=== PATIENT | female | born 1965 | race African-American/Black ===

== ENCOUNTER 2020-03-28 00:33 | Day surgery (SDC) | payer BC, SELFPAY ==
[2020-03-25 14:37] VITALS: BMI 37.8
[2020-03-28 06:25] VITALS: BP 130/94; PULSE 79; RESP 14; TEMP 36.6; O2SAT 100
[2020-03-28 06:28] VITALS: BMI 40.6
--- NOTE | 2020-03-28 07:01 | WPDANESEPPF ---
Anes - Initial Pre Proc Eval Procedure: Operation Date: 03/28/20 07:30 Proposed Procedures p Screening Colonoscopy - Arie Castro MD Date/Time: 03/28/20 07:01 Surgeon: Arie Castro MD Pre Op Diagnosis: Neoplasm Screening Patient Data Age: 55 Gender: F Height: 5 ft 4 in Weight: 107.3 kg Last Vital Signs Temp 36.6 C 03/28/20 06:25 Pulse 79 03/28/20 06:25 Resp 14 03/28/20 06:25 BP 130/94 H 03/28/20 06:25 Pulse Ox 100 03/28/20 06:25 Allergies Allergy/AdvReac Type Severity Reaction Status Date / Time No Known Allergies Allergy Verified 03/28/20 06:18 Home Medications Medication Instructions Recorded Confirmed Type ergocalciferol (vitamin D2) 1,250 mcg PO WEEKLY 03/25/20 03/28/20 History [Vitamin D2] hydrochlorothiazide 12.5 mg PO QAM PRN 03/25/20 03/25/20 History metoprolol succinate 50 mg PO DAILY PRN 03/25/20 03/25/20 History sertraline 25 mg PO DAILY PRN 03/25/20 03/25/20 History sumatriptan succinate 50 mg PO ONCE PRN 03/25/20 03/25/20 History Patient hx anesthesia problems: none Family hx anesthesia problems: none [facility] Family History Family History Mother Hypertension Family history of elevated blood lipids Family history of diabetes mellitus in first degree relative Grandparent Cerebrovascular accident Social History Social History Smoking status: Never smoker Second hand tobacco smoke exposure: No Alcohol intake: current Drinks per week: 1 Substance use: never Substance use type: does not use Gender identity (if verbalized by the patient): Female Anes - Eval Final PreProcedure Day of Procedure 03/28/20 07:01 Patient weight: morbidly obese Heart: regular rate and rhythm Lungs: clear to auscultation Airway: Mallampati scale class II Neurological: alert and oriented Last oral intake: >/= 8 hours ASA classification: III Emergent: no Anesthesia type and monitoring: standard monitoring Informed Consent: The patient's anesthetic plan and its attendant risks and benefits were discussed with the patient/family/POA. Questions were solicited and answers provided to the satisfaction of the patient/family/POA.
--- NOTE | 2020-03-28 07:12 | P.HP_ITS ---
History of Present Illness History of Present Illness Consent: Risks, benefits, and alternatives have been discussed and questions answered. Patient agrees to proceed with procedure. Chief complaint: Neoplasm Screening Narrative: Maggie Belcher is a 55 year old femaleWith a history of polyps. [facility] Family History Family History Mother Hypertension Family history of elevated blood lipids Family history of diabetes mellitus in first degree relative Grandparent Cerebrovascular accident Social History Social History Smoking status: Never smoker Second hand tobacco smoke exposure: No Alcohol intake: current Drinks per week: 1 Substance use: never Substance use type: does not use Gender identity (if verbalized by the patient): Female Meds Home Medications and Allergies Home Medications Medication Instructions Recorded Confirmed Type ergocalciferol (vitamin D2) 1,250 mcg PO WEEKLY 03/25/20 03/28/20 History [Vitamin D2] hydrochlorothiazide 12.5 mg PO QAM PRN 03/25/20 03/25/20 History metoprolol succinate 50 mg PO DAILY PRN 03/25/20 03/25/20 History sertraline 25 mg PO DAILY PRN 03/25/20 03/25/20 History sumatriptan succinate 50 mg PO ONCE PRN 03/25/20 03/25/20 History Allergies Allergy/AdvReac Type Severity Reaction Status Date / Time No Known Allergies Allergy Verified 03/28/20 06:18 Vital Signs Vital Signs - 24 hr 03/28/20 06:25 Temperature 36.6 C Pulse Rate 79 Respiratory Rate 14 Blood Pressure 130/94 H Pulse Oximetry 100 Exam Resp: Auscultation: clear to auscultation bilaterally Cardio: Rate: regular rate Rhythm: regular rhythm GI: GI Palp: Yes Soft to palpation and No Tenderness to palpation present (GI) Assessment and Plan Assessment and plan (1) Family history of colonic polyps: Code(s): Z83.71 - Family history of colonic polyps Status: Acute Assessment and Plan: Colonoscopy with possible biopsy or polypectomy or cautery or injection of substances.
[2020-03-28] MEDS: LACTATED RINGERS 1,000 ML 150 ML IV CONT (07:17)
[2020-03-28 07:46] VITALS: BP 115/77; PULSE 77; RESP 27; O2SAT 100
[2020-03-28 07:56] VITALS: BP 122/85; PULSE 71; RESP 24; O2SAT 100
[2020-03-28 08:06] VITALS: BP 132/89; PULSE 63; RESP 18; O2SAT 100
[2020-03-28 08:16] VITALS: BP 130/89; PULSE 63; RESP 16; O2SAT 100
== END 2020-03-28 08:20 | disposition home or self-care (01) ==
PROVIDERS: PCP Family Medicine; Visit Provider Internal Medicine Gastroenterology
PROC: 0DJD8ZZ Inspection of Lower Intestinal Tract, Via Natural or Artificial Opening Endoscopic (ICD-10-PCS; CPT 45378; principal; 2020-03-28 07:30)
DX: Z12.11 Encounter for screening for malignant neoplasm of colon (principal); D12.3 Benign neoplasm of transverse colon; K63.5 Polyp of colon; K64.8 Other hemorrhoids; Z83.71 Family history of colonic polyps; E66.01 Morbid (severe) obesity due to excess calories; Z68.41 Body mass index [BMI] 40.0-44.9, adult
CPT/HCPCS: 45380; 88305; J2704; J7120

== ENCOUNTER → 2020-12-09 11:18 | Outpatient (CLI) | payer BC, SELFPAY ==
--- NOTE | ~2020-12-09 | MM_ITS ---
EXAMINATION: MM screening maged BI w tomasa HISTORY: Screening mammogram TECHNIQUE: Craniocaudal and mediolateral oblique 3-D tomosynthesis images were obtained and synthetic 2-D images were generated. CAD analysis was submitted and interpreted. COMPARISON: No prior mammogram is available for comparison at this institution. BREAST PARENCHYMAL COMPOSITION: There are scattered areas of fibroglandular density. FINDINGS: There are bilateral asymmetries involving the upper outer quadrants primarily. Bilateral diagnostic mammography is recommended, with ultrasound if required. IMPRESSION: 1. Bilateral mammographic asymmetries 2. Bilateral diagnostic mammography is recommended, with ultrasound if required BI-RADS Category 0: Incomplete: Needs additional imaging evaluation. Reviewed, dictated and finalized at location A. TION MIXER
== END ==
PROVIDERS: PCP Family Medicine; Visit Provider Physician Assistant
DX: Z12.31 Encounter for screening mammogram for malignant neoplasm of breast (principal); R92.8 Other abnormal and inconclusive findings on diagnostic imaging of breast
CPT/HCPCS: 77063; 77067

== ENCOUNTER 2021-01-26 08:09 | Outpatient (CLI) | payer BC, SELFPAY ==
--- NOTE | ~2021-01-26 | MMUS_ITS ---
EXAMINATION: MM diagnostic maged BI w tomasa, US breast BI limited HISTORY: Bilateral upper outer quadrant mammographic asymmetries reported on 12/09/2020 bilateral digi lawrence screening mammogram TECHNIQUE: Additional 3-D tomosynthesis images of both breasts were performed and synthetic 2-D image s were generated. CAD analysis was submitted and interpreted. High resolution bilateral upper outer q uadrant breast ultrasound was performed. COMPARISON: 12/09/2020 bilateral digital screening mammogram FINDINGS: MAMMOGRAPHIC FINDINGS: Bilateral upper outer quadrant mammographic asymmetry is again noted. An approximately 7 mm mass is present in the upper outer quadrant of the left breast. ULTRASOUND: Right breast: Approximately 3.5 mm sonolucency with through transmission posterior enhancement at 10: 00 4 cm from nipple, consistent with small cyst. No suspicious mass is detected in the right breast. Left breast: Approximately 6 x 7 mm sonolucency with through transmission and no internal vascularit y, consistent with simple cyst at 1:00 5 cm from nipple. No suspicious mass is detected in the left breast. IMPRESSION: 1. No mammographic evidence of malignancy 2. Routine annual mammographic screening is recommended. BI-RADS Category 2: Benign finding(s). Reviewed, dictated and finalized at location A. UNDERWRITER IMPRESSION: 1. No mammographic evidence of malignancy 2. Routine annual mammographic screening is recommended. BI-RADS Category 2: Benign finding(s).
== END 2021-01-26 08:10 ==
LOC: MICIMG 08:09
PROVIDERS: PCP Family Medicine; Visit Provider Physician Assistant
DX: R92.8 Other abnormal and inconclusive findings on diagnostic imaging of breast (principal)
CPT/HCPCS: 76642; 77062; 77066; G0279

== ENCOUNTER 2022-01-21 07:47 | Outpatient (CLI) | payer BC, SELFPAY ==
--- NOTE | ~2022-01-21 | US_ITS ---
EXAMINATION: US abdomen limited DATE: 01/21/2022 08:14 INDICATION: Abnormal liver function tests. Right upper quadrant abdominal pain. TECHNIQUE: Multiple grayscale and Doppler ultrasound images of the abdomen were obtained. COMPARISON: None FINDINGS: The visualized portions of the head, body, and tail of the pancreas are normal. There is a 1.6 cm hyperechoic mass in the liver. No liver surface nodularity. The gallbladder is normal in size. No gallstones or gallbladder wall thickening. There was no sonographic Delacruz sign. The common duct is normal and measures 3 mm. IMPRESSION: 1. 1.6 cm hyperechoic liver mass. In the absence of known malignancy or chronic liver disease, this f inding is likely a hemangioma. Reviewed, dictated and finalized at location A. OYEE PLACEMENT SPECIALIST IMPRESSION: 1. 1.6 cm hyperechoic liver mass. In the absence of known malignancy or chronic liver disease, this finding is likely a hemangioma.
== END 2022-01-21 07:48 | disposition home or self-care (01) ==
LOC: ANHIMG 07:51
PROVIDERS: PCP Family Medicine; Visit Provider Nurse Practitioner Gerontology
DX: R74.8 Abnormal levels of other serum enzymes (principal); R16.0 Hepatomegaly, not elsewhere classified
CPT/HCPCS: 76705

== ENCOUNTER 2022-04-06 08:15 | Outpatient (CLI) | payer BC, SELFPAY ==
--- NOTE | ~2022-04-06 | MR_ITS ---
EXAMINATION: MR abdomen wo/w con DATE: 04/06/2022 09:30 INDICATION: Hyperechoic liver mass. TECHNIQUE: Magnetic resonance imaging (MRI) of the abdomen was performed without and with 20 mL Multi natanael intravenous contrast. Sequences included coronal T2-weighted SS-FSE, coronal and axial FS 2D-F IESTA, axial STIR FSE, axial T2-weighted SS-FSE, axial T2-weighted FS SS-FSE, axial diffusion-weighte d SE, axial dual-echo T1-weighted FSPGR, and axial and coronal T1-weighted LAVA. Postcontrast axial T 1-weighted LAVA images were obtained in a time course. Postcontrast coronal T1-weighted LAVA images w ere obtained. COMPARISON: Ultrasound dated 01/21/2022 FINDINGS: There are couple T2 hyperintense hepatic hemangiomas demonstrating characteristic discontiguous perip heral puddling of contrast which fills in on delayed imaging. Hemangiomas measure 1.3 cm in segment 2 of the liver and 1.3 cm in the right hepatic lobe, the latter corresponding to the hyperechoic lesio n identified on prior ultrasound, the hyperechoic appearance again classic for hemangioma. The lesion in segment 2 of the liver is not visualized on the provided ultrasound images. Liver is otherwise un remarkable. Heart size is normal. No pericardial or pleural effusion. Gallbladder, spleen, pancreas, bilateral adrenal glands and kidneys are normal. Visualized portions of the bowels are unremarkable. No pathologically enlarged abdominal lymphadenopathy. Schmorl's node along the superior endplate of L 4. IMPRESSION: 1. A couple 1.3 cm hepatic hemangiomas. Reviewed, dictated and finalized at location A.
[2022-04-06 08:49] LABS: Estimated Glomerular Filt Rate > 60
== END 2022-04-06 08:16 | disposition home or self-care (01) ==
PROVIDERS: PCP Internal Medicine; Visit Provider Internal Medicine
DX: R16.0 Hepatomegaly, not elsewhere classified (principal)
CPT/HCPCS: 74183; A9577

== ENCOUNTER → 2022-04-09 15:46 | Outpatient (CLI) | payer BC, SELFPAY ==
--- NOTE | ~2022-04-09 | MM_ITS ---
EXAMINATION: MM screening maged BI w tomasa HISTORY: Screening mammogram TECHNIQUE: Craniocaudal and mediolateral oblique 3-D tomosynthesis images were obtained and synthetic 2-D images were generated. CAD analysis was submitted and interpreted. COMPARISON: 02/05/2021 bilateral diagnostic mammography and bilateral Limited breast ultrasound 12/09/2020, 12/06/2019, bilateral screening mammogram examinations BREAST PARENCHYMAL COMPOSITION: There are scattered areas of fibroglandular density. FINDINGS: Occasional bilateral low-density circumscribed opacities are noted. There is no evidence of suspicious mass, calcification, or architectural distortion to suggest malignancy in either breast. There has been no suspicious interval change. IMPRESSION: 1. No mammographic evidence of malignancy. 2. Recommend routine screening mammography in one year. BI-RADS Category 2: Benign finding(s). Reviewed, dictated and finalized at location A.
== END ==
PROVIDERS: PCP Internal Medicine; Visit Provider Internal Medicine
DX: Z12.31 Encounter for screening mammogram for malignant neoplasm of breast (principal)
CPT/HCPCS: 77063; 77067

== ENCOUNTER 2022-07-28 08:02 | Outpatient (CLI) | payer BC, SELFPAY ==
--- NOTE | 2022-07-28 | ECG_ITS ---
Measurements Intervals [place] Rate: 55 P: 41 MD: 147 QRS: 11 QRSD: 94 T: 31 QT: 407 QTc: 392 Interpretive Statements SINUS BRADYCARDIA BORDERLINE ST-T WAVE ABNORMALITY- INFERIOR LEADS BASELINE WANDER- II, III, AVR, AVL, AVF BORDERLINE ECG NO PREVIOUS ECG AVAILABLE FOR COMPARISON Electronically Signed On 07-28-2022 9:12:55 CDT by Lebron Salas D.O.
== END 2022-07-28 08:03 | disposition home or self-care (01) ==
PROVIDERS: PCP Internal Medicine; Visit Provider Orthopaedic Surgery
DX: Z01.818 Encounter for other preprocedural examination (principal); R94.31 Abnormal electrocardiogram [ECG] [EKG]
CPT/HCPCS: 93005

== ENCOUNTER 2022-11-03 18:10 | Outpatient (CLI) | payer BC, SELFPAY ==
--- NOTE | ~2022-11-03 | XR_ITS ---
EXAMINATION: XR chest 2V Exam Date/Time: 11/03/2022 18:20 CHEMICAL EQUIPMENT SALES ENGINEER HISTORY: COUGH Comparison: None available. RESULT: Lines, tubes, and devices: None. Lungs and pleura: Clear. Cardiomediastinal silhouette: Unremarkable. Other: No acute osseous or upper abdominal finding. IMPRESSION: No acute cardiopulmonary process. Reviewed, dictated and finalized at location K. ICAL EQUIPMENT SALES ENGINEER
== END 2022-11-03 18:11 | disposition home or self-care (01) ==
PROVIDERS: PCP Internal Medicine; Visit Provider Internal Medicine
DX: R05.9 Cough, unspecified (principal)
CPT/HCPCS: 71046

== ENCOUNTER → 2023-07-15 16:21 | Outpatient (CLI) | payer BC, SELFPAY ==
--- NOTE | ~2023-07-15 | MM_ITS ---
EXAMINATION: MM screening [facility] BI w tomasa HISTORY: Screening mammogram TECHNIQUE: Craniocaudal and mediolateral oblique 3-D tomosynthesis images were obtained and synthetic 2-D images were generated. CAD analysis was submitted and interpreted. COMPARISON: 04/09/2022, 01/26/2021, 12/09/2020 BREAST PARENCHYMAL COMPOSITION: There are scattered areas of fibroglandular density. FINDINGS: No suspicious mass, calcification, or architectural distortion are identified in either grace ast to suggest malignancy. There has been no suspicious interval change. IMPRESSION: 1. No mammographic evidence of malignancy. 2. Recommend routine screening mammography in one year. BI-RADS Category 1: Negative Reviewed, dictated and finalized at location A.
== END ==
PROVIDERS: PCP Internal Medicine; Visit Provider Internal Medicine
DX: Z12.31 Encounter for screening mammogram for malignant neoplasm of breast (principal)
CPT/HCPCS: 77063; 77067

== ENCOUNTER 2023-10-31 14:59 | Outpatient (CLI) | payer BC, SELFPAY ==
--- NOTE | ~2023-10-31 | XR_ITS ---
Lumbosacral Spine: AP and lateral views Clinical History: Pain Findings: The normal lordotic curve is maintained. The vertebral bodies and posterior elements are i ntact. The intervertebral disc spaces are preserved. There is moderate facet arthropathy throughout the lumbar spine. The sacroiliac joints are normally outlined. Impression: Moderate facet arthropathy throughout the lumbar spine. Reviewed, dictated and finalized at location . MONIA DISTILLER Impression: Moderate facet arthropathy throughout the lumbar spine.
== END 2023-10-31 15:00 ==
PROVIDERS: PCP Internal Medicine; Visit Provider Internal Medicine
DX: M54.50 Low back pain, unspecified (principal); M12.88 Other specific arthropathies, not elsewhere classified, other specified site
CPT/HCPCS: 72100

== ENCOUNTER 2024-09-25 14:55 | Outpatient (CLI) | payer BC, SELFPAY ==
[2024-09-25 15:35] LABS: Basophils Percent Auto 0.4 % (0.2-1.2); Eosinophils Percent Auto 0.2 % (0-4.4); Hematocrit 43.6 % (37.0-47.0); Hemoglobin 14.8 g/dL (12.0-15.0); Immature Granulocyte Absolute 0.02 K/mm3 (0.00-0.031); Immature Granulocyte Percent A 0.4 % (0-0.5); Lymphocytes Absolute Auto 1.07 K/mm3 (0.9-3.2); Mean Corpuscular HGB Conc 33.9 g/dl (32-36); Mean Corpuscular Hemoglobin 28.7 pg (26-34); Mean Corpuscular Volume 84.5 fl (80-100); Mean Platelet Volume 10.7 fl (7.4-10.4); Monocytes Absolute Auto 0.4 K/mm3 (0.1-0.6); Monocytes Percent Auto 7.9 % (2.6-8.5); Neutrophils Absolute Auto 3.8 K/mm3 (1.3-6.7); Neutrophils Percent Auto 71.1 % (45.5-73.1); Platelet Count Result 247 k/mm3 (150-375); Red Blood Count 5.16 M/mm3 (4.2-5.4); Red Cell Distribution Width 12.2 % (11.5-14.5); White Blood Count 5.4 K/mm3 (4.5-10.0)
== END 2024-09-25 14:56 | disposition home or self-care (01) ==
LOC: ANHLAB 14:58
PROVIDERS: PCP Internal Medicine; Visit Provider Internal Medicine
DX: R19.7 Diarrhea, unspecified (principal)
CPT/HCPCS: 36415; 85025

== ENCOUNTER 2024-10-03 14:34 | Outpatient (CLI) | payer BC, SELFPAY ==
[2024-10-03 15:03] LABS: Basophils Percent Auto 0.6 % (0.2-1.2); Eosinophils Percent Auto 0.8 % (0-4.4); Hematocrit 41.9 % (37.0-47.0); Hemoglobin 13.8 g/dL (12.0-15.0); Immature Granulocyte Absolute 0.05 K/mm3 (0.00-0.031); Lymphocytes Absolute Auto 1.95 K/mm3 (0.9-3.2); Lymphocytes Percent Auto 39.7 % (18.3-44.2); Mean Corpuscular HGB Conc 32.9 g/dl (32-36); Mean Corpuscular Hemoglobin 27.9 pg (26-34); Mean Corpuscular Volume 84.8 fl (80-100); Mean Platelet Volume 10.1 fl (7.4-10.4); Monocytes Absolute Auto 0.3 K/mm3 (0.1-0.6); Monocytes Percent Auto 6.5 % (2.6-8.5); Neutrophils Absolute Auto 2.5 K/mm3 (1.3-6.7); Neutrophils Percent Auto 51.4 % (45.5-73.1); Platelet Count Result 394 k/mm3 (150-375); Red Blood Count 4.94 M/mm3 (4.2-5.4); Red Cell Distribution Width 12.7 % (11.5-14.5); White Blood Count 4.9 K/mm3 (4.5-10.0)
[2024-10-03 15:18] LABS: Alanine Aminotransferase 16 U/L (6-35); Albumin Level 4.3 g/dL (3.5-5.1); Alkaline Phosphatase 101 U/L (38-126); Anion Gap 6 mmol/L (4-12); Aspartate Amino Transferase 33 U/L (14-36); Bilirubin,Total 0.6 mg/dL (0.2-1.3); Blood Urea Nitrogen 5 mg/dL (7-17); Calcium 10.1 mg/dL (8.4-10.2); Carbon Dioxide 33 mmol/L (22-30); Chloride 101 mmol/L (98-107); Estimated Glomerular Filt Rate > 60; Glucose 89 mg/dL (65-110); Potassium 3.2 mmol/L (3.4-5.0); Sodium 140 mmol/L (137-145)
== END 2024-10-03 14:35 | disposition home or self-care (01) ==
LOC: ANHLAB 14:38
PROVIDERS: PCP Internal Medicine; Visit Provider Internal Medicine
DX: R19.7 Diarrhea, unspecified (principal)
CPT/HCPCS: 36415; 80053; 85025

== ENCOUNTER 2024-10-29 14:13 | Outpatient (CLI) | payer BC, SELFPAY ==
[2024-10-29 15:13] LABS: Anion Gap 6 mmol/L (4-12); Blood Urea Nitrogen 10 mg/dL (7-17); Carbon Dioxide 29 mmol/L (22-30); Chloride 105 mmol/L (98-107); Estimated Glomerular Filt Rate > 60; Glucose 71 mg/dL (65-110); Potassium 3.8 mmol/L (3.4-5.0); Sodium 140 mmol/L (137-145)
== END 2024-10-29 14:14 | disposition home or self-care (01) ==
PROVIDERS: PCP Internal Medicine; Visit Provider Internal Medicine
DX: E87.6 Hypokalemia (principal)
CPT/HCPCS: 36415; 80048; 83735

== ENCOUNTER 2024-12-07 10:20 | Outpatient (CLI) | payer BC, SELFPAY ==
--- NOTE | ~2024-12-07 | MM_ITS ---
EXAMINATION: MM screening [facility] BI w tomasa HISTORY: Screening TECHNIQUE: Craniocaudal and mediolateral oblique 3-D tomosynthesis images were obtained and synthetic 2-D images were generated. CAD analysis was submitted and interpreted. COMPARISON: Comparison to multiple prior studies sequentially, with oldest reviewed study dated 03/20. BREAST PARENCHYMAL COMPOSITION: Not dense: There are scattered areas of fibroglandular density. FINDINGS: There is no evidence of suspicious mass, calcification, or architectural distortion to sugg est malignancy in either breast. There has been no suspicious interval change. IMPRESSION: 1. No mammographic evidence of malignancy. 2. Recommend routine screening mammography in one year. BI-RADS Category 1: Negative Reviewed, dictated and finalized at location A. GER FINE DINING
== END 2024-12-07 10:21 | disposition home or self-care (01) ==
PROVIDERS: PCP Internal Medicine; Visit Provider Internal Medicine
DX: Z12.31 Encounter for screening mammogram for malignant neoplasm of breast (principal)
CPT/HCPCS: 77063; 77067

== ENCOUNTER 2025-07-23 19:35 | Observation (INO) | payer BC, SELFPAY ==
[2025-07-23] VITALS (10 sets, daily range): BP systolic 107–126; BP diastolic 65–73; PULSE 55–64; RESP 15–19; TEMP 36.3; O2SAT 95–98
--- NOTE | ~2025-07-23 | MR_ITS ---
EXAMINATION: MR MRCP wo/w con/w 3D wo ind DATE: 07/27/2025 09:31 INDICATION: Choledocholithiasis TECHNIQUE: Magnetic resonance imaging (MRI) of the abdomen was performed without and with 16 mL Multihance intravenous contrast. Sequences included coronal T2- weighted SS-FSE, coronal T2-weighted FS SS-FSE, coronal T2-weighted FS FIESTA, axial T2-weighted FS FIESTA, axial T2-weighted FIESTA, sagittal T2-weighted SS- FSE, axial T1-weighted dual-echo FSPGR, axial T2-weighted SS-FSE, axial T1- weighted LAVA, axial T2-weighted STIR FSE. Thick-slab T2-weighted FRFSE-XL images were obtained for magnetic resonance cholangiopancreatography (MRCP). Rotating maximum intensity projection 3-D reconstructions of the volumetric data were created by the technologist. Postcontrast sequences included a time course of axial T1-weighted LAVA. COMPARISON: CT dated 07/23/2025 and MR dated 04/06/2022 FINDINGS: ABDOMEN MRI: Heart size is normal. No pericardial effusion. Very small bilateral pleural effusions. There are couple T2 hyperintense hepatic lesions measuring 1.8 cm in the left hepatic lobe and 1.5 cm in the right hepatic lobe which are not significantly changed since the prior MRI. Both lesions demonstrate peripheral discontiguous puddling of contrast which gradually fills in on the delayed imaging consistent with hemangiomas. Gallbladder is no longer visualized and there is mild stranding and small focus of low signal intensity gas at the gallbladder fossa consistent with interval cholecystectomy. Persistent mild intrahepatic ductal or ductal dilation in the left hepatic lobe. Spleen, pancreas, bilateral adrenal glands and kidneys are normal. Visualized portions of bowels are unremarkable with no obstruction. No pathologically enlarged abdominal or upper pelvic lymphadenopathy. Mild to moderate thoracic and mild lumbar spondylosis. Bone marrow signal is normal. ABDOMEN MRCP: There is persistent dilation of the common hepatic duct which measures up to 1.7 cm tapering to 1.2 cm the common bile duct with further tapering in the more distal common bile duct. There are 2 low signal intensity filling defects within the mid common bile duct which measure 4 mm and 3 mm consistent with persistent choledocholithiasis. IMPRESSION: 1. Changes consistent with recent interval cholecystectomy. 2. Persistent mild intrahepatic biliary ductal dilation the left hepatic lobe and dilation of the common hepatic duct measuring up to 1.7 cm and the common bile duct measuring up to 1.2 cm. Choledocholithiasis with a couple 3 mm and 4 mm stones in the dependent mid common bile duct which do not appear currently obstructing. 3. Stable appearance since MRI from 2021 and a couple hepatic hemangiomas which account for the low density lesions of concern on the recent prior CT. 4. Very small bilateral pleural effusions. Reviewed, dictated and finalized at location A. IMPRESSION: 1. Changes consistent with recent interval cholecystectomy. 2. Persistent mild intrahepatic biliary ductal dilation the left hepatic lobe a nd dilation of the common hepatic duct measuring up to 1.7 cm and the common bi le duct measuring up to 1.2 cm. Choledocholithiasis with a couple 3 mm and 4 mm stones in the dependent mid common bile duct which do not appear currently obs tructing. 3. Stable appearance since MRI from 2021 and a couple hepatic hemangiomas which account for the low density lesions of concern on the recent prior CT. 4. Very small bilateral pleural effusions.
--- NOTE | ~2025-07-23 | XR_ITS ---
EXAMINATION: 07/24/2025 13:58 DATE: 07/24/2025 14:17 CDT INDICATION: Cholecystectomy, intraoperative cholangiogram TECHNIQUE: Intraoperative cholangiogram with 2 contrast run(s) provided for review. FINDINGS: There is cannulation and contrast administration into the cystic duct remnant. There is a long cystic duct with a low insertion, a normal variant. The common duct and common hepatic ducts are dilated. There are filling defects distal common bile duct which may represent stones or gas. There is obstruction to flow of contrast into the duodenum. IMPRESSION: 1. Filling defects distal common duct, suspicious for stones versus gas. There is partial obstruction to flow of contrast into the duodenum. The bile ducts are dilated. Reviewed, dictated and finalized at location O. IMPRESSION: 1. Filling defects distal common duct, suspicious for stones versus gas. There is partial obstruction to flow of contrast into the duodenum. The bile ducts a re dilated.
--- NOTE | ~2025-07-23 | XR_ITS ---
EXAMINATION: XR chest 2V 07/23/2025 20:28 INDICATION: Back pain and shortness of breath PROCEDURE: 2 view chest COMPARISON: 11/03/2022 FINDINGS: The lungs are clear. The cardiomediastinal silhouette is within normal limits. There are no pleural effusions. There is no pneumothorax suspected. IMPRESSION: 1: NO ACUTE CARDIOPULMONARY DISEASE. Reviewed, dictated and finalized at location O.
--- NOTE | ~2025-07-23 | US_ITS ---
EXAMINATION: US right upper quadrant DATE: 07/24/2025 11:17 INDICATION: Acute cholecystitis TECHNIQUE: Multiple grayscale and Doppler ultrasound images of the abdomen were obtained. COMPARISON: Ultrasound dated 01/21/2022, CT dated 07/23/2025 and MRI dated 04/06/2022 FINDINGS: The pancreatic head and body are normal in appearance. The pancreatic tail is not visualized. The visualized proximal abdominal aorta and inferior vena cava are normal. Liver has normal echogenicity and contour, with a smooth surface. Again seen is a hyperechoic lesion in the right hepatic lobe currently measuring up to 1.7 cm in maximal diameter which corresponds to a hemangioma on the prior CT and MRI. A second hemangioma seen in the cephalad left hepatic lobe is not identified on the ultrasound images likely due to its position near the diaphragm. No intrahepatic biliary duct dilation suspected. Portal venous flow was seen in the hepatopetal, normal direction and has normal Doppler waveform. Echogenic and shadowing stones are seen in the region of the neck of the gallbladder. Gallbladder is nondilated but demonstrate prominent edematous wall thickening which could be seen with cholecystitis either acute or chronic, hepatitis or other liver disease, renal or heart failure or other cause of ge neralized edema. Sonographic Delacruz sign was reported as negative by the assistant hairstylist although sensitivity could be decreased as patient was reportedly on analgesics. IMPRESSION: 1. Cholelithiasis with prominent edematous wall thickening of the gallbladder which could be seen with acute cholecystitis. There is however no dilation of the gallbladder as typically seen with acute cholecystitis and the sonographic Delacruz sign was negative albeit with reduced sensitivity and differential would include chronic cholecystitis and hepatitis rather liver disease or heart, heart failure, renal failure or other generalized edema forming states. If clinically indicated could consider HIDA scan for further evaluation. Reviewed, dictated and finalized at location A. IMPRESSION: 1. Cholelithiasis with prominent edematous wall thickening of the gallbladder w hich could be seen with acute cholecystitis. There is however no dilation of th e gallbladder as typically seen with acute cholecystitis and the sonographic Mu rphy sign was negative albeit with reduced sensitivity and differential would i nclude chronic cholecystitis and hepatitis rather liver disease or heart, heart failure, renal failure or other generalized edema forming states. If clinicall y indicated could consider HIDA scan for further evaluation.
--- NOTE | ~2025-07-23 | CT_ITS ---
EXAM: CT abdomen pelvis w con - 07/23/2025 23:43 CDT History: 60 years old Female with RUQ abd pain, transaminitis TECHNIQUE: Multidetector CT of the abdomen and pelvis with intravenous contrast. Coronal and sagittal reformats were also provided for review. Automatic exposure control was used for this study. CONTRAST: 100 cc of Optiray 350 was used for this study. COMPARISON: None Available. FINDINGS: VISUALIZED CHEST: Visualized lungs are clear. ABDOMEN and PELVIS: LIVER: Multiple subcentimeter hypodensities are seen in the liver, too small to accurately characterize. GALLBLADDER: Diffuse wall thickening, mucosal hyperenhancement and pericholecystic fat stranding, highly concerning for acute cholecystitis, BILE DUCTS: No dilatation. SPLEEN: Within normal limits. PANCREAS: Within normal limits. ADRENAL GLANDS: Within normal limits. KIDNEYS and URETERS: No hydronephrosis or hydroureter. No nephroureterolithiasis. URINARY BLADDER: Within normal limits. STOMACH and BOWEL: No abnormal bowel wall thickening. No obstruction. REPRODUCTIVE ORGANS: Within normal limits. MESENTERY/PERITONEAL CAVITY: No free fluid or pneumoperitoneum. LYMPH NODES: No abdominal or pelvic lymphadenopathy. ABDOMINAL WALL: Within normal limits. VASCULATURE: Within normal limits. MUSCULOSKELETAL: Multilevel degenerative changes of the spine. IMPRESSION: 1. Findings concerning for acute cholecystitis. Ultrasound can be performed for further evaluation, as clinically indicated. 2. Multiple subcentimeter hypodensities are seen in the liver, incompletely evaluated on current examination. Nonemergent outpatient MRI is recommended for further evaluation, as clinically indicated. Reviewed, dictated and finalized at location N. IMPRESSION: 1. Findings concerning for acute cholecystitis. Ultrasound can be performed fo r further evaluation, as clinically indicated. 2. Multiple subcentimeter hypodensities are seen in the liver, incompletely ev aluated on current examination. Nonemergent outpatient MRI is recommended for f urther evaluation, as clinically indicated.
--- OUTSIDE RECORDS SUMMARY | 2025-07-23 19:37 | XMS_ITS | Clinical Summary ---
Author Organization [facility] [employer] Address [address] [place] [address] Care Team Providers Care Health Economist Name Role Phone Ayaka Abdul MD Primary Care Provider [phone] Source Comments [facility],non[facility] Affiliates and Associated Physician Practices is amultiple site organization consisting of ambulatory clinics and hospital sitesin [place], [place], [place] and [place]. This disclosure is being madepursuant to the Care Everywhere program and may not contain all information available regarding this patient. Last updated 18.[facility] [employer] Allergies No known active allergies Medications * Be aware that medications may not be up to date on this document. Alwaysverify current medications with the patient. sertraline (ZOLOFT) 100 MG tablet Take 1.5 (one and one-half) tablets by mouth once daily 2 Active ubrogepant (Ubrelvy) 50 MG tablet Take 1 (one) tablet by mouth daily as needed - may repeat one time for Migraine Maximum daily dose: 200mg/24 hours Active cycloSPORINE (Restasis) 0.05 % ophthalmic suspension Instill 1 (one) drop into both eyes 2 times daily Active triamcinolone acetonide (Kenalog) 0.1 % ointment Apply to affected area 2 times daily as needed 1 Active Linzess 145 MCG capsule TAKE 1 CAPSULE BY MOUTH DAILY 30 MINUTES BEFORE FIRST MEAL OF THE DAY ON AN EMPTY STOMACH 2 Active metoprolol tartrate IR (Lopressor) 25 MG tablet Take 1 (one) tablet by mouth once daily Active omeprazole (PriLOSEC) 20 MG capsule TAKE 1 CAPSULE BY MOUTH DAILY BEFORE BREAKFAST 30 capsule 5 4 Active Active Problems Problem Noted Date Diagnosed Date Morbid obesity 11/29/2022 Immunizations Immunization Administration Dates Next Due INFLUENZA VACCINE, QUADR. (F LUZONE; FLULAVAL; FLUARIX; AFLURIA QUADRIVALENT; 6MO+), 0.5 ML (IIV4) 10/08/2019 Family History Medical History Relation Name Comments Cancer - Colon Brother 1 Diabetes - Type 2 Brother 1 Hypertension Brother 2 Cancer - Colon Mother Hypertension Mother Relation Name Status Comments Brother 1 Brother 2 Father Mother Social History Tobacco Use Types Packs/Day Years Used Date Smoking Tobacco: Never Smokeless Tobacco: Never Tobacco Cessation:Counseling Given: Not Answered Alcohol Use Standard Drinks/Week Comments Yes 0 (1 standard drink = 0.6 oz pur e alcohol) occasionally AUDIT-C Answer Date Recorded Q1: How often do you have a drink containing alc ohol? Monthly or less 11/29/2022 Q2: How many drinks containi ng alcohol do you have on a typical day when you are drinking? 1 or 2 11/29/2022 Q3: How often do you have si x or more drinks on one occasion? Never 11/29/2022 Hunger Vital Sign Answer Date Recorded Within the past 12 months, y ou worried that your food would run out before you got the money to buy more. Never true 11/30/19 23 Within the past 12 months, t he food you bought just didn't last and you didn't have money to get more. Never true 11/30/2022 Comments No Sex and Gender Information Value Date Recorded Sex Assigned at Female 12/11/2021 11:01 AM CRANKSHAFT BALANCER Legal Sex Female 10:54 AM CRANKSHAFT BALANCER Gender Identity Female 12/11/2021 11:01 AM CRANKSHAFT BALANCER Sexual Orientation Not on file Last Filed Vital Signs Vital Sign Reading Time Taken Comments Blood Pressure 126/82 11/29/2023 12:22 PM CRANKSHAFT BALANCER Pulse 55 11/29/2023 12:22 PM CRANKSHAFT BALANCER Temperature 36.3 C (97.4 F) 11/29/2023 12:22 PM CRANKSHAFT BALANCER Respiratory Rate 18 05/30/2023 12:41 PM CDT Oxygen Saturation 97% 11/29/2023 12:22 PM CRANKSHAFT BALANCER Inhaled Oxygen Concentration - - Weight 101 kg (222 lb 9.6 oz) 11/29/2023 12:22 P M CRANKSHAFT BALANCER Height 165.1 cm (5' 5) 11/29/2023 12:22 PM CRANKSHAFT BALANCER Body Mass Index 37.04 11/29/2023 12:22 PM CRANKSHAFT BALANCER Plan of Treatment Health Maintenance Due Date Last Done Comments COLOGUARD (AGES 45-75) - COLON CA SCREENING 1967 COLON MONITORING 1967 COLONOSCOPY - COLON CA SCREENING 1967 CT COLONOGRAPHY - COLON CA SCREENING 1967 Colorectal Cancer Screening 1967 FIT - COLON CA SCREENING 1967 FLEX SIG - COLON CA SCREENING 1967 LIPID TESTING 1967 MAMMOGRAM 1967 HIV SCREENING 1982 HEPATITIS C SCREENING 02/19/1985 DTAP/TDAP/TD VACCINES (1 - Tdap) 1986 HEPATITIS B VACCINE (1 of 3 - 19+ 3-dose series) 1986 PAP SMEAR 02/25/1988 PNEUMOCOCCAL VACCINE 50+ (1 of 1 - PCV) 2017 ZOSTER VACCINE (1 of 2) 2017 COVID-19 VACCINE (1 - season) 2024 DEPRESSION SCREENING 11/21/2024 INFLUENZA VACCINE (#1) 2025 10/08/2019 SCREENING FOR DIABETES 07/15/2026 3, 02/28/2023, 11/30/2022, Additional history exists HIB VACCINE Aged Out No longer eligi ble based on patient's age to complete this topic HPV VACCINE Aged Out No longer eligi ble based on patient's age to complete this topic MENINGOCOCCAL (Group B) VACCINE SHARED DECISION-MAKING Aged Out No longer eligible based on patient's age to complete this topic MENINGOCOCCAL GROUPS A/C/Y/W VACCINE Aged Out No longer eligible based on patient's age to complete this topic Procedures Procedure Name Priority Date/Time Associated Diagnosis Comments COMPREHENSIVE METABOLIC PANEL Routine 07/15/2023 12:40 PM CDT Morbid obesity Bariatric surgery status Vitamin deficiency Vitamin D deficiency Postsurgical malabsorption from Last 3 Months or Most Recently Relevant to Health Maintenance Results * (ABNORMAL) COMPREHENSIVE METABOLIC PANEL (07/15/2023 12:40 PM CDT) Glucose 82 70 - 99 mg/dL [facility] ACCOUNT BILL BUN 5(L) 6 - 24 mg/dL [facility] ACCOUNT BILL Creatinine 0.68 0.57 - 1.00 mg/dL [facility] ACCOUNT BILL eGFR by CKD-EPI 102 >59 mL/min/1.7 3 [facility] ACCOUNT BILL BUN/Creatinine Ratio 7(L) 9 - 23 [facility] ACCOUNT BILL Sodium 144 134 - 144 mmol/L [facility] ACCOUNT BILL Potassium 3.6 3.5 - 5.2 mmol/L [facility] ACCOUNT BILL Chloride 105 96 - 106 mmol/L [facility] ACCOUNT BILL CO2 26 20 - 29 mmol/L [facility] ACCOUNT BILL Calcium 10.2 8.7 - 10.2 mg/dL [facility] ACCOUNT BILL Protein Total 7.4 6.0 - 8.5 g/dL [facility] ACCOUNT BILL Albumin 4.4 3.8 - 4.9 g/dL [facility] ACCOUNT BILL Globulin Total 3.0 1.5 - 4.5 g/dL [facility] ACCOUNT BILL Albumin/Globulin Ratio 1.5 1.2 - 2.2 [facility] ACCOUNT BILL Bilirubin Total 0.5 0.0 - 1.2 mg/dL [facility] ACCOUNT BILL Alkaline Phosphatase 160(H) 44 - 121 IU/L [facility] ACCOUNT BILL AST 20 0 - 40 IU/L [facility] ACCOUNT BILL ALT 15 0 - 32 IU/L [facility] ACCOUNT BILL Comment:FASTING Blood BLOOD SPECIMEN / Unknown 07/15/2023 12:40 PM CDT 07/15/2023 Narrative Resulting Agency Comment Lab Testing performed at: [facility] [place] [address] [id number] Balbina Ospina APRN-[facility] - CHEMISTRY NIDHI WREN Final Result [facility] ACCOUNT BILL [address] [place] [address] from Last 3 Months or Most Recently Relevant to Health Maintenance Insurance ANTHEM ANTHEM Advance Directives * Full Code (Latest Code Status on File) Date Activated Date Inactivated Comments 11/29/2022 12:52 PM 12/01/2022 7:23 AM Care Teams Health Economist Relationship Specialty Start Date End Date Ayaka Abdul MD [address] [place] [id number] PCP - General Internal Medicine 08/03/22
--- OUTSIDE RECORDS SUMMARY | 2025-07-23 19:37 | XMS_ITS | Clinical Summary ---
Author Organization [facility] Medical Office Building A Address [address] [place] [address] Care Team Providers Care Hat Maker Name Role Phone Destiney Greenfield MD Primary Care Provide r Allergies No known active allergies Medications magnesium oxide (MAG-OX) 250 mg (150.8 mg elemental) tabletIndicatio ns:hypomagnesem ia 1 tablet (250 mg total) daily Active metoprolol tartrate (LOPRESSOR) 25 mg immediate release tablet Take 1 tablet (25 mg total) by mouth daily as needed Active linaCLOtide (LINZESS) 145 mcg capsule Take 1 capsule (145 mcg total) by mouth daily 90 capsule 5 Active omeprazole (PriLOSEC) 20 mg capsule Take 1 capsule (20 mg total) by mouth daily 90 capsule 5 Active semaglutide (OZEMPIC) 1 mg/dose (4 mg/3 mL) pen injector injection Inject 1 mg under the skin every 7 days Active omeprazole (PriLOSEC) 20 mg capsule Take 1 capsule (20 mg total) by mouth daily 06/25/20 25 Discontinu ed(Reorder ) linaCLOtide (LINZESS) 145 mcg capsule 1 capsule (145 mcg total) daily 06/25/20 25 Discontinu ed(Reorder ) Active Problems Problem Noted Date Diagnosed Date Class 1 obesity due to exces s calories with serious comorbidity and body mass index (BMI) of 32.0 to 32.9 in adult 06/25/2025 Assessment & Plan (06/25/2025 10:54 AM CDT): She was counseled on the importance of maintaining a healthy weight and the risks of obesity. Weight loss recommended. Constipation 06/25/2025 Tinnitus of both ears 06/25/2025 Assessment & Plan (06/25/2025 10:53 AM CDT): Sickle cell trait 06/25/2025 Liver lesion 06/25/2025 Family history of colon cancer in mother 025 Family history of colon cancer 06/25/2025 History of colonic polyps 06/25/2025 Encounter for screening colonoscopy 06/25/2025 Palpitations 04/06/2014 Overview (02/23/2017): PALPITATIONS HTN (hypertension) 04/06/2014 Overview (2017): HYPERTENSION NOS Assessment & Plan (06/25/2025 10:53 AM CDT): Encounters Date Type Department Care Team Description 07/18/2025 10:48 AM CDT Anesthesia Event [address] [address] Alf Watts MD 07/18/2025 10:00 AM CDT - 07/18/2025 10:30 AM CDT Surgery [address] [address] Isaias Grey MD COLON REMOVAL SNARE 07/18/2025 8:52 AM CDT - 07/18/2025 12:27 PM CDT Hospital Encounter [address] [address]Isaias Higgins MD Family history of colon cancer in mother; Family history of colon cancer; History of colonic polyps; Encounter for screening colonoscopy Discharge Disposition: Discharge to home or self care 07/02/2025 Orders Only [facility] Primary Care at [address] [place] [phone] Destiney Perez MD Screening mammogram for breast cancer (Primary Dx) 07/01/2025 10:53 AM CDT - 07/01/2025 11:59 PM CDT Hospital Encounter [address] [address] Breast pain, left Discharge Disposition: Discharge to home or self care 07/01/2025 10:53 AM CDT - 07/01/2025 11:59 PM CDT Hospital Encounter [address] [address] Breast pain, left Discharge Disposition: Discharge to home or self care 07/01/2025 Results Follow-Up [facility] Primary Care at [address] [phone] Destiney Perez MD Diagnostic Mammogram Left W Kervin 06/26/2025 Results Follow-Up [facility] Primary Care at [address] [phone] Destiney Perez MD Hepatitis B surface antibody (immune status) Blood, Hepatitis B Surface Antigen Blood, Thyroid Function [place], Additional followed-up results: 8 06/26/2025 Telephone [facility] Primary Care at [address] [phone] Destiney Perez MD Prior Auth (Linzess) 06/25/2025 11:15 AM CDT Lab [address] Need for hepatitis B screening test; Encounter for wellness examination; Need for hepatitis C screening test 06/25/2025 10:00 AM CDT Office Visit [facility] Primary Care at [address] [phone] Destiney Perez MD Encounter for wellness examination (Primary Dx); Encounter to establish care; Primary hypertension; Need for hepatitis B screening test; Need for hepatitis C screening test; Encounter for screening for HIV; Class 1 obesity due to excess calories with serious comorbidity and body mass index (BMI) of 32.0 to 32.9 in adult; Tinnitus of both ears; Need for shingles vaccine; Breast tenderness in female; Encounter for completion of form with patient 06/25/2025 Telephone [facility] Gastroenterology at [address] [place] [address] Isaias Grey MD 06/25/2025 Orders Only [facility] Primary Care at [address] [place] [address] Destiney Perez MD Breast pain, left (Primary Dx); Colon cancer screening; Tinnitus of both ears; Sensation of fullness in ear, unspecified laterality from Last 3 Months Immunizations Immunization Administration Dates Next Due Influenza, Quadrivalent, Spl it, Preservative Free, Intramuscular 10/08/2019 ZOSTER Recombinant 06/25/2025 Surgical History Surgery Date Site/Laterality Comments BARIATRIC SURGERY 11/21/2018 - 11/20/2019 KELOID EXCISION 11/21/2004 - 11/20/2005 HYSTERECTOMY 11/21/2004 - 11/20/2005 UPPER GASTROINTESTINAL ENDOSCOPY 11/21/2021 - 11/20/2022 COLONOSCOPY 11/21/2021 - 11/20/2022 COLONOSCOPY 07/18/2025 Medical History Medical History Date Comments Colon polyp Hypertension Family History Medical History Relation Name Comments Colon cancer Brother Diabetes Brother Colon cancer Cousin Cancer Maternal Grandmother Diabetes Maternal Grandmother Breast cancer Maternal cousin Colon cancer Mother Diabetes Mother Prostate cancer Mother's Brother Lung cancer Mother's Sister Ovarian cancer Neg Hx Thyroid cancer Neg Hx Relation Name Status Comments Brother Cousin Maternal Grandmother Maternal cousin Mother Mother's Brother Mother's Sister Social History Tobacco Use Types Packs/Day Years Used Date Smoking Tobacco: Never Passive Smoke Exposure: Never Smokeless Tobacco: Never Tobacco Cessation:Counseling Given: Not Answered Alcohol Use Standard Drinks/Week Comments Yes 0 (1 standard drink = 0.6 oz pur e alcohol) PHQ-2 Answer Date Recorded PHQ-2 Total Score (If total score is 3 or more points, staff should administer the PHQ-9) 0 06/25/2025 AUDIT-C Answer Date Recorded Q1: How often do you have a drink containing alc ohol? Monthly or less 07/17/2025 Q2: How many drinks containi ng alcohol do you have on a typical day when you are drinking? 1 or 2 07/17/2025 Q3: How often do you have si x or more drinks on one occasion? Never 07/17/2025 Personal Safety Answer Date Recorded Have you ever been in or are you currently in a harmful physical or emotional relationship or is someone making you feel afraid or unsafe? Patient unable to answer 07/18/2025 Comments No Sex and Gender Information Value Date Recorded Sex Assigned at Not on file Legal Sex Female 1:03 AM DIRECTOR ON AIR Gender Identity Female 06/19/2025 8:22 AM CDT Sexual Orientation Straight 06/19/2025 8: 22 AM CDT Obstetrics History Para Term AB IAB SAB Ectopic Multiple Livin g Live Births 3 3 Date Outcome GA Total Labor Labor/2nd/3rd Weight Sex Type Anes PTL Guerline A1 A5 Name Clin Last Filed Vital Signs Vital Sign Reading Time Taken Comments Blood Pressure 119/81 07/18/2025 12:12 PM CDT Pulse 61 07/18/2025 12:12 PM CDT Temperature 36.2 C (97.2 F) 07/18/2025 12:12 PM CDT Respiratory Rate 16 07/18/2025 12:12 PM CDT Oxygen Saturation 99% 07/18/2025 12:12 PM CDT Inhaled Oxygen Concentration - - Weight 80.7 kg (178 lb) 07/18/2025 9:06 AM CDT Height 160 cm (5' 3) 07/18/2025 9:06 AM CDT Body Mass Index 31.53 07/18/2025 9:06 AM CDT Plan of Treatment Health Maintenance Due Date Last Done Comments DTaP/Tdap/Td Vaccine (1 - Tdap) 1978 Covid-19 Vaccine (3 - 2024-2 6 season) 2025 07/03/2021, 06/11/2021 Influenza Vaccine (#1) 2025 10/08/2019 Zoster Vaccine (2 of 2) 08/20/2025 06/25/2025 Breast Cancer Screening-Mammogram 12/07/2025 12/07/2024 Depression Screening 06/25/2026 06/25/2025 Regular Well Visit/Exam 18-64 06/25/2026 06/25/2025 Colon Cancer Screening-Colonoscopy 07/18/2035 07/18/2025, 03/28/2020 Hepatitis B Screening Completed 06/25/2025 Hepatitis C Screening Completed 06/25/2025 Pneumococcal vaccine <65 Aged Out No longer eligible based on patient's age to complete this topic Procedures Procedure Name Priority Date/Time Associated Diagnosis Comments SURGICAL PATHOLOGY STAT 07/18/2025 1: 38 PM CDT Family history of colon cancer in mother Family history of colon cancer History of colonic polyps Encounter for screening colonoscopy COLON REMOVAL SNARE 07/18/2025 1 0:37 AM CDT Family history of colon cancer in mother Family history of colon cancer History of colonic polyps Encounter for screening colonoscopy COLONOSCOPY 07/18/2025 9:39 AM CDT US BREAST LEFT LIMITED Schedule Routine, Read Routine (OP Routine) 07/01/2025 11:41 AM CDT Breast pain, left DIAGNOSTIC MAMMOGRAM LEFT W KERVIN Schedule Routine, Read Routine (OP Routine) 07/01/2025 11:11 AM CDT Breast pain, left EGFR Routine 06/25/2025 11:18 AM CDT Encounter for wellness examination DIFFERENTIAL AUTO Routine 06/25/2025 11: 18 AM CDT Encounter for wellness examination CBC WITH AUTO DIFFERENTIAL Routine 06/25/2025 11:18 AM CDT Encounter for wellness examination COMPREHENSIVE METABOLIC PANEL Routine 06/25/2025 11:18 AM CDT Encounter for wellness examination HEMOGLOBIN A1C Routine 06/25/2025 11:18 AM CDT Encounter for wellness examination LIPID PANEL Routine 06/25/2025 11:18 AM CDT Encounter for wellness examination THYROID FUNCTION CASCADE Routine 06/25/2025 11:18 AM CDT Encounter for wellness examination HEPATITIS B CORE ANTIBODY, TOTAL Routine 06/25/2025 11:18 AM CDT Need for hepatitis B screening test HEPATITIS C ANTIBODY Routine 06/25/2025 11:18 AM CDT Need for hepatitis C screening test HEPATITIS B SURFACE ANTIGEN Routine 06/25/2025 11:18 AM CDT Need for hepatitis B screening test HEPATITIS B SURFACE ANTIBODY (IMMUNE STATUS) Routine 06/25/2025 11:18 AM CDT Need for hepatitis B screening test SCREENING MAMMOGRAM BILATERAL W KERVIN Schedule Routine, Read Routine (OP Routine) 12/07/2024 from Last 3 Months or Most Recently Relevant to Health Maintenance Results * Surgical pathology (07/18/2025 1:38 PM CDT) Tissue (Polyp(s), colon/colorectal, esophageal, gastric) 07/18/2025 11:12 AM CDT Tissue specimen (specimen) (Polyp(s), colon/colorectal, esophageal, gastric) 07/18/2025 11:22 AM CDT Narrative PATHOLOGY [facility] - 07/23/2025 1:03 PM CDT EPIC results best viewed via link to PDF [facility] Department of Pathology [address] [place] [address] Note to Patients: This report may contain a detailed description of human tissue sent by a health care provider to the laboratory for pathologic evaluation. The content of this report is essential for diagnosis and may provide important critical findings. This information may be unfamiliar to patients to review without a medical professional present. It is advised that the patient review this report in the presence of a health care provider who can answer questions and explain the details. Final Report Patient Name: BROWN PENA Address: [address] [place] [address] Gender: F : 1965 (Age: 60) Service: Gastro Location: [facility] Hospital #: [id number] Patient Type: [facility] Taken: 07/18/2025 Received: 07/19/2025 Accessioned: 07/19/2025 Reported: 07/23/2025 Physician(s):Isaias Grey MD Diagnosis: Large intestine, transverse colon polyp, polypectomy -Tubular adenoma -No evidence of high-grade dysplasia or malignancy -See description Large intestine, descending colon polyp, polypectomy -Polypoid fragment of mucosa -No evidence of glandular dysplasia or malignancy -See description Edi Gastelum MD PhD Report Electronically Reviewed and Signed Out By Edi Gastelum MD PhD 07/23/2025 13:03:42 Specimen(s) Received: A: Transverse colon polyp x 1 B: Descending colon polyp x 1 Microscopic Description: Sections from the transverse colon polyp specimen show polypoid fragments with focal adenomatous changes consistent with a tubular adenoma. There is no evidence of high-grade dysplasia or malignancy. Sections from the descending colon polyp specimen show a polypoid fragment with no definitive adenomatous changes. This could represent a small hyperplastic polyp. There is no evidence of glandular dysplasia or malignancy. Clinical correlation and continued follow-up are recommended. Clinical History: Family history of colon cancer in mother. History of colonic polyps. Screening colonoscopy. Gross Description: The specimen is submitted in two formalin containers labeled SHEVELL YE. A. The first container is labeled transverse colon polyp. It is 3 nagel tissue fragments between 2 and 5 mm. All in A. B. The second container is labeled descending colon polyp. It is 1 nagel tissue fragment measuring 2 mm. All in B. T.A. Jaycee Cueva., P.A./Bebe Molina M.D. REPORT IMAGES AND SCANNED DOCUMENTS, IF INCLUDED, ONLY VIEWABLE IN PDF VERSION OF REPORT The performance characteristics of some immunohistochemical stains, fluorescence in-situ hybridization tests and immunophenotyping by flow cytometry cited in this report (if any) were determined by the Surgical Pathology Department at [facility] as part of an ongoing quality control lead program and in compliance with federally mandated regulations drawn from the Clinical Laboratory Improvement Act of 1988 (CLIA '88). Some of these tests rely on the use of analyte specific reagents and are subject to specific labeling requirements by the US Food and Drug Administration. Such diagnostic tests may only be performed in a facility that is certified by the Department of Health and Human Services as a high complexity laboratory under CLIA '88. The FDA has determined that such clearance or approval is not necessary. This test is used for clinical purposes. It should not be regarded as investigational or for research. Nevertheless, federal rules concerning the medical use of analyte specific reagents require that the following disclaimer be attached to the report: This test was developed and its performance characteristics determined by the Surgical Pathology Department [facility]. It has not been cleared or approved by the U. S. Food and Drug Administration. Note for decalcified specimens: This assay has not been validated on decalcified tissues. Results should be interpreted with caution given the possibility of false negativity on decalcified specimens us Isaias Grey MD LAB PATHOLOGY ORDERABLES Final R esult PATHOLOGY [facility] [address] [id number] * Colonoscopy (07/18/2025 9:39 AM CDT) Anatomical Region Laterality Modality Other Narrative Procedure Note Isaias Grey MD - 07/18/2025 9:39 AM CDT [facility] Patient Name: Georgiavell Ye Procedure Date: 07/18/2025 9:39 AM Date of : 1965 Admit Type: Outpatient Age: 60 Gender: Female Attending MD: Isaias Grey M.D., Room: [facility] ENDOSCOPY ROOM 2 Note Status: Finalized Patient Profile: This is a 60 year old female hx of HTN, obesityhere for adenoma surveillance. Last colonoscopy from 03/2020 showed 1 small tubular adenoma and 1 hyperplastic polyp. Multiple family membersincluding mother, sister (50s) and cousin (30s) all have orhad colon cancer. Procedure: Colonoscopy Indications: High risk colon cancer surveillance: Personalhistory of adenoma less than 10 mm in size, Lastcolonoscopy: 2021 Referring MD: Destiney Greenfield M.D. Providers: Isaias Grey M.D. Impression: - Perianal skin tags found on perianal exam. - Two 5 mm polyps in the descending colon and inthe transverse colon, removed with a cold snare.Resected and retrieved. - Diverticulosis in the sigmoid colon, in the descending colon and in the transverse colon. - Tortuous colon. - External and internal hemorrhoids. Recommendation: - Patient has a contact number available for emergencies. The signs and symptoms of potential delayed complications were discussed with thepatient. Return to normal activities tomorrow. Written discharge instructions were provided to thepatient. - Discharge patient to home (with escort). - High fiber diet. - Continue present medications. - Await pathology results. - Repeat colonoscopy in 3 years for surveillancebased on pathology results. - Return to referring provider as previouslyscheduled. Medicines: Monitored Anesthesia Care Complications: No immediate complications. Estimated Blood Loss: Estimated blood loss was minimal. Procedure: Pre-Anesthesia Assessment: - Prior to the procedure, a History and Physicalwas performed, and patient medications and allergieswere reviewed. The risks and benefits of the procedureand the sedation options and risks were discussed withthe patient. All questions were answered and informed consent was obtained. Patient identification and proposed procedure were verified by the physician,the trailer assembler and the air quality technician in the endoscopysuite. Mental Status Examination: normal. Prophylactic Antibiotics: The patient does not requireprophylactic antibiotics. Prior Anticoagulants: The patient has taken no anticoagulant or antiplatelet agents.After reviewing the risks and benefits, the patient was deemed in satisfactory condition to undergo the procedure. The anesthesia plan was to use monitored anesthesia care (MAC). Immediately prior to administration of medications, the patient was re-assessed for adequacy to receive sedatives. The heart rate, respiratory rate, oxygen saturations, blood pressure, adequacy of pulmonary ventilation,and response to care were monitored throughout the procedure. The physical status of the patient was re-assessed after the procedure. The benefits, risks and alternatives of theprocedure and sedation were discussed and informed consentwas obtained. All questions were answered. Please referto the signed informed consent document in the medical record. The bowel preparation used was Miralax and bisacodyl tablets via extended prep with split dose instruction. The scope was passed under directvision. The Pediatric Colonoscope [id number]-H190L [id number] was introduced through the anus and advanced to the the cecum, identified by appendiceal orifice andileocecal valve. The colonoscopy was somewhat difficult dueto a tortuous colon. Successful completion of theprocedure was aided by using manual pressure. The patient tolerated the procedure well. The quality of thebowel preparation was adequate. Bowel prep wasadministered using a split dose. Findings: Skin tags were found on perianal exam. Two flat and sessile polyps were found in the descending colon and transverse colon. The polyps were 5 mm in size. These polyps were removed with a cold snare. Resection and retrieval were complete. A few small-mouthed diverticula were found in the sigmoid colon, descending colon and transverse colon. The colon (entire examined portion) was tortuous. Advancing the scope required applying abdominal pressure. External and internal hemorrhoids were found during retroflexion. Isaias Grey M.D. 07/18/2025 11:35:06 AM Number of Addenda: 0 Note Initiated On: 07/18/2025 9:39 AM Procedure Code(s): --- Professional --- 63012, Colonoscopy, flexible; with removal of tumor(s), polyp(s), or other lesion(s) by snare technique --- Technical --- 22603, Colonoscopy, flexible; with removal of tumor(s), polyp(s), or other lesion(s) by snare technique Diagnosis Code(s): --- Professional --- Z86.0101, Personal history of adenomatous and serrated colon polyps D12.4, Benign neoplasm of descending colon D12.3, Benign neoplasm of transverse colon (hepatic flexure orsplenic flexure) K64.8, Other hemorrhoids K64.4, Residual hemorrhoidal skin tags K57.30, Diverticulosis of large intestine without perforation orabscess without bleeding Q43.8, Other specified congenital malformations of intestine --- Technical --- Z86.0101, Personal history of adenomatous and serrated colon polyps D12.4, Benign neoplasm of descending colon D12.3, Benign neoplasm of transverse colon (hepatic flexure orsplenic flexure) K64.8, Other hemorrhoids K64.4, Residual hemorrhoidal skin tags K57.30, Diverticulosis of large intestine without perforation orabscess without bleeding Q43.8, Other specified congenital malformations of intestine CPT copyright 2022 [employer]. All rights reserved. The codes documented in this report are preliminary and upon medical billing coder reviewmay be revised to meet current compliance requirements. Recognized by the [employer] for promoting quality in endoscopy Isaias Grey MD ENDOSCOPY PROCEDURES Final Resul t * US Breast Left Limited (07/01/2025 11:41 AM CDT) Anatomical Region Laterality Modality Breast Left Ultrasound 07/01/2025 11:4 9 AM CDT Impressions 07/01/2025 11:49 AM CDT No mammographic or sonographic evidence of malignancy. OVERALL FINAL ASSESSMENT: BI-RADS Category 1: Negative. RECOMMENDATION: Focal left breast pain should be managed clinically. Annual screening mammography recommended. Electronically signed by: Oralia Haro M.D. Narrative 07/01/2025 11:49 AM CDT EXAMINATION: LEFT UNILATERAL DIGITAL DIAGNOSTIC MAMMOGRAM AND DIGITAL BREAST TOMOSYNTHESIS; LEFT BREAST SONOGRAM HISTORY: Focal left breast pain COMPARISON: 12/07/2024, 07/15/2023 TECHNIQUE: Full field digital mammographic views of the LEFT breast were performed, including computer aided detection (CAD) and digital breast tomosynthesis (DBT). Directed ultrasound evaluation of the LEFT breast was performed. BREAST PARENCHYMAL COMPOSITION: There are scattered areas of fibroglandular density. MAMMOGRAM FINDINGS: A marker is placed at site of the focal left breast pain. No mammographic abnormalities appreciated associated with the marker. There are no dominant densities or suspicious microcalcifications in the left breast. SONOGRAM FINDINGS: Targeted left breast ultrasound was performed in the region of interest as indicated by the patient. This correlates as the 4 o'clock position 7 cm from the nipple. No sonographic abnormality is present. us Destiney Greenfield MD [facility] MAMMO PROCEDURES Final Result * Diagnostic Mammogram Left W Kervin (07/01/2025 11:11 AM CDT) Anatomical Region Laterality Modality Breast Left Mammography 07/01/2025 11:4 9 AM CDT Impressions 07/01/2025 11:49 AM CDT No mammographic or sonographic evidence of malignancy. OVERALL FINAL ASSESSMENT: BI-RADS Category 1: Negative. RECOMMENDATION: Focal left breast pain should be managed clinically. Annual screening mammography recommended. Electronically signed by: Oralia Haro M.D. Narrative 07/01/2025 11:49 AM CDT EXAMINATION: LEFT UNILATERAL DIGITAL DIAGNOSTIC MAMMOGRAM AND DIGITAL BREAST TOMOSYNTHESIS; LEFT BREAST SONOGRAM HISTORY: Focal left breast pain COMPARISON: 12/07/2024, 07/15/2023 TECHNIQUE: Full field digital mammographic views of the LEFT breast were performed, including computer aided detection (CAD) and digital breast tomosynthesis (DBT). Directed ultrasound evaluation of the LEFT breast was performed. BREAST PARENCHYMAL COMPOSITION: There are scattered areas of fibroglandular density. MAMMOGRAM FINDINGS: A marker is placed at site of the focal left breast pain. No mammographic abnormalities appreciated associated with the marker. There are no dominant densities or suspicious microcalcifications in the left breast. SONOGRAM FINDINGS: Targeted left breast ultrasound was performed in the region of interest as indicated by the patient. This correlates as the 4 o'clock position 7 cm from the nipple. No sonographic abnormality is present. us Destiney Greenfield MD [facility] MAMMO PROCEDURES Final Result * eGFR (06/25/2025 11:18 AM CDT) eGFR >90 >=60 mL/min/1. 73 m2 Comment: Interpretive Data Reference Interval Normal >/= 90 mL/min/1.73m2 Mildly decreased* 60 - 89 mL/min/1.73m2 Mildly to moderately decreased 45 - 59 mL/min/1.73m2 Moderately to severely decreased 30 - 44 mL/min/1.73m2 Severely decreased 15 - 29 mL/min/1.73m2 Kidney Failure < 15 mL/min/1.73m2 *Relative to young adult level Estimated glomerular filtration rate is determined by the 2020 CKD-EPI equation recommended by the National Kidney Foundation (A Unifying Approach to GFR Estimation: Recommendations of the NKF-ASK Task Force on Reassessing the Inclusion of Race in Diagnosing Kidney Disease, JASN 2020). The CKD-EPI equation should not be used for patients with unstable renal function and has not been validated in children and those over 70. Current interpretive data was last reviewed 2021. Blood 06/25/2025 11:1 8 AM CDT 06/25/2025 1:12 PM CDT us Destiney Greenfield MD LAB BLOOD ORDERABLES Final Result [facility] 1 [facility] [place] [address] * Differential, auto (06/25/2025 11:18 AM CDT) Neutrophil abs 2.19 1.50 - 6.50 K/cumm Imm gran abs 0.01 0.00 - 0.10 K/cumm [facility] ([place]) Lymphocyte abs 1.75 0.80 - 3.30 K/cumm [facility] ([place]) Monocyte abs 0.23 0.20 - 0.80 K/cumm [facility] ([place]) Eosinophil abs 0.08 0.00 - 0.50 K/cumm [facility] ([place]) Basophil abs 0.02 0.00 - 0.10 K/cumm [facility] ([place]) Neutrophil pct 51.1 % [facility] ([place] Comment: Interpretive Data Percent cell count reference ranges are not reported, since discordance with absolute values may lead to misinterpretation of CBC data. Current Interpretive Data was last revised on 2018. Imm gran pct 0.2 % [facility] ([place]) Comment: Interpretive Data Percent cell count reference ranges are not reported, since discordance with absolute values may lead to misinterpretation of CBC data. Current Interpretive Data was last revised on 2018. Lymphocyte pct 40.9 % [facility] ([place] Comment: Interpretive Data Percent cell count reference ranges are not reported, since discordance with absolute values may lead to misinterpretation of CBC data. Current Interpretive Data was last revised on 2018. Monocyte pct 5.4 % [facility] ([place] Comment: Interpretive Data Percent cell count reference ranges are not reported, since discordance with absolute values may lead to misinterpretation of CBC data. Current Interpretive Data was last revised on 2018. Eosinophil pct 1.9 % [facility] Comment: Interpretive Data Percent cell count reference ranges are not reported, since discordance with absolute values may lead to misinterpretation of CBC data. Current Interpretive Data was last revised on 2018. Basophil pct 0.5 % [facility] Comment: Interpretive Data Percent cell count reference ranges are not reported, since discordance with absolute values may lead to misinterpretation of CBC data. Current Interpretive Data was last revised on 2018. Blood 06/25/2025 11:1 8 AM CDT 06/25/2025 1:12 PM CDT Destiney Greenfield MD LAB BLOOD ORDERABLES Final Result [facility] ([place]) 1 [facility] Department of Laboratories [place], [place] [id number] * Thyroid Function [place] (06/25/2025 11:18 AM CDT) TSH 1.48 0.30 - 4.20 mcIUnit/mL [facility]) Blood 06/25/2025 11:1 8 AM CDT 06/25/2025 1:12 PM CDT Destiney Greenfield MD LAB BLOOD ORDERABLES Final Result [facility] ([place] 1 [facility] Department [place] [address] * CBC with auto differential (06/25/2025 11:18 AM CDT) WBC 4.28 3.80 - 9.90 K/cumm Hgb 14.6 11.9 - 15.5 g/dL [facility] Hct 44.5 35.6 - 45.5 % [facility] Plt 289 150 - 400 K/cumm [facility] MPV 11.5 9.1 - 12.3 fL [facility] RBC 5.16 3.90 - 5.20 M/cumm [facility] MCV 86.2 81.3 - 96.4 fL [facility] MCH 28.3 27.1 - 33.3 pg [facility] MCHC 32.8 32.3 - 35.7 g/dL [facility] RDW CV 12.1 11.1 - 14.9 % [facility] RDW SD 38.5 35.7 - 48.1 fL [facility] NRBC abs 0.00 0.00 - 0.01 K/cumm [facility] Blood 06/25/2025 11:1 8 AM CDT 06/25/2025 1:12 PM CDT us Destiney Greenfield MD LAB BLOOD ORDERABLES Final Result [facility] ([place] 1 [facility] [place] [address] * Hepatitis C antibody Blood (06/25/2025 11:18 AM CDT) Hep C Ab Nonreactive Nonreactive Comment: Interpretive Data Nonreactive: Antibodies to HCV not detected. Does NOT exclude the possibility of recent exposure to HCV. Equivocal: Equivocal for HCV antibodies. Supplemental molecular testing will be automatically performed to determine infection status in accordance with current CDC screening recommendations. Reactive: Positive for HCV antibodies. This may represent current or past HCV infection. Supplemental molecular testing will be automatically performed to determine current infection status in accordance with current CDC screening recommendations. Interpretive data was last revised on 2020. Testing performed by: [facility], [address] [place] [address]., [id number] Blood 06/25/2025 11:1 8 AM CDT 06/25/2025 3:37 PM CDT Destiney Greenfield MD LAB MICROBIOLOGY - [employer] NERAL ORDERABLES Final Result Performing Organization Address City/[facility]/ZIP Co de Phone Number [facility] ([place]) 1 [facility] [employer] [place] [address] * Hepatitis B core antibody, total Blood (06/25/2025 11:18 AM CDT) Hep B core IgG/IgM Nonreactive Nonreactive Comment:Testing performed by : [facility], [address] [place] [address], [id number] Blood 06/25/2025 11:1 8 AM CDT 06/25/2025 4:22 PM CDT Destiney Greenfield MD LAB MICROBIOLOGY - [employer] NERAL ORDERABLES Final Result [facility] ([place]) 1 [facility] [employer] [place] [address] * Hepatitis B surface antibody (immune status) Blood (06/25/2025 11:18 AM CDT) HBsAb (immune status) Nonreactive Comment: Interpretive Data Nonreactive: This result is consistent with a lack of immunity to Hepatitis B Virus when used in the setting of routine screening. Equivocal: The immune status of the individual should be further assessed, if appropriate, after consideration of clinical status, risk factors, and additional diagnostic information. Reactive: This result is consistent with immunity to Hepatitis B Virus when used in the setting of routine screening. Current interpretive data was last revised on 20. Testing performed by: [address], [address] Blood 06/25/2025 11:1 8 AM CDT 06/25/2025 3:37 PM CDT Destiney Greenfield MD LAB MICROBIOLOGY - GE NERAL ORDERABLES Final Result Performing Organization Address City/[facility]/ZIP Co de Phone Number [facility] ([place]) [address] [place] [phone] * Hepatitis B Surface Antigen Blood (06/25/2025 11:18 AM CDT) HepBsAg Nonreactive Nonreactive Comment:Testing performed by : [facility], [address] [place] [address], [id number] Blood 06/25/2025 11:1 8 AM CDT 06/25/2025 3:37 PM CDT Destiney Greenfield MD LAB MICROBIOLOGY - GE NERAL ORDERABLES Final Result Performing Organization Address City/[facility] Co de Phone Number [facility] [place] ([place]) [address] [place] [id number] * Hemoglobin A1c (06/25/2025 11:18 AM CDT) Hgb A1C 4.9 4.0 - 5.6 % [facility]) Estimated Average Glucose 94 mg/dL [facility] ([place]) Comment: The ADA recommends reporting an estimated Average Glucose (eAG) with all Hemoglobin A1c results using the equation derived from a study of 507 normal and diabetic adults. Minority populations were underrepresented and children were not included. (Diabetes Care 31:5496-0715, 2008). The eAG is not equivalent to a fasting glucose. Testing performed by: [facility], One [facility], [place], [address] Blood 06/25/2025 11:1 8 AM CDT 06/25/2025 1:12 PM CDT us Destiney Greenfield MD LAB BLOOD ORDERABLES Final Result [facility] ([place]) 1 [facility] Department [place] [address] * (ABNORMAL) Lipid panel (06/25/2025 11:18 AM CDT) Cholesterol 212(H) 30 - 199 mg/dL [facility] ([place]) Comment: Interpretive Data Ages < or = 19 years Acceptable: <170 mg/dL Borderline high: 170-199 mg/dL High: >or= 200 mg/dL Ages > or = 20 years Desirable: <200 mg/dL Borderline high: 200-239 mg/dL High: >or= 240 mg/dL Literature References: 1. Expert Panel on Integrated Guidelines for Cardiovascular Health and Risk Reduction in Children and Adolescents. Pediatrics 2011;128:S213 2. NCEP Expert Panel. Circulation 2004;110:227 Current Interpretive Data was last revised on 2018. Triglycerides 57 <=149 mg/dL [facility] ([place]) Comment: Interpretive Data Ages < or = 9 years Acceptable: <75 mg/dL Borderline high: 75-99 mg/dL High: >or= 100 mg/dL Ages 10 to 20 years Acceptable: <90 mg/dL Borderline high: 90-129 mg/dL High: >or= 130 mg/dL Ages > or = 20 years Desirable: <150 mg/dL Borderline high: 150-199 mg/dL High: 200-499 mg/dL Very high: >or= 499 mg/dL Literature References: 1. Expert Panel on Integrated Guidelines for Cardiovascular Health and Risk Reduction in Children and Adolescents. Pediatrics 2011;128:S213 2. NCEP Expert Panel. Circulation 2004;110:227 Current Interpretive Data was last revised on 2018. HDL 90 >=40 mg/dL [facility] ([place]) Comment: Interpretive Data Ages < or = 19 years Acceptable: >45 mg/dL Borderline low: 40-45 mg/dL Low: <40 mg/dL Ages > or = 20 years Desirable: >or= 60 mg/dL Low: <40 mg/dL Literature References: 1. Expert Panel on Integrated Guidelines for Cardiovascular Health and Risk Reduction in Children and Adolescents. Pediatrics 2011;128:S213 2. NCEP Expert Panel. Circulation 2004;110:227 Current Interpretive Data was last revised on 2018. LDL, calculated 112 <=129 mg/dL [facility] ([place]) Comment: Interpretive Data Ages < or = 19 years Acceptable: <110 mg/dL Borderline high: 110-129 mg/dL High: >or= 130 mg/dL Ages > or = 20 years Optimal: <100 mg/dL Near optimal: 100-129 mg/dL Borderline high: 130-159 mg/dL High: >160 mg/dL Calculated using the Lior LDL-C estimating equation. This equation was implemented on 2024. Prior to this date LDL-C was estimated using the Friedewald equation. Literature References: 1. Expert Panel on Integrated Guidelines for Cardiovascular Health and Risk Reduction in Children and Adolescents. Pediatrics 2011;128:S213 2. NCEP Expert Panel. Circulation 2004;110:227 3. Lior M et al. ERIKA Cardiol. 2020 March 21;5(5):540-548. doi: 10.1001/jamacardio.2020.0013 Current Interpretive Data was last revised on 2024. Testing performed by: [place], [address] Non-HDL Cholesterol 122 mg/dL [facility] ([place]) Comment: Interpretive Data Ages < or = 19 years Acceptable: <120 mg/dL Borderline high: 120-144 mg/dL High: >145 mg/dL Ages > or = 20 years When triglycerides are >200 mg/dL, Non-HDL cholesterol is a secondary target of therapy with treatment goals that are 30 mg/dL greater than the LDL cholesterol target. Literature References: 1. Expert Panel on Integrated Guidelines for Cardiovascular Health and Risk Reduction in Children and Adolescents. Pediatrics 2011;128:S213 2. NCEP Expert Panel. Circulation 2004;110:227 Current Interpretive Data was last revised on 2018. Testing performed by: [place], [address] Chol/HDL ratio 2 [facility] ([place]) Comment:Testing performed by : [facility], [facility], [place], [address] Blood 06/25/2025 11:1 8 AM CDT 06/25/2025 1:12 PM CDT us Destiney Greenfield MD LAB BLOOD ORDERABLES Final Result [facility] ([place]) 1 [facility] Department [place] [address] * (ABNORMAL) Comprehensive metabolic panel (06/25/2025 11:18 AM CDT) Sodium 142 135 - 145 mmol/L [facility] Potassium, pl 3.7 3.3 - 4.9 mmol/L [facility] Chloride 104 97 - 110 mmol/L [facility] CO2 25 22 - 32 mmol/L [facility]) Anion gap 13 2 - 15 mmol/L [facility] BUN 8 6 - 25 mg/dL [facility] Creatinine 0.72 0.60 - 1.10 mg/dL [facility] Glucose 79 70 - 199 mg/dL [facility] Comment: Interpretive Data Fasting glucose >/= 126 mg/dl is diagnostic for diabetes. Fasting is defined as no caloric intake for at least 8 hours. Fasting glucose between 100 mg/dl to 125 mg/dl is diagnostic of prediabetes. In a patient with classic symptoms of hyperglycemia or hyperglycemic crisis, a random glucose >/= 200 mg/dl is diagnostic for diabetes. In the absence of unequivocal hyperglycemia, results should be confirmed by repeat testing. The classification and Diagnosis of Diabetes Diabetes Care 202; 46: S19-S40. Current interpretive data was last revised 2022. Calcium 10.8(H) 8.5 - 10.3 mg/dL [facility] Bilirubin, total 0.6 0.1 - 1.2 mg/dL [facility] Protein, pl 7.9 6.5 - 8.5 g/dL [facility] Albumin 4.5 3.5 - 5.0 g/dL [facility] Alk phos 104 40 - 130 Units/L [facility] ALT 11 7 - 45 Units/L [facility] AST 27 10 - 45 Units/L [facility] Blood 06/25/2025 11:1 8 AM CDT 06/25/2025 1:12 PM CDT us Destiney Greenfield MD LAB BLOOD ORDERABLES Final Result [facility] ([place]) 1 [facility] [place] [address] * Screening Mammogram Bilateral W Kervin (12/07/2024) Anatomical Region Laterality Modality Breast Bilateral Mammography us Generic External Data Provider IMG MAMMO PROCEDU RES Final Result from Last 3 Months or Most Recently Relevant to Health Maintenance Insurance [facility] FEDERAL Advance Directives For more information, please contact: [phone] * Full Code (Latest Code Status on File) Date Activated Date Inactivated Comments 07/18/2025 8:59 AM 07/18/2025 4:27 PM * Full Code Date Activated Date Inactivated Comments 07/18/2025 8:59 AM 07/18/2025 8:59 AM Care Teams Hat Maker Relationship Specialty Start Date End Date Destiney Greenfield MD [address] [place] [address] DR KOVACS [address] [place] [id number] PCP - General Family Medicine 06/25/25
--- OUTSIDE RECORDS SUMMARY | 2025-07-23 19:38 | XMS_ITS | Encounter Summary ---
Author Organization [facility] Address [address] [place] [address] Care Team Providers Care Hospital Attendant Name Role Phone Destiney Greenfield MD Primary Care Provide r Reason for Visit * Reason Onset Date Comments Test Results 07/01/2025 Encounter Details Date Type Department Care Team (Late st Contact Info) Description 07/01/2025 Results Follow-Up [facility] Primary Care at [address] [place] [address] Destiney Greenfield MD [address] [place] [address] [address] [place] [address] Diagnostic Mammogram Left W Kervin Social History Tobacco Use Types Packs/Day Years Used Date Smoking Tobacco: Never Passive Smoke Exposure: Never Smokeless Tobacco: Never PHQ-2 Answer Date Recorded PHQ-2 Total Score (If total score is 3 or more points, staff should administer the PHQ-9) 0 06/25/2025 Comments No Sex and Gender Information Value Date Recorded Sex Assigned at Not on file Legal 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 Greenfield, please review message and advise. * Telephone Encounter - Destiney Greenfield MD - 07/02/2025 11:24 AM CDT You can take tylenol or ibuprofen as needed with food. I would recommend you follow up with your system engineer * Result Encounter Note - Alaina Charles - 07/02/2025 8:38 AM CDT Order placed. Centralized scheduling should contact pt to schedule. * Telephone Encounter - Lory Dailey MA - 07/02/2025 8:18 AM CDT Patient notified via my chart. documented in this encounter Plan of Treatment Not on file documented as of this encounter Visit Diagnoses Not on filedocumented in this encounter Care Teams Hospital Attendant Relationship Specialty Start Date End Date Destiney Greenfield MD [address] [place] [address] [place] [address] PCP - General Family Medicine 06/25/25 documented as of this encounter
--- NOTE | 2025-07-23 19:40 | ECG_ITS ---
Test Date: 2025-07-23 19:42:00 Measurements Intervals [place] Rate: 57 P: 55 ID: 130 QRS: 45 QRSD: 93 T: 56 QT: 410 QTc: 402 Interpretive Statements SINUS BRADYCARDIA WITH SHORT ID INTERVAL ABNORMAL ECG No previous ECG available for comparison Electronically Signed On 07-24-2025 11:08:45 CDT by Nikolas Beth M.D.
[2025-07-23 22:14] LABS: Hematocrit 42.9 % (37.0-47.0); Hemoglobin 14.2 g/dL (12.0-15.0); Immature Granulocyte Percent A 0.4 % (0-0.5); Lymphocytes Absolute Auto 0.77 K/mm3 (0.9-3.2); Mean Corpuscular HGB Conc 33.1 g/dl (32-36); Mean Corpuscular Hemoglobin 28.6 pg (26-34); Mean Corpuscular Volume 86.5 fl (80-100); Nucleated Red Blood Cells Absolute Auto 0.000 K/mm3 (0.0-0.012); Nucleated Red Blood Cells Perc 0.0 % (0.0-0.2); Platelet Count Result 246 k/mm3 (150-375); Red Blood Count 4.96 M/mm3 (4.2-5.4); White Blood Count 7.1 K/mm3 (4.5-10.0)
[2025-07-23 22:28] LABS: INR 1.0; Partial Thromboplastin Time 26.9 Seconds (22.3-36.8); Prothrombin Time 13.4 Seconds (11.1-14.7)
[2025-07-23 22:37] LABS: Alanine Aminotransferase 339 U/L (6-35); Albumin Level 4.4 g/dL (3.5-5.1); Alkaline Phosphatase 241 U/L (38-126); Anion Gap 9 mmol/L (4-12); Aspartate Amino Transferase 263 U/L (14-36); Bilirubin,Total 2.9 mg/dL (0.2-1.3); Blood Urea Nitrogen 7 mg/dL (7-17); Calcium 10.3 mg/dL (8.4-10.2); Carbon Dioxide 26 mmol/L (22-30); Chloride 103 mmol/L (98-107); Estimated CRCL calculation 83 ml/min; Estimated Glomerular Filt Rate > 60; Glucose 136 mg/dL (65-110); Lipase 51 U/L (23-300); Potassium 4.3 mmol/L (3.4-5.0); Sodium 138 mmol/L (137-145); Total Protein 8.2 g/dL (6.3-8.2)
[2025-07-23 22:55] LABS: Troponin I < 0.012 ng/mL (0.000-0.034)
--- NOTE | 2025-07-23 23:35 | ED.ABDPAIN ---
HPI - Abdominal Pain General Chief Complaint: Abdominal Pain <Cynthia Cade PA-C - Last Filed: 07/24/25 02:01> Stated Complaint: I can't breathe and my back is hurting <Cynthia Cade PA-C - Last Filed: 07/24/25 02:01> Time Seen by Provider: 07/23/25 23:04 <Cynthia Cade PA-C - Last Filed: 07/24/25 02:01> History of Present Illness HPI narrative: 60-year-old female with history of hypertension, MDD, RAMO presents to the ED with family at bedside for right-sided abdominal pain we radiates into her back intermittently for the past 4 days. Patient states last week she underwent to days of bowel prep for colonoscopy that was performed on 07/10/25 at [facility]. She states she had 2 polyps removed and is waiting on pathology but otherwise was told the colonoscopy was normal. She states the following day she developed right upper quadrant abdominal pain with associated nausea and vomiting after eating eggs. She states her symptoms resolved over the weekend and then resumed this morning when she woke up. She states she had barbecue for dinner last night and did not experience any pain. When she woke up her pain had returned. She states it is located in the right upper abdomen and radiates to the right back. She states her urine and stool has been ?neon orange?. She also reports diarrhea for the past 4 days. She cannot identify any aggravating or alleviating factors. She states she had corn flakes around 11:00 a.m. this morning and has not been able to tolerate p.o. since. She endorses a prior history of laparoscopic gastric banding. She denies dysuria, hematuria, history of kidney stones, melena or hematochezia. <FLAQUITO Silva Last Filed: 07/24/25 02:01> Related Data Allergies/Adverse Reactions: Allergies Allergy/AdvReac Type Severity Reaction Status Date / Time No Known Allergies Allergy Verified 12/09/21 15:57 <FLAQUITO Silva Last Filed: 07/24/25 02:01> Review of Systems Review of Systems: All systems reviewed & are unremarkable except as noted in HPI and below <Cynthia Cade PA-C - Last Filed: 07/24/25 02:01> PMFSH Past Medical History Medical History: Medical History Arthritis of both knees <Cynthia Cade PA-C - Last Filed: 07/24/25 02:01> Surgical History Surgical History: Surgical History Hx of laparoscopic gastric banding <Cynthia Cade PA-C - Last Filed: 07/24/25 02:01> Family History Family History: Family History Mother Hypertension Family history of elevated blood lipids Family history of diabetes mellitus in first degree relative Carcinoma of colon Grandparent Cerebrovascular accident Heart disease Cataracts, bilateral Father Heart disease Sibling Diabetes mellitus Hypertension <Cynthia Cade PA-C - Last Filed: 07/24/25 02:01> Social History Social History: Social History Social History: Smoking status: Never smoker Second hand tobacco smoke exposure: No Alcohol intake: current Alcohol use details: Ocassionally Substance use: never Substance use type: does not use Living arrangements: with family Occupation/Education: occupation Gender identity (if verbalized by the patient): Female Sexual Orientation (if Verbalized by the Patient): Straight or Heterosexual <Cynthia Cade PA-C - Last Filed: 07/24/25 02:01> Exam Narrative: GENERAL: Well-appearing, well-nourished, and in no acute distress. HEAD: Normocephalic, atraumatic. EYES: EOMI. ENT: Nares clear, no rhinorrhea or epistaxis. Mucous membranes moist. NECK: Supple. CHEST: Clear to auscultation. No respiratory distress. HEART: Regular rate and rhythm. No murmur heard. Normal peripheral pulses. ABDOMEN: Normoactive bowel sounds. Abdomen soft with tenderness in the right upper quadrant. No rebound or rigidity. No CVA tenderness EXTREMITIES: Normal range of motion. No edema. SKIN: Warm, dry, no rash. NEURO: No focal deficits. Alert and oriented x3 <Cynthia Cade PA-C - Last Filed: 07/24/25 02:01> Course FINANCIAL AID ADVISOR/PA Physician Supervision This visit was performed by both a physician and an APC. I performed all aspects of the MDM as documented. <Vance Harrington MD - Last Filed: 07/24/25 02:29> Vital Signs Vital signs: Vital Signs Temperature 97.3 F L 07/23/25 19:55 Pulse Rate 58 L 07/23/25 19:55 Respiratory Rate 18 07/23/25 19:55 Blood Pressure 107/69 07/23/25 19:55 Pulse Oximetry 97 07/23/25 19:55 Oxygen Delivery Room Air 07/23/25 19:55 Temperature 97.3 F L 07/23/25 19:55 Pulse Rate 60 07/24/25 01:01 Respiratory Rate 14 07/24/25 01:01 Blood Pressure 110/73 07/24/25 01:00 Pulse Oximetry 96 07/24/25 01:00 Oxygen Delivery Room Air 07/23/25 19:55 <Cynthia Cade PA-C - Last Filed: 07/24/25 02:01> Vital Signs Temperature 97.3 F L 07/23/25 19:55 Pulse Rate 58 L 07/23/25 19:55 Respiratory Rate 18 07/23/25 19:55 Blood Pressure 107/69 07/23/25 19:55 Pulse Oximetry 97 07/23/25 19:55 Oxygen Delivery Room Air 07/23/25 19:55 Temperature 97.3 F L 07/23/25 19:55 Pulse Rate 60 07/24/25 01:01 Respiratory Rate 14 07/24/25 01:01 Blood Pressure 110/73 07/24/25 01:00 Pulse Oximetry 96 07/24/25 01:00 Oxygen Delivery Room Air 07/23/25 19:55 <Vance Harrington MD - Last Filed: 07/24/25 02:29> MDM - Abdominal Pain MDM Narrative Medical decision making narrative: 60-year-old female presents emergency department for intermittent right-sided abdominal pain, nausea, vomiting and diarrhea for the past 4 days. See HPI for further history. Vitals are stable. Patient is afebrile and nontoxic appearing. Exam is significant for the above. EKG shows sinus bradycardia with a rate of 57 ppm, normal AK interval, normal QRS duration, normal QTC, no ischemic changes. Troponin is undetectable. Chest x-ray shows no acute cardiopulmonary findings. CBC shows no leukocytosis or anemia. Chemistries remarkable for acute transaminitis with an AST of 263, ALT of 339, alk-phos of 241 and bilirubin of 2.9. Lipase is within normal limits. Hepatitis a, B and C are negative. CT abdomen pelvis shows probable acute cholecystitis with recommendations for scintigraphy if ambiguous. Recommendations for MRI of the liver for indeterminate hypodensities. Patient updated on results. She was given IV fluids, Zofran and morphine with improvement but is still having persistent pain. Will provide Dilaudid. Presentation consistent with cholecystitis. Patient started on Zosyn and made NPO. Discussed with general surgeon, Dr. Gillis, who agrees to consult on admission. Discussed case with hospitalist FINANCIAL AID ADVISOR, Aida, who agrees to admission. <Cynthia Cade PA-C - Last Filed: 07/24/25 02:01> Lab Data Result diagrams: 07/23/25 22:05 07/23/25 22:05 <Cynthia Cade PA-C - Last Filed: 07/24/25 02:01> Labs: Lab Results 07/23/25 Range/Units 22:05 WBC 7.1 (4.5-10.0) K/mm3 RBC 4.96 (4.2-5.4) M/mm3 Hgb 14.2 (12.0-15.0) g/dL Hct 42.9 (37.0-47.0) % MCV 86.5 (80-100) fl MCH 28.6 (26-34) pg MCHC 33.1 (32-36) g/dl RDW 12.4 (11.5-14.5) % Plt Count 246 (150-375) k/mm3 MPV 10.8 H (7.4-10.4) fl Immature Gran % (Auto) 0.4 (0-0.5) % Neut % (Auto) 86.0 H (45.5-73.1) % Lymph % (Auto) 10.8 L (18.3-44.2) % Stokes % (Auto) 2.7 (2.6-8.5) % Eos % (Auto) 0.0 (0-4.4) % Baso % (Auto) 0.1 L (0.2-1.2) % Lymph # (Auto) 0.77 L (0.9-3.2) K/mm3 Stokes # (Auto) 0.2 (0.1-0.6) K/mm3 Eos # (Auto) 0.0 (0-0.3) K/mm3 Baso # (Auto) 0.0 (0.0-0.1) K/mm3 Abs Immat Gran (auto) 0.03 (0.00-0.031) K/mm3 Absolute Neuts (auto) 6.1 (1.3-6.7) K/mm3 Absolute Nucleated RBC 0.000 (0.0-0.012) K/mm3 Nucleated RBC % 0.0 (0.0-0.2) % PT 13.4 (11.1-14.7) Seconds INR 1.0 APTT 26.9 (22.3-36.8) Seconds Sodium 138 (137-145) mmol/L Potassium 4.3 (3.4-5.0) mmol/L Chloride 103 (98-107) mmol/L Carbon Dioxide 26 (22-30) mmol/L Anion Gap 9 (4-12) mmol/L BUN 7 (7-17) mg/dL Creatinine 0.65 L (0.7-1.0) mg/dL Estim Creat Clear Calc 83 ml/min Estimated GFR > 60 (59 - ) Glucose 136 H (65-110) mg/dL Calcium 10.3 H (8.4-10.2) mg/dL Total Bilirubin 2.9 H (0.2-1.3) mg/dL AST 263 H (14-36) U/L ALT 339 H (6-35) U/L Alkaline Phosphatase 241 H (38-126) U/L Troponin I < 0.012 (0.000-0.034) ng/mL Total Protein 8.2 (6.3-8.2) g/dL Albumin 4.4 (3.5-5.1) g/dL Lipase 51 (23-300) U/L Hepatitis A IgM Ab Negative (Negative) Hep Bs Antigen Negative (Negative) Hep B Core IgM Ab Negative (Negative) Hepatitis C Ab Screen Negative (Negative) <Cynthia Cade PA-C - Last Filed: 07/24/25 02:01> Lab Results 07/23/25 Range/Units 22:05 WBC 7.1 (4.5-10.0) K/mm3 RBC 4.96 (4.2-5.4) M/mm3 Hgb 14.2 (12.0-15.0) g/dL Hct 42.9 (37.0-47.0) % MCV 86.5 (80-100) fl MCH 28.6 (26-34) pg MCHC 33.1 (32-36) g/dl RDW 12.4 (11.5-14.5) % Plt Count 246 (150-375) k/mm3 MPV 10.8 H (7.4-10.4) fl Immature Gran % (Auto) 0.4 (0-0.5) % Neut % (Auto) 86.0 H (45.5-73.1) % Lymph % (Auto) 10.8 L (18.3-44.2) % Stokes % (Auto) 2.7 (2.6-8.5) % Eos % (Auto) 0.0 (0-4.4) % Baso % (Auto) 0.1 L (0.2-1.2) % Lymph # (Auto) 0.77 L (0.9-3.2) K/mm3 Stokes # (Auto) 0.2 (0.1-0.6) K/mm3 Eos # (Auto) 0.0 (0-0.3) K/mm3 Baso # (Auto) 0.0 (0.0-0.1) K/mm3 Abs Immat Gran (auto) 0.03 (0.00-0.031) K/mm3 Absolute Neuts (auto) 6.1 (1.3-6.7) K/mm3 Absolute Nucleated RBC 0.000 (0.0-0.012) K/mm3 Nucleated RBC % 0.0 (0.0-0.2) % PT 13.4 (11.1-14.7) Seconds INR 1.0 APTT 26.9 (22.3-36.8) Seconds Sodium 138 (137-145) mmol/L Potassium 4.3 (3.4-5.0) mmol/L Chloride 103 (98-107) mmol/L Carbon Dioxide 26 (22-30) mmol/L Anion Gap 9 (4-12) mmol/L BUN 7 (7-17) mg/dL Creatinine 0.65 L (0.7-1.0) mg/dL Estim Creat Clear Calc 83 ml/min Estimated GFR > 60 (59 - ) Glucose 136 H (65-110) mg/dL Calcium 10.3 H (8.4-10.2) mg/dL Total Bilirubin 2.9 H (0.2-1.3) mg/dL AST 263 H (14-36) U/L ALT 339 H (6-35) U/L Alkaline Phosphatase 241 H (38-126) U/L Troponin I < 0.012 (0.000-0.034) ng/mL Total Protein 8.2 (6.3-8.2) g/dL Albumin 4.4 (3.5-5.1) g/dL Lipase 51 (23-300) U/L Hepatitis A IgM Ab Negative (Negative) Hep Bs Antigen Negative (Negative) Hep B Core IgM Ab Negative (Negative) Hepatitis C Ab Screen Negative (Negative) <Vance Harrington MD - Last Filed: 07/24/25 02:29> Imaging Data Radiologist's impression: ITS Impressions Chest X-Ray 07/23/25 20:37 IMPRESSION: 1: NO ACUTE CARDIOPULMONARY DISEASE. <Cynthia Cade PA-C - Last Filed: 07/24/25 02:01> ITS Impressions Chest X-Ray 07/23/25 20:37 IMPRESSION: 1: NO ACUTE CARDIOPULMONARY DISEASE. <Vance Harrington MD - Last Filed: 07/24/25 02:29> Discharge Plan Discharge Clinical Impression: Acute cholecystitis <Cynthia Cade PA-C - Last Filed: 07/24/25 02:01> Patient Disposition: Still a Patient <Cynthia Cade PA-C - Last Filed: 07/24/25 02:01> Condition: Stable <FLAQUITO Silva Last Filed: 07/24/25 02:01> Instructions: Antibiotic Form <Cynthia Cade PA-C - Last Filed: 07/24/25 02:01> Patient Language: Ukrainian <Cynthia Cade PA-C - Last Filed: 07/24/25 02:01> Prescriptions: No Action sumatriptan succinate 50 mg tablet 50 mg PO ONCE PRN (Reason: Migraine Headache) Qty: 12 5RF hydroxyzine HCl 25 mg tablet 25 mg PO TID PRN (Reason: anxiety) Qty: 30 1RF phentermine 37.5 mg capsule 37.5 mg PO DAILY Qty: 30 2RF Rx Instructions: must administer 30 minutes before or 1-2 hours after breakfast hydrochlorothiazide 25 mg tablet 25 mg PO DAILY Qty: 90 1RF sertraline 50 mg tablet 50 mg PO DAILY Qty: 30 1RF Linzess 72 mcg capsule 72 mcg PO DAILY Qty: 30 3RF Ubrelvy 50 mg tablet 50 mg PO ONCE Qty: 14 0RF Rx Instructions: as a single dose; may repeat once in >=2 hours after first dose if needed metoprolol succinate 50 mg tablet extended release 24 hr See Rx Instructions .ROUTE .COMPLEX Qty: 90 0RF Dose Instruction: TAKE 1 TABLET BY MOUTH DAILY. INCREASE BLOOD PRESSURE Rx Instructions: TAKE 1 TABLET BY MOUTH DAILY. INCREASE BLOOD PRESSURE <Cynthia Cade PA-C - Last Filed: 07/24/25 02:01> Follow-up/Referrals: PHYSICIAN NOT ON STAFF,NONSTAFF [Primary Care Provider] <Cynthia Cade PA-C - Last Filed: 07/24/25 02:01>
[2025-07-23] MEDS: ONDANSETRON INJ 4 MG/2 ML VIAL IV PUSH (23:41)
[2025-07-23] MEDS: MORPHINE SULFATE (*CRX) 4 MG/ML INJ IV PUSH (23:41)
[2025-07-23] MEDS: SODIUM CHLORIDE 0.9% IV 1,000 ML 999 ML IV CONT (23:41)
--- OUTSIDE RECORDS SUMMARY | 2025-07-23 23:57 | XMS_ITS | Clinical Summary ---
Author Organization [facility] Building A Address [address] [place] [address] Care Team Providers Care Roller Machine Operator Name Role Phone Destiney Greenfield MD Primary [...] Description 07/18/2025 10:48 AM CDT Anesthesia Event [address] [address] Alf Watts MD 07/18/2025 10:00 AM CDT - 07/18/2025 10:30 AM CDT Surgery [address] [address] Isaias Grey MD COLON REMOVAL SNARE 07/18/2025 8:52 AM CDT - 07/18/2025 12:27 PM CDT Hospital Encounter [address] [address]Isaias Higgins MD Family history of colon cancer in mother; Family history of colon cancer; History of colonic polyps; Encounter for screening colonoscopy Discharge Disposition: Discharge to home or self care 07/02/2025 Orders Only [facility] Primary Care at [address] [place] [phone] Destiney Perez MD Screening mammogram for breast cancer (Primary Dx) 07/01/2025 10:53 AM CDT - 07/01/2025 11:59 PM CDT Hospital Encounter [address] [address] Breast pain, left Discharge Disposition: Discharge to home or self care 07/01/2025 10:53 AM CDT - 07/01/2025 11:59 PM CDT Hospital Encounter [address] [address] Breast pain, left Discharge Disposition: Discharge to home or self care 07/01/2025 Results Follow-Up [facility] Primary Care at [address] [phone] Destiney Perez MD Diagnostic Mammogram Left W Kervin 06/26/2025 Results Follow-Up [facility] Primary Care at [address] [phone] Destiney Perez MD Hepatitis B surface antibody (immune status) Blood, Hepatitis B Surface Antigen Blood, Thyroid Function [place], Additional followed-up results: 8 06/26/2025 Telephone [facility] Primary Care at [address] [phone] Destiney Perez MD Prior Auth (Linzess) 06/25/2025 11:15 AM CDT Lab [address] Need for hepatitis B screening test; Encounter for wellness examination; Need for hepatitis C screening test 06/25/2025 10:00 AM CDT Office Visit [facility] Primary Care at [address] [phone] Destiney Perez MD Encounter for wellness examination [...] completion of form with patient 06/25/2025 Telephone [facility] Gastroenterology at [address] [place] [address] Isaias Grey MD 06/25/2025 Orders Only [facility] Primary Care at [address] [place] [address] Destiney Perez MD Breast pain, [...] on file 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 Gender Identity Female 06/19/2025 8:22 AM CDT [...] gastric) 07/18/2025 11:22 AM CDT Narrative PATHOLOGY [facility] - 07/23/2025 1:03 PM CDT EPIC results best viewed via link to PDF [facility] Department of Pathology [address] [place] [address] Note to Patients: This report may contain [...] Final Report Patient Name: BROWN PENA Address: [address] [place] [address] Gender: F : 1965 (Age: 60) Service: Gastro Location: [facility] Hospital #: [id number] Patient Type: [facility] Taken: 07/18/2025 Received: 07/19/2025 Accessioned: 07/19/2025 [...] determined by the Surgical Pathology Department at [facility] as part of an ongoing clinical quality rn program and in compliance with federally mandated [...] characteristics determined by the Surgical Pathology Department [facility]. It has not been cleared or approved by the U. S. Food and Drug Administration. Note for decalcified specimens: This assay has not been validated on decalcified tissues. Results should be interpreted with caution given the possibility of false negativity on decalcified specimens us Isaias Grey MD LAB PATHOLOGY ORDERABLES Final R esult PATHOLOGY [facility] [address] [id number] * Colonoscopy (07/18/2025 9:39 AM CDT) Anatomical Region Laterality Modality Other Narrative Procedure Note Isaias Grey MD - 07/18/2025 9:39 AM CDT [facility] Patient Name: Georgiavell Ye Procedure Date: 07/18/2025 9:39 AM Date of : 1965 Admit Type: Outpatient Age: 60 Gender: Female Attending MD: Isaias Grey M.D., Room: [facility] ENDOSCOPY ROOM 2 Note Status: Finalized Patient [...] proposed procedure were verified by the physician,the land acquisition specialist and the lead maintenance technician in the endoscopysuite. Mental Status Examination: [...] passed under directvision. The Pediatric Colonoscope PCF-H190L [id number] was introduced through the anus and advanced [...] 9:39 AM Procedure Code(s): --- Professional --- 21285, Colonoscopy, flexible; with removal of tumor(s), polyp(s), or other lesion(s) by snare technique --- Technical --- 70167, Colonoscopy, flexible; with removal of tumor(s), polyp(s), [...] congenital malformations of intestine CPT copyright 2022 [employer]. All rights reserved. The codes documented in this report are preliminary and upon accounts payable representative reviewmay be revised to meet current compliance requirements. Recognized by the [employer] [place] for promoting quality [...] abnormality is present. us Destiney Greenfield MD [facility] MAMMO PROCEDURES Final Result * Diagnostic Mammogram [...] abnormality is present. us Destiney Greenfield MD [facility] MAMMO PROCEDURES Final Result * eGFR (06/25/2025 [...] Greenfield MD LAB BLOOD ORDERABLES Final Result [facility] ([place] [address] [facility] [place] [address] * Differential, auto (06/25/2025 11:18 AM CDT) Neutrophil abs 2.19 1.50 - 6.50 K/cumm Imm gran abs 0.01 0.00 - 0.10 K/cumm [facility] ([place]) Lymphocyte abs 1.75 0.80 - 3.30 K/cumm [facility] Monocyte abs 0.23 0.20 - 0.80 K/cumm [facility] ([place]) Eosinophil abs 0.08 0.00 - 0.50 K/cumm [facility] ([place]) Basophil abs 0.02 0.00 - 0.10 K/cumm [facility] ([place]) Neutrophil pct 51.1 % [facility] ([place] Comment: Interpretive Data Percent cell count reference [...] ORDERABLES Final Result [facility] ([place]) [address] [facility] Department of Laboratories [place], [place] [id number] * Thyroid Function [place] (06/25/2025 11:18 AM CDT) TSH 1.48 0.30 - 4.20 mcIUnit/mL [facility] ([place]) Blood 06/25/2025 11:1 8 AM CDT 06/25/2025 1:12 PM CDT Destiney Greenfield MD LAB BLOOD ORDERABLES Final Result [facility] ([place] [place] [address] * CBC with auto differential (06/25/2025 11:18 [...] NRBC abs 0.00 0.00 - 0.01 K/cumm [facility] Blood 06/25/2025 11:1 8 AM CDT 06/25/2025 1:12 PM CDT us Destiney Greenfield MD LAB BLOOD ORDERABLES Final Result [facility] ([place]) [facility] [place] [address] * Hepatitis C antibody Blood (06/25/2025 11:18 [...] last revised on 2020. Testing performed by: [facility], [address] [place] [address]., [address] Blood 06/25/2025 11:1 8 AM CDT 06/25/2025 3:37 PM CDT Destiney Greefnield MD LAB MICROBIOLOGY - [facility] NERAL ORDERABLES Final Result Performing Organization Address City/[facility]/ZIP Co de Phone Number [facility] ([place]) [address] [facility] [place] [address] * Hepatitis B core antibody, total Blood (06/25/2025 11:18 AM CDT) Hep B core IgG/IgM Nonreactive Nonreactive Comment:Testing performed by : [facility], [address] [place] [address], [address] Blood 06/25/2025 11:1 8 AM CDT 06/25/2025 4:22 PM CDT Destiney Greenfield MD LAB MICROBIOLOGY - [facility] NERAL ORDERABLES Final Result [facility] ([place]) [address] [facility] [email or web address] [address] * Hepatitis B surface antibody (immune status) [...] last revised on 20. Testing performed by: [address], [address] Blood 06/25/2025 11:1 8 AM CDT 06/25/2025 3:37 PM CDT Destiney Greenfield MD LAB MICROBIOLOGY - GE NERAL ORDERABLES Final Result Performing Organization Address City/[facility]/ZIP Co de Phone Number [facility] ([place]) [address] [place] [address] * Hepatitis B Surface Antigen Blood (06/25/2025 11:18 AM CDT) HepBsAg Nonreactive Nonreactive Comment:Testing performed by : [facility], [address] [place] [address], [address] Blood 06/25/2025 11:1 8 AM CDT 06/25/2025 3:37 PM CDT Destiney Greenfield MD LAB MICROBIOLOGY - GE NERAL ORDERABLES Final Result Performing Organization Address City/[facility] Co de Phone Number [facility] [address] [place] [address] * Hemoglobin A1c (06/25/2025 11:18 AM CDT) [...] and children were not included. (Diabetes Care 31:[id number], 2008). The eAG is not equivalent to a fasting glucose. Testing performed by: [facility], [facility], [place], [address] Blood 06/25/2025 11:1 8 AM CDT 06/25/2025 1:12 PM CDT us Destiney Greenfield MD LAB BLOOD ORDERABLES Final Result [facility] ([place]) [address] [facility] [place] [address] * (ABNORMAL) Lipid panel (06/25/2025 11:18 AM [...] last revised on 2024. Testing performed by: [place], [address] Non-HDL Cholesterol 122 mg/dL [facility] ([place]) [...] last revised on 2018. Testing performed by: [place], [address] Chol/HDL ratio 2 [facility]) Comment:Testing performed by : [facility], [facility], [place], [address] Blood 06/25/2025 11:1 8 AM CDT 06/25/2025 1:12 PM CDT us Destiney Greenfield MD LAB BLOOD ORDERABLES Final Result [facility] ([place]) [address] [facility] [place] [address] * (ABNORMAL) Comprehensive metabolic panel (06/25/2025 11:18 AM CDT) Sodium 142 135 - 145 mmol/L [facility] ([place]) Potassium, pl 3.7 3.3 - 4.9 mmol/L [facility]) Chloride 104 97 - 110 mmol/L [facility]) CO2 25 22 - 32 mmol/L [facility]) Anion gap 13 2 - 15 mmol/L [facility]) BUN 8 6 - 25 mg/dL [facility] Creatinine 0.72 0.60 - [...] LAB BLOOD ORDERABLES Final Result [facility] ([place]) [address] [facility] [place] [address] * Screening Mammogram Bilateral W Kervin (12/07/2024) Anatomical Region Laterality Modality Breast Bilateral Mammography us Generic External Data Provider IMG MAMMO PROCEDU RES Final Result from Last 3 Months or Most Recently Relevant to Health Maintenance Insurance [facility] FEDERAL Advance Directives For more information, please contact: [phone] * Full Code (Latest Code Status on File) Date Activated Date Inactivated Comments 07/18/2025 8:59 AM 07/18/2025 4:27 PM * Full Code Date Activated Date Inactivated Comments 07/18/2025 8:59 AM 07/18/2025 8:59 AM Care Teams Roller Machine Operator Relationship Specialty Start Date End Date Destiney Greenfield MD [address] [place] [address] DR KOVACS [address] [place] [id number] PCP - General Family Medicine 06/25/25
--- OUTSIDE RECORDS SUMMARY | 2025-07-23 23:57 | XMS_ITS | Encounter Summary ---
Author Organization [facility] Address [address] [place] [address] Care Team Providers Care Inspector [employer] Name Role Phone Destiney Greenfield MD Primary Care Provide r Reason for Visit * Reason Onset Date Comments Test Results 07/01/2025 Encounter Details Date Type Department Care Team (Late st Contact Info) Description 07/01/2025 Results Follow-Up [facility] Primary Care at [address] [place] [address] Destiney Greenfield MD [address] [place] [address] [address] [place] [address] Diagnostic Mammogram Left W Kervin [...] on file 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 Centralized scheduling should contact pt to schedule. * Telephone Encounter - Lory Dailey MA - 07/02/2025 8:18 AM CDT Patient notified via my chart. documented in this encounter Plan of Treatment Not on file documented as of this encounter Visit Diagnoses Not on filedocumented in this encounter Care Teams Inspector Canvas Products Relationship Specialty Start Date End Date Destiney Greenfield MD [address] [place] [address] [place] [address] PCP - General Family Medicine 06/25/25 documented as of this encounter
[2025-07-24] VITALS (18 sets, daily range): BP systolic 104–141; BP diastolic 61–89; PULSE 54–71; RESP 12–18; TEMP 35.8–36.4; O2SAT 96–100; BMI 30.6
[2025-07-24 00:47] LABS: Hepatitis B Surface Antigen Negative (Negative)
[2025-07-24 00:53] LABS: HAV RESULT Negative (Negative); Hepatitis B Core IgM Result Negative (Negative)
[2025-07-24] MEDS: HYDROmorphone HCL INJ (*CRX) 1 MG/ML SYR 0.5 MG IV PUSH ×3 (02:07→08:45)
[2025-07-24] MEDS: PIPERACILLIN/TAZOBACTAM SOD 3.375 GM in SODIUM CHLORIDE 0.9% IV 50 ML 100 ML IVPB ×4 (02:48→21:16)
[2025-07-24] MEDS: SODIUM CHLORIDE 0.9% IV 1,000 ML 125 ML IV CONT ×2 (03:08→17:40)
--- NOTE | 2025-07-24 04:05 | ADMGEN ---
This patient, Maggie Belcher, was admitted to 3 [facility] Surg Room 319-01. Patient/family oriented to hospital policies and general routines including ID bracelet, bed and alarms, visiting hours, pain management, procedures, bathroom and other care routines, personal items, smoking policy, room service/diet, and visiting hours. Information on how to activate the Rapid Response Team has been discussed. Patient/Family are encouraged to report perceived risks to care and to ask questions if they do not understand what they are told or what they should do.
[2025-07-24 08:08] LABS: Hematocrit 36.8 % (37.0-47.0); Hemoglobin 12.2 g/dL (12.0-15.0); Mean Corpuscular HGB Conc 33.2 g/dl (32-36); Mean Corpuscular Hemoglobin 28.8 pg (26-34); Mean Corpuscular Volume 87.0 fl (80-100); Platelet Count Result 236 k/mm3 (150-375); Red Blood Count 4.23 M/mm3 (4.2-5.4); White Blood Count 4.7 K/mm3 (4.5-10.0)
[2025-07-24 08:32] LABS: Alanine Aminotransferase 454 U/L (6-35); Albumin Level 3.5 g/dL (3.5-5.1); Alkaline Phosphatase 256 U/L (38-126); Anion Gap 5 mmol/L (4-12); Aspartate Amino Transferase 616 U/L (14-36); Bilirubin,Total 2.9 mg/dL (0.2-1.3); Blood Urea Nitrogen 5 mg/dL (7-17); Calcium 9.7 mg/dL (8.4-10.2); Carbon Dioxide 30 mmol/L (22-30); Chloride 105 mmol/L (98-107); Estimated CRCL calculation 78 ml/min; Estimated Glomerular Filt Rate > 60; Glucose 100 mg/dL (65-110); Potassium 3.5 mmol/L (3.4-5.0); Sodium 140 mmol/L (137-145); Total Protein 6.4 g/dL (6.3-8.2)
--- NOTE | 2025-07-24 10:14 | PM.CNGS ---
Assessment and Plan Assessment and plan (1) Acute cholecystitis: Code(s): K81.0 - Acute cholecystitis Status: Acute Assessment and Plan: Patient is a 60-year-old female with history of hypertension who presented to the ED last night with complaints of abdominal pain radiating to her back. She notes associated nausea and vomiting. Symptoms 1st started roughly 6 days ago when patient had a colonoscopy in [address] [facility] afterwards. Pain subsided over the weekend, but returned yesterday after eating a bowl of cereal. She also endorses diarrhea. CT scan in the ED demonstrated findings concerning for acute cholecystitis. An ultrasound was also performed and demonstrated cholelithiasis with prominent edematous wall thickening of the gallbladder. No dilation of the gallbladder. Negative Delacruz sign. Lab significant for total bilirubin of 2.9. LFTs moderately elevated. Normal WBC count. On physical exam, patient is diffusely tender across lower abdomen. No right upper quadrant pain. She does endorse pain to her back. Laparoscopic cholecystectomy planned for this afternoon. The surgery was discussed with the patient in detail as well as risks, benefits, alternatives. All questions were answered. Patient agreeable to surgery. Keep patient NPO until this time. Continue IV Zosyn. Plan Discussed patient's case and plan of care with Dr. Gillis. History of Present Illness Consult details Consult date: 07/24/25 Reason for consult: other (Acute cholecystitis) Requesting physician: Cynthia Cade PA-C Narrative: Patient is a 60-year-old female with history of hypertension who we have been asked to see in surgical consultation for acute cholecystitis. Patient presented to the ED late last night with complaints of abdominal pain radiating to her back. Patient states that she 1st noted the pain 6 days ago. She had a colonoscopy done and then ate [employer] afterwards. The abdominal pain started shortly after. She also had an episode of emesis. The follow ing morning she developed diarrhea and notes neon orange urine. She did state that she was given Azo for her colonoscopy. Throughout the weekend she felt better and did not experience any pain, but symptoms returned yesterday. She had eaten a bowl of cereal, which she states usually sits well in her stomach. She notes the pain to be diffusely across her lower abdomen and radiate to her back in between her shoulder blades. She had nausea and vomiting throughout the night. She also endorsed diarrhea. Previous abdominal surgery includes laparoscopic gastric banding. Patient states that she has had abdominal pain similar to this in the past, but none severe enough to prompt her to present to the hospital. Upon admission to the ED, WBC normal. Elevated LFTs. Bilirubin elevated at 1.3. Lipase normal. Ct was obtained and demonstrated findings concerning for acute cholecystitis. Multiple subcentimeter hypodensities seen in the liver, incompletely evaluated on current exam. RUQ ultrasound demonstrated cholelithiasis with prominent edematous wall thickening of the gallbladder which could be seen with acute cholecystitis. However, no dilation of the gallbladder and no sonographic Delacruz sign. Patient rates abdominal pain at a 5 after administration of Dilaudid. [facility] Past Medical History Medical History Arthritis of both knees Surgical History Surgical History Hx of laparoscopic gastric banding Family History Family History Mother Hypertension Family history of elevated blood lipids Family history of diabetes mellitus in first degree relative Carcinoma of colon Grandparent Cerebrovascular accident Heart disease Cataracts, bilateral Father Heart disease Sibling Diabetes mellitus Hypertension Social History Social History Social History: Smoking status: Never smoker Second hand tobacco smoke exposure: No Alcohol intake: current Alcohol use details: Ocassionally Substance use: never Substance use type: does not use Lack of Transportation: No Lack of Food: Never True Current Housing: I Have Housing Concerned About Future Housing: No Difficulty Paying Gas/Electric Bills: No Difficulty Paying for Meds: No Currently Unemployed: No Education: Decline to Answer Difficulty w/ Childcare or Family Care: No Living arrangements: with family Occupation/Education: occupation Gender identity (if verbalized by the patient): Female Sexual Orientation (if Verbalized by the Patient): Straight or Heterosexual Spiritual care concerns: No Meds Home Medications and Allergies Home Medications ?Medication ?Instructions ?Recorded ?Confirmed ?Type sumatriptan succinate 50 mg tablet 50 mg PO ONCE PRN Migraine 12/08/20 07/24/25 Rx Headache #12 tabs linaclotide 72 mcg capsule 72 mcg PO DAILY #30 caps 01/13/22 07/24/25 Rx (Linzess) omeprazole 20 mg capsule,delayed 20 mg PO DAILY 07/24/25 07/24/25 History release Allergies Allergy/AdvReac Type Severity Reaction Status Date / Time No Known Allergies Allergy Verified 07/24/25 12:22 Vital Signs Vital Signs - 24 hr 07/23/25 19:55 07/23/25 22:06 07/23/25 22:25 Temperature 97.3 F L Pulse Rate 58 L 57 L 55 L Respiratory Rate 18 16 16 Blood Pressure 107/69 126/72 Pulse Oximetry 97 Oxygen Delivery Room Air 07/23/25 22:58 07/23/25 23:00 07/23/25 23:01 Temperature Pulse Rate 58 L 57 L 57 L Respiratory Rate 19 17 18 Blood Pressure 116/73 Pulse Oximetry Oxygen Delivery 07/23/25 23:15 07/23/25 23:16 07/23/25 23:17 Temperature Pulse Rate 62 62 62 Respiratory Rate 18 15 15 Blood Pressure 111/65 Pulse Oximetry 98 Oxygen Delivery 07/23/25 23:31 07/24/25 00:03 07/24/25 00:21 Temperature Pulse Rate 64 63 60 Respiratory Rate 17 16 15 Blood Pressure 112/73 Pulse Oximetry 95 Oxygen Delivery 07/24/25 01:00 07/24/25 01:01 07/24/25 03:52 Temperature Pulse Rate 62 60 Respiratory Rate 18 14 Blood Pressure 110/73 Pulse Oximetry 96 Oxygen Delivery Room Air 07/24/25 04:03 07/24/25 06:00 Temperature 97.4 F L 97.3 F L Pulse Rate 60 60 Respiratory Rate 18 18 Blood Pressure 105/70 104/63 Pulse Oximetry 98 98 Oxygen Delivery Exam Const: General: comfortable and no acute distress Eyes: General: appearance normal, both eyes and all related structures Neck: Neck: supple Resp: Effort & Inspection: normal respiratory effort Cardio: Rate: regular rate GI: Inspection: non-distended GI Palp: Yes Soft to palpation, Yes Tenderness to palpation present (GI) (Diffusely across lower abdomen.) and No Guarding due to palpation present (GI) Skin: General skin exam: normal color and no rashes or lesions noted Neuro: Speech: normal speech Sensory Exam: normal sensation Extrem: General: normal to inspection Psych: Mental Status: mental status grossly normal Results Labs 07/24/25 07:58 07/24/25 07:58 Labs: Abnormal lab results 07/23/25 07/24/25 Range/Units 22:05 07:58 Hct 36.8 L (37.0-47.0) % MPV 10.8 H 10.6 H (7.4-10.4) fl Neut % (Auto) 86.0 H (45.5-73.1) % Lymph % (Auto) 10.8 L (18.3-44.2) % Baso % (Auto) 0.1 L (0.2-1.2) % Lymph # (Auto) 0.77 L (0.9-3.2) K/mm3 BUN 5 L (7-17) mg/dL Creatinine 0.65 L (0.7-1.0) mg/dL Glucose 136 H (65-110) mg/dL Calcium 10.3 H (8.4-10.2) mg/dL Total Bilirubin 2.9 H 2.9 H (0.2-1.3) mg/dL Direct Bilirubin 1.3 H (0-0.3) mg/dL AST 263 H 616 H (14-36) U/L ALT 339 H 454 H (6-35) U/L Alkaline Phosphatase 241 H 256 H (38-126) U/L Diabetes panel 07/23/25 07/24/25 Range/Units 22:05 07:58 Sodium 138 140 (137-145) mmol/L Potassium 4.3 3.5 (3.4-5.0) mmol/L Chloride 103 105 (98-107) mmol/L Carbon Dioxide 26 30 (22-30) mmol/L BUN 7 5 L (7-17) mg/dL Creatinine 0.65 L 0.70 (0.7-1.0) mg/dL Glucose 136 H 100 (65-110) mg/dL Calcium 10.3 H 9.7 (8.4-10.2) mg/dL AST 263 H 616 H (14-36) U/L ALT 339 H 454 H (6-35) U/L Alkaline Phosphatase 241 H 256 H (38-126) U/L Total Protein 8.2 6.4 (6.3-8.2) g/dL Albumin 4.4 3.5 (3.5-5.1) g/dL Calcium panel 07/23/25 07/24/25 Range/Units 22:05 07:58 Calcium 10.3 H 9.7 (8.4-10.2) mg/dL Albumin 4.4 3.5 (3.5-5.1) g/dL Pituitary panel 07/23/25 07/24/25 Range/Units 22:05 07:58 Sodium 138 140 (137-145) mmol/L Potassium 4.3 3.5 (3.4-5.0) mmol/L Chloride 103 105 (98-107) mmol/L Carbon Dioxide 26 30 (22-30) mmol/L BUN 7 5 L (7-17) mg/dL Creatinine 0.65 L 0.70 (0.7-1.0) mg/dL Glucose 136 H 100 (65-110) mg/dL Calcium 10.3 H 9.7 (8.4-10.2) mg/dL Adrenal panel 07/23/25 07/24/25 Range/Units 22:05 07:58 Sodium 138 140 (137-145) mmol/L Potassium 4.3 3.5 (3.4-5.0) mmol/L Chloride 103 105 (98-107) mmol/L Carbon Dioxide 26 30 (22-30) mmol/L BUN 7 5 L (7-17) mg/dL Creatinine 0.65 L 0.70 (0.7-1.0) mg/dL Glucose 136 H 100 (65-110) mg/dL Calcium 10.3 H 9.7 (8.4-10.2) mg/dL Total Bilirubin 2.9 H 2.9 H (0.2-1.3) mg/dL AST 263 H 616 H (14-36) U/L ALT 339 H 454 H (6-35) U/L Alkaline Phosphatase 241 H 256 H (38-126) U/L Total Protein 8.2 6.4 (6.3-8.2) g/dL Albumin 4.4 3.5 (3.5-5.1) g/dL All other labs normal.
--- NOTE | 2025-07-24 12:42 | WPDANESEPPF ---
Anes - Initial Pre Proc Eval Procedure: Operation Date: 07/24/25 14:00 Proposed Procedures p Laparoscopic Cholecystectomy with Intra Operative Cholangiogram - Kwasi Gillis DO Date/Time: 07/24/25 12:42 Surgeon: Linda Cotto MD Pre Op Diagnosis: Acute cholecystitis Patient Data Age: 60 Gender: F Height: 1.63 m Weight: 81 kg Last Vital Signs Temp 36.3 C L 07/24/25 06:00 Pulse 60 07/24/25 06:00 Resp 18 07/24/25 06:00 BP 104/63 07/24/25 06:00 Pulse Ox 98 07/24/25 06:00 O2 Del Method Room Air 07/24/25 03:52 Allergies Allergy/AdvReac Type Severity Reaction Status Date / Time No Known Allergies Allergy Verified 07/24/25 12:22 Home Medications ?Medication ?Instructions ?Recorded ?Confirmed ?Type sumatriptan succinate 50 mg tablet 50 mg PO ONCE PRN Migraine 12/08/20 07/24/25 Rx Headache #12 tabs linaclotide 72 mcg capsule 72 mcg PO DAILY #30 caps 01/13/22 07/24/25 Rx (Linzess) omeprazole 20 mg capsule,delayed 20 mg PO DAILY 07/24/25 07/24/25 History release Laboratory Tests 07/23/25 07/24/25 22:05 07:58 WBC 7.1 K/mm3 4.7 K/mm3 (4.5-10.0) (4.5-10.0) RBC 4.96 M/mm3 4.23 M/mm3 (4.2-5.4) (4.2-5.4) Hgb 14.2 g/dL 12.2 g/dL (12.0-15.0) (12.0-15.0) Hct 42.9 % 36.8 L % (37.0-47.0) (37.0-47.0) MCV 86.5 fl 87.0 fl (80-100) (80-100) MCH 28.6 pg 28.8 pg (26-34) (26-34) MCHC 33.1 g/dl 33.2 g/dl (32-36) (32-36) RDW 12.4 % 12.3 % (11.5-14.5) (11.5-14.5) Plt Count 246 k/mm3 236 k/mm3 (150-375) (150-375) MPV 10.8 H fl 10.6 H fl (7.4-10.4) (7.4-10.4) Immature Gran % (Auto) 0.4 % (0-0.5) Neut % (Auto) 86.0 H % (45.5-73.1) Lymph % (Auto) 10.8 L % (18.3-44.2) [place] % (Auto) 2.7 % (2.6-8.5) Eos % (Auto) 0.0 % (0-4.4) Baso % (Auto) 0.1 L % (0.2-1.2) Lymph # (Auto) 0.77 L K/mm3 (0.9-3.2) [place] # (Auto) 0.2 K/mm3 (0.1-0.6) Eos # (Auto) 0.0 K/mm3 (0-0.3) Baso # (Auto) 0.0 K/mm3 (0.0-0.1) Abs Immat Gran (auto) 0.03 K/mm3 (0.00-0.031) Absolute Neuts (auto) 6.1 K/mm3 (1.3-6.7) Absolute Nucleated RBC 0.000 K/mm3 (0.0-0.012) Nucleated RBC % 0.0 % (0.0-0.2) PT 13.4 Seconds (11.1-14.7) INR 1.0 APTT 26.9 Seconds (22.3-36.8) Sodium 138 mmol/L 140 mmol/L (137-145) (137-145) Potassium 4.3 mmol/L 3.5 mmol/L (3.4-5.0) (3.4-5.0) Chloride 103 mmol/L 105 mmol/L (98-107) (98-107) Carbon Dioxide 26 mmol/L 30 mmol/L (22-30) (22-30) Anion Gap 9 mmol/L 5 mmol/L (4-12) (4-12) BUN 7 mg/dL 5 L mg/dL (7-17) (7-17) Creatinine 0.65 L mg/dL 0.70 mg/dL (0.7-1.0) (0.7-1.0) Estim Creat Clear Calc 83 ml/min 78 ml/min Estimated GFR > 60 > 60 (59 - ) (59 - ) Glucose 136 H mg/dL 100 mg/dL (65-110) (65-110) Calcium 10.3 H mg/dL 9.7 mg/dL (8.4-10.2) (8.4-10.2) Total Bilirubin 2.9 H mg/dL 2.9 H mg/dL (0.2-1.3) (0.2-1.3) Direct Bilirubin 1.3 H mg/dL (0-0.3) AST 263 H U/L 616 H U/L (14-36) (14-36) ALT 339 H U/L 454 H U/L (6-35) (6-35) Alkaline Phosphatase 241 H U/L 256 H U/L (38-126) (38-126) Troponin I < 0.012 ng/mL (0.000-0.034) Total Protein 8.2 g/dL 6.4 g/dL (6.3-8.2) (6.3-8.2) Albumin 4.4 g/dL 3.5 g/dL (3.5-5.1) (3.5-5.1) Lipase 51 U/L (23-300) Hepatitis A IgM Ab Negative (Negative) Hep Bs Antigen Negative (Negative) Hep B Core IgM Ab Negative (Negative) Hepatitis C Ab Screen Negative (Negative) Patient hx anesthesia problems: none Family hx anesthesia problems: none Results Review: All pre-operative results and documents have been reviewed as part of the pre-operative evaluation. [facility] Past Medical History Medical History (Updated 07/24/25 @ 12:50 by Adair Delarosa DO) GERD (gastroesophageal reflux disease) RAMO (generalized anxiety disorder) Essential (primary) hypertension Arthritis of both knees Surgical History Surgical History (Updated 07/24/25 @ 12:50 by Adair Delarosa DO) History of sleeve gastrectomy Hx of laparoscopic gastric banding Family History Family History Mother Hypertension Family history of elevated blood lipids Family history of diabetes mellitus in first degree relative Carcinoma of colon Grandparent Cerebrovascular accident Heart disease Cataracts, bilateral Father Heart disease Sibling Diabetes mellitus Hypertension Social History Social History Social History: Smoking status: Never smoker Second hand tobacco smoke exposure: No Alcohol intake: current Alcohol use details: Ocassionally Substance use: never Substance use type: does not use Lack of Transportation: No Lack of Food: Never True Current Housing: I Have Housing Concerned About Future Housing: No Difficulty Paying Gas/Electric Bills: No Difficulty Paying for Meds: No Currently Unemployed: No Education: Decline to Answer Difficulty w/ Childcare or Family Care: No Living arrangements: with family Occupation/Education: occupation Gender identity (if verbalized by the patient): Female Sexual Orientation (if Verbalized by the Patient): Straight or Heterosexual Spiritual care concerns: No Anes - Eval Final PreProcedure Day of Procedure 07/24/25 12:42 Patient weight: obese Heart: regular rate and rhythm Lungs: clear to auscultation Airway: Mallampati scale class II Neurological: alert and oriented Last oral intake: >/= 8 hours ASA classification: III Emergent: no Anesthetic plan: proceed Anesthesia type and monitoring: general ETT and standard monitoring Results Review: All pre-operative results and documents have been reviewed as part of the pre-operative evaluation. Informed Consent: The patient's anesthetic plan and its attendant risks and benefits were discussed with the patient/family/POA. Questions were solicited and answers provided to the satisfaction of the patient/family/POA.
[2025-07-24] MEDS: LACTATED RINGERS 1,000 ML 30 ML IV CONT ×2 (12:45→14:19)
--- NOTE | 2025-07-24 12:48 | WPDHPUPDATE1 ---
History and Physical Update Update Date/Time: 07/24/25 12:48 History and Physical has been reviewed, including an updated exam of the patient. There are NO changes in the patient's condition. Risks, benefits, and alternatives have been discussed and questions answered. Patient agrees to proceed with procedure.
--- NOTE | 2025-07-24 12:48 | P.PNGS_ITS ---
Progress Note: A&P Assessment and Plan (1) Acute cholecystitis: Code(s): K81.0 - Acute cholecystitis Status: Acute Assessment and Plan: I reviewed the CT and discussed the findings with the patient. U/s has been performed but has not been read by radiologist yet. The images demonstrate cholecystitis and cholelithiasis. CBD appears slightly dilated. I have recommended laparoscopic cholecystectomy with intraoperative cholangiogram, possible open. I discussed the procedure, risks, benefits, and alternatives. Questions answered. (2) Elevated liver enzymes: Code(s): R74.8 - Abnormal levels of other serum enzymes Status: Acute Subjective Subjective Date/Time Seen: 07/24/25 12:48 Interval history: I provided a substantive portion of the care of this patient. I personally performed the history and exam and have discussed the plan with Suzanne Gonsalves PA-C. Patient seen and examined independently. I agree with consultation note by Suzanne Gonsalves PA-C. This is a 60 yo woman who presented to the ED with upper abdominal pain. She had symptoms initally start 5 days ago, but then symptoms improved. She then had recurrent constant and worsening pain y esterday. Imaging showed evidence of acute cholecystitis. Exam GI: Inspection: non-distended GI Palp: Yes Tenderness to palpation present (GI) (epigastric) Auscultation: normal bowel sounds Objective Data Vital Signs Vital Signs: Vital Signs - 24 hr 07/23/25 19:55 07/23/25 22:06 07/23/25 22:25 Temperature 97.3 F L Pulse Rate 58 L 57 L 55 L Respiratory Rate 18 16 16 Blood Pressure 107/69 126/72 Pulse Oximetry 97 Oxygen Delivery Room Air 07/23/25 22:58 07/23/25 23:00 07/23/25 23:01 Temperature Pulse Rate 58 L 57 L 57 L Respiratory Rate 19 17 18 Blood Pressure 116/73 Pulse Oximetry Oxygen Delivery 07/23/25 23:15 07/23/25 23:16 07/23/25 23:17 Temperature Pulse Rate 62 62 62 Respiratory Rate 18 15 15 Blood Pressure 111/65 Pulse Oximetry 98 Oxygen Delivery 07/23/25 23:31 07/24/25 00:03 07/24/25 00:21 Temperature Pulse Rate 64 63 60 Respiratory Rate 17 16 15 Blood Pressure 112/73 Pulse Oximetry 95 Oxygen Delivery 07/24/25 01:00 07/24/25 01:01 07/24/25 03:52 Temperature Pulse Rate 62 60 Respiratory Rate 18 14 Blood Pressure 110/73 Pulse Oximetry 96 Oxygen Delivery Room Air 07/24/25 04:03 07/24/25 06:00 Temperature 97.4 F L 97.3 F L Pulse Rate 60 60 Respiratory Rate 18 18 Blood Pressure 105/70 104/63 Pulse Oximetry 98 98 Oxygen Delivery Intake/Output Intake/Output: Intake & Output 07/21/25 07/22/25 07/23/25 07/24/25 23:59 23:59 23:59 23:59 Intake Total 1050 Balance 1050 Meds/Results Medications: Active Medications Generic Name Dose Route Start Last Admin Trade Name Freq PRN Reason Stop Dose Admin Hydromorphone HCl 0.5 mg 07/24/25 02:00 07/24/25 08:45 Hydromorphone Hcl Inj (*Crx) 1 Mg/Ml Syr IV PUSH 0.5 mg Q4H PRN Administration Pain Rated 7-10 Sodium Chloride 1,000 mls @ 125 mls/hr 07/24/25 02:00 07/24/25 03:08 Normal Saline Iv IV CONT 125 mls/hr .Q8H LUAN Administration Piperacillin Sod/Tazobactam 50 mls @ 100 mls/hr 07/24/25 09:00 07/24/25 08:45 Sod 3.375 gm/ Sodium Chloride IVPB 100 mls/hr Q6H LUAN Administration Ondansetron HCl 4 mg 07/24/25 02:00 Ondansetron Inj 4 Mg/2 Ml Vial IV PUSH Q4H PRN Nausea Radiology Results: ITS Impressions Chest X-Ray 07/23/25 20:37 IMPRESSION: 1: NO ACUTE CARDIOPULMONARY DISEASE. Abdomen/Pelvis CT 07/24/25 08:37 IMPRESSION: 1. Findings concerning for acute cholecystitis. Ultrasound can be performed for further evaluation, as clinically indicated. 2. Multiple subcentimeter hypodensities are seen in the liver, incompletely evaluated on current examination. Nonemergent outpatient MRI is recommended for further evaluation, as clinically indicated. Labs Labs: Laboratory Results - last 24 hr 07/23/25 07/24/25 22:05 07:58 WBC 7.1 4.7 RBC 4.96 4.23 Hgb 14.2 12.2 Hct 42.9 36.8 L MCV 86.5 87.0 MCH 28.6 28.8 MCHC 33.1 33.2 RDW 12.4 12.3 Plt Count 246 236 MPV 10.8 H 10.6 H Immature Gran % (Auto) 0.4 Neut % (Auto) 86.0 H Lymph % (Auto) 10.8 L [place] % (Auto) 2.7 Eos % (Auto) 0.0 Baso % (Auto) 0.1 L Lymph # (Auto) 0.77 L [place] # (Auto) 0.2 Eos # (Auto) 0.0 Baso # (Auto) 0.0 Abs Immat Gran (auto) 0.03 Absolute Neuts (auto) 6.1 Absolute Nucleated RBC 0.000 Nucleated RBC % 0.0 PT 13.4 INR 1.0 APTT 26.9 Sodium 138 140 Potassium 4.3 3.5 Chloride 103 105 Carbon Dioxide 26 30 Anion Gap 9 5 BUN 7 5 L Creatinine 0.65 L 0.70 Estim Creat Clear Calc 83 78 Estimated GFR > 60 > 60 Glucose 136 H 100 Calcium 10.3 H 9.7 Total Bilirubin 2.9 H 2.9 H Direct Bilirubin 1.3 H AST 263 H 616 H ALT 339 H 454 H Alkaline Phosphatase 241 H 256 H Troponin I < 0.012 Total Protein 8.2 6.4 Albumin 4.4 3.5 Lipase 51 Hepatitis A IgM Ab Negative Hep Bs Antigen Negative Hep B Core IgM Ab Negative Hepatitis C Ab Screen Negative
[2025-07-24] MEDS: BUPIVACAINE/EPINEPHRINE 0.5% 50 ML VIAL 30 ML INFILTRATE (13:28)
--- NOTE | 2025-07-24 13:38 | PM.IMHP ---
H&P: HPI History of Present Illness Date/Time: 07/24/25 13:38 Chief Complaint: abdominal pain Narrative: 60-year-old female with history of hypertension, MDD, RAMO presents to the ED with right-sided abdominal pain which radiates into her back intermittently for the past 4 days. Patient states last week she underwent to days of bowel prep for colonoscopy that was performed on 07/10/25 at [facility]. She states she had 2 polyps removed and is waiting on pathology but otherwise was told the colonoscopy was normal. She states the following day she developed right upper quadrant abdominal pain with associated nausea and vomiting after eating eggs. She states her symptoms resolved over the weekend and then resumed this morning when she woke up. She states she had barbecue for dinner last night and did not experience any pain. When she woke up her pain had returned. She states it is located in the right upper abdomen and radiates to the right back. Review of Systems Review of Systems: All systems reviewed & are unremarkable except as noted in HPI and below PMFSH Past Medical History Medical History GERD (gastroesophageal reflux disease) RAMO (generalized anxiety disorder) Essential (primary) hypertension Arthritis of both knees Surgical History Surgical History (Updated 07/24/25 @ 12:50 by Adair Delarosa DO) History of sleeve gastrectomy Hx of laparoscopic gastric banding Family History Family History Mother Hypertension Family history of elevated blood lipids Family history of diabetes mellitus in first degree relative Carcinoma of colon Grandparent Cerebrovascular accident Heart disease Cataracts, bilateral Father Heart disease Sibling Diabetes mellitus Hypertension Social History Social History Social History: Smoking status: Never smoker Second hand tobacco smoke exposure: No Alcohol intake: current Alcohol use details: Ocassionally Substance use: never Substance use type: does not use Lack of Transportation: No Lack of Food: Never True Current Housing: I Have Housing Concerned About Future Housing: No Difficulty Paying Gas/Electric Bills: No Difficulty Paying for Meds: No Currently Unemployed: No Education: Decline to Answer Difficulty w/ Childcare or Family Care: No Living arrangements: with family Occupation/Education: occupation Gender identity (if verbalized by the patient): Female Sexual Orientation (if Verbalized by the Patient): Straight or Heterosexual Spiritual care concerns: No Meds Home Medications and Allergies Home Medications ?Medication ?Instructions ?Recorded ?Confirmed ?Type sumatriptan succinate 50 mg tablet 50 mg PO ONCE PRN Migraine 12/08/20 07/24/25 Rx Headache #12 tabs linaclotide 72 mcg capsule 72 mcg PO DAILY #30 caps 01/13/22 07/24/25 Rx (Linzess) omeprazole 20 mg capsule,delayed 20 mg PO DAILY 07/24/25 07/24/25 History release Allergies Allergy/AdvReac Type Severity Reaction Status Date / Time No Known Allergies Allergy Verified 07/24/25 12:22 Vital Signs Vital Signs - 24 hr 07/23/25 19:55 07/23/25 22:06 07/23/25 22:25 Temperature 97.3 F L Pulse Rate 58 L 57 L 55 L Respiratory Rate 18 16 16 Blood Pressure 107/69 126/72 Pulse Oximetry 97 Oxygen Delivery Room Air 07/23/25 22:58 07/23/25 23:00 07/23/25 23:01 Temperature Pulse Rate 58 L 57 L 57 L Respiratory Rate 19 17 18 Blood Pressure 116/73 Pulse Oximetry Oxygen Delivery 07/23/25 23:15 07/23/25 23:16 07/23/25 23:17 Temperature Pulse Rate 62 62 62 Respiratory Rate 18 15 15 Blood Pressure 111/65 Pulse Oximetry 98 Oxygen Delivery 07/23/25 23:31 07/24/25 00:03 07/24/25 00:21 Temperature Pulse Rate 64 63 60 Respiratory Rate 17 16 15 Blood Pressure 112/73 Pulse Oximetry 95 Oxygen Delivery 07/24/25 01:00 07/24/25 01:01 07/24/25 03:52 Temperature Pulse Rate 62 60 Respiratory Rate 18 14 Blood Pressure 110/73 Pulse Oximetry 96 Oxygen Delivery Room Air 07/24/25 04:03 07/24/25 06:00 07/24/25 08:00 Temperature 97.4 F L 97.3 F L Pulse Rate 60 60 Respiratory Rate 18 18 Blood Pressure 105/70 104/63 Pulse Oximetry 98 98 Oxygen Delivery Room Air 07/24/25 13:03 Temperature 97.6 F Pulse Rate 55 L Respiratory Rate 16 Blood Pressure 115/82 Pulse Oximetry 100 Oxygen Delivery Room Air Exam Narrative: GENERAL: Well-appearing, well-nourished, and in no acute distress. HEAD: Normocephalic, atraumatic. EYES: EOMI. ENT: Nares clear, no rhinorrhea or epistaxis. Mucous membranes moist. NECK: Supple. CHEST: Clear to auscultation. No respiratory distress. HEART: Regular rate and rhythm. No murmur heard. Normal peripheral pulses. ABDOMEN: Normoactive bowel sounds. Abdomen soft with tenderness in the right upper quadrant. No rebound or rigidity. No CVA tenderness EXTREMITIES: Normal range of motion. No edema. SKIN: Warm, dry, no rash. NEURO: No focal deficits. Alert and oriented x3 H&P: Results Labs Labs: Short CBC 07/23/25 07/24/25 Range/Units 22:05 07:58 WBC 7.1 4.7 (4.5-10.0) K/mm3 Hgb 14.2 12.2 (12.0-15.0) g/dL Hct 42.9 36.8 L (37.0-47.0) % Plt Count 246 236 (150-375) k/mm3 BMP 07/23/25 07/24/25 22:05 07:58 Sodium 138 140 Potassium 4.3 3.5 Chloride 103 105 Carbon Dioxide 26 30 BUN 7 5 L Creatinine 0.65 L 0.70 Glucose 136 H 100 Calcium 10.3 H 9.7 Cardiac Enzymes 07/23/25 Range/Units 22:05 Troponin I < 0.012 (0.000-0.034) ng/mL Liver Function 07/23/25 07/24/25 Range/Units 22:05 07:58 Total Bilirubin 2.9 H 2.9 H (0.2-1.3) mg/dL Direct Bilirubin 1.3 H (0-0.3) mg/dL AST 263 H 616 H (14-36) U/L ALT 339 H 454 H (6-35) U/L Alkaline Phosphatase 241 H 256 H (38-126) U/L Albumin 4.4 3.5 (3.5-5.1) g/dL Assessment and Plan Assessment and plan (1) Essential (primary) hypertension: Code(s): I10 - Essential (primary) hypertension Status: Acute (2) Acute cholecystitis: Code(s): K81.0 - Acute cholecystitis Status: Acute Plan 60-year-old female with history of hypertension, MDD, RAMO presents to the ED with family at bedside for right-sided abdominal pain. Abdominal CT showed findings concerning for acute cholecystitis. 1. Acute cholecystitis: Admit to General Medicine NPO IV fluids Pain control Obtain blood culture Will start on Zosyn Surgery has been consulted 2. Hold all home medications due to NPO status 3. DVT prophylaxis: SCDs 4. Code status: Full 5. Disposition: Admit to General Medicine Quality VTE Prophylaxis VTE prophylaxis: mechanical ordered Hospitalist [facility] Advance Care Plan I have confirmed that the patient's Advanced Care Plan is present, code status is documented, or surrogate decision maker is listed in patient medical record.: Yes Medication Reconciliation I have utilized all available resources to obtain, update and review the patients current medications (includes all prescriptions, OTC, herbals, cannabis, and nutritional supplements).: Yes
--- NOTE | 2025-07-24 14:00 | S_PTH ---
PATIENT: Maggie Belcher LOC: [id number] U#:[id number] AGE/SX: 60/F ROOM: 319 RE07/24/[address]: Linda Cotto MD : [id number] BED: 01 DIS: 07/28/2025 SPEC #: [id number] RECD: 07/25/25 09:02 STATUS: MOY DYER #: [id number] MALIHA: 07/24/25 14:[address]: Kwasi Gillis DEPT: [facility] Surgical RECD BY: Rina Aguilar ENTERED: 07/25/25 09:02 SP TYPE: Surgical OTHR DR: Linda Cotto MD PHYSICIAN NOT ON STAFF Daniel Woods MD Tissues: A - Gallbladder Procedures: Hematoxylin and Eosin Stain Gross and Microscopic Level 3
--- NOTE | 2025-07-24 14:21 | P.OP_ITS ---
Procedure Note - Detailed Date of Procedure 07/24/25 Pre-op Diagnosis Acute cholecystitis, elevated liver enzymes Post-op Diagnosis Other (Choledocholithiasis with acute cholecystitis) Procedure Performed Laparoscopic cholecystectomy with intraoperative cholangiogram Surgeon Kwasi Gillis DO Anesthesia General and Local (0.5% bupivacaine) Indications This is a 60-year-old woman who presented to the emergency department upper abdominal pain that started yesterday. She had also had symptoms about 5 days ago that had resolved until yesterday. She was now having constant abdominal pain. Her white blood count was normal but liver enzymes were significantly elevated. CT showed evidence of acute cholecystitis. She was admitted for further treatment. Discussions were made with the patient about treatment options and decision was made to proceed with laparoscopic cholecystectomy with intraoperative cholangiogram. Findings Laparoscopic cholecystectomy with cholangiogram was performed. The patient had a few adhesions near her liver and falciform ligament from her prior lap band and gastric sleeve procedures. The right upper quadrant appeared free of adhesions. The gallbladder appeared dilated and elongated and very edematous. The cystic duct appeared slightly dilated as well. Intraoperative cholangiogram was obtained using Omnipaque contrast and fluoroscopy. The images were sent to Radiology for interpretation. I was unable to identify contrast making it to the duodenum and the common duct appeared dilated suspicious for a common bile duct obstruction. There were several small stones within the gallbladder. The gallbladder was removed and sent to the lab for pathology. Description of Procedure Procedure as well as risks, benefits, and alternatives were discussed with patient. Written consent was obtained and placed in chart prior to procedure. The patient was brought back to surgical suite. Patient was placed in supine position on operating table. Time-out was done to confirm patient and procedure. Patient was then intubated by the anesthesia department. Abdomen was prepped and draped in sterile fashion using chlorhexidine prep. 0.5% bupivacaine with epinephrine was infiltrated at each site of incision. A 5 millimeter incision was made near the umbilicus, and a 5 millimeter Optiview trocar was advanced through the abdominal layers under direct visualization. Once inside the abdominal cavity, carbon dioxide was insufflated to create a pneumoperitoneum. The camera was inserted and the abdomen was inspected. No immediate abnormalities were identified. The patient was placed in reverse Trendelenburg position and rotated slightly to the left. An 11 millimeter incision was made in the subxiphoid region, and an 11 millimeter trocar was inserted under direct visualization. Two 5 millimeter incisions were made in the right upper quadrant, and two 5 millimeter trocars were inserted under direct visualization. The gallbladder was identified and grasped at the fundus and retracted superiorly. It was then grasped at the infundibulum retracted laterally. Careful dissection around the neck of the gallbladder was performed using blunt dissection with a [place] grasper and hook electrocautery. The cystic duct was identified, and a window was created behind it. The cystic artery was also identified and a window was created behind it. The critical view of safety was identified, visualizing the cystic duct running directly into the neck of the gallbladder, and the cystic artery running directly into the wall of the gallbladder. A 5 millimeter clip tool maintenance technician was then used to place 2 clips proximally and 1 clip distally on the cystic artery. It was then transected using endoscopic scissors. The Pena clamp was placed across the neck of the gallbladder and the Pena cholangiocatheter was advanced into the distal neck of the gallbladder. The catheter flushed with saline with ease. The patient was flattened out in bed and fluoroscopy was used to obtain an intraoperative cholangiogram using Omnipaque contrast. The images were sent to the radiologist for interpretation. The catheter was then removed and the patient was placed back in reverse Trendelenburg position. A 5 mm Endoclip tool maintenance technician was used to place 2 clips proximally 1 clip distally on the cystic duct. It was then transected using endoscopic scissors. Once safely away from the jhonatan hepatitis, the gallbladder was dissected free from the liver bed using hook electrocautery. Hemostasis was achieved along the way. The gallbladder was removed completely and then removed through the subxiphoid port. The liver bed was then inspected. Hemostasis appeared adequate, and our clips appeared secure. The area was gently irrigated with sterile saline. No other abno rmalities were seen. The patient was flattened out in bed, and 1 final inspection was made around the abdominal cavity. The subxiphoid port was removed, and a Marcelo Valerio cone was used to approximate the fascia with an 0-Vicryl simple interrupted suture. The remaining ports were then removed under direct visualization, the camera was removed, and the pneumoperitoneum was released. The skin of the incisions was approximated using 4-0 Monocryl subcuticular sutures. Exofin glue was applied on top. The patient was then awakened from anesthesia, extubated, and transferred to recovery. Estimated Blood Loss 10 Pathology Yes (Gallbladder) Complications No immediate complications Condition Stable Disposition Floor [facility] Billing Surgery - Charge Forward: Surgery Billing
[2025-07-24] MEDS: HYDROcodone/acetaminophen (*CRX) 7.5-325 MG TABLET 1 TAB PO ×2 (17:40→21:16)
[2025-07-24] MEDS: MORPHINE SULFATE (*CRX) 4 MG/ML INJ IV PUSH (21:24)
[2025-07-25 01:31] VITALS: BP 112/72; PULSE 60; RESP 18; TEMP 36.3; O2SAT 100
[2025-07-25] MEDS: MORPHINE SULFATE (*CRX) 4 MG/ML INJ IV PUSH ×3 (01:55→22:52)
[2025-07-25] MEDS: SODIUM CHLORIDE 0.9% IV 1,000 ML 125 ML IV CONT ×3 (01:58→22:49)
[2025-07-25] MEDS: PIPERACILLIN/TAZOBACTAM SOD 3.375 GM in SODIUM CHLORIDE 0.9% IV 50 ML 100 ML IVPB ×4 (02:01→21:28)
[2025-07-25 05:31] VITALS: BP 120/76; PULSE 60; RESP 18; TEMP 36.4; O2SAT 98
[2025-07-25 05:59] LABS: Hematocrit 34.1 % (37.0-47.0); Hemoglobin 11.1 g/dL (12.0-15.0); Mean Corpuscular HGB Conc 32.6 g/dl (32-36); Mean Corpuscular Hemoglobin 28.7 pg (26-34); Mean Corpuscular Volume 88.1 fl (80-100); Platelet Count Result 192 k/mm3 (150-375); Red Blood Count 3.87 M/mm3 (4.2-5.4); White Blood Count 4.5 K/mm3 (4.5-10.0)
[2025-07-25 06:21] LABS: Alanine Aminotransferase 600 U/L (6-35); Albumin Level 3.2 g/dL (3.5-5.1); Alkaline Phosphatase 263 U/L (38-126); Anion Gap 4 mmol/L (4-12); Aspartate Amino Transferase 611 U/L (14-36); Bilirubin,Total 1.5 mg/dL (0.2-1.3); Blood Urea Nitrogen 4 mg/dL (7-17); Calcium 9.8 mg/dL (8.4-10.2); Carbon Dioxide 26 mmol/L (22-30); Chloride 107 mmol/L (98-107); Estimated CRCL calculation 75 ml/min; Estimated Glomerular Filt Rate > 60; Glucose 99 mg/dL (65-110); Potassium 3.4 mmol/L (3.4-5.0); Sodium 137 mmol/L (137-145); Total Protein 5.8 g/dL (6.3-8.2)
--- NOTE | 2025-07-25 09:52 | P.PNGS_ITS ---
Progress Note: A&P Assessment and Plan (1) Acute cholecystitis: Code(s): K81.0 - Acute cholecystitis Status: Acute Assessment and Plan: * POD 1 s/p laparoscopic cholecystectomy with IOC. Patient tolerated the pr ocedure well. Complains of some incisional pain. Cholangiogram demonstrated filling defects in the distal common duct, suspicious for stones versus gas. There is a partial obstruction to flow of contrast into the duodenum. The bile ducts are dilated. * Bilirubin 1.5. LFTs still elevated. Normal WBC. * GI has been consulted. We will await their recommendations. Patient will likely need ERCP. (2) Elevated liver enzymes: Code(s): R74.8 - Abnormal levels of other serum enzymes Status: Acute Plan Discussed patient's case and plan of care with Dr. Gillis. Subjective Subjective Date/Time Seen: 07/25/25 09:52 Post Op day: 1 (Laparoscopic cholecystectomy with intraoperative cholangiogram) Patient reports: no new complaints, feels better, pain is less, no flatus and no bowel movement Interval history: Patient is doing well today. Pain is tolerable with IV morphine. Notes some incisional pain. Exam Const: General: comfortable and no acute distress Resp: Effort & Inspection: normal respiratory effort Cardio: Rate: regular rate GI: Inspection: non-distended GI Palp: Yes Soft to palpation and Yes Tenderness to palpation present (GI) (diffuse abdominal pain surrounding incisions) : General: Yes bladder normal to palpation Psych: Mental Status: mental status grossly normal Objective Data Vital Signs Vital Signs: Vital Signs - 24 hr 07/24/25 13:03 07/24/25 14:19 07/24/25 14:35 Temperature 97.6 F 97.6 F Pulse Rate 55 L 71 55 L Respiratory Rate 16 16 12 Blood Pressure 115/82 141/84 H 140/80 Pulse Oximetry 100 100 100 Oxygen Delivery Room Air Simple Face Mask Simple Face Mask Oxygen Flow Rate 8 8 07/24/25 14:42 07/24/25 14:50 07/24/25 15:05 Temperature Pulse Rate 60 54 L Respiratory Rate 16 12 Blood Pressure 136/80 140/79 Pulse Oximetry 100 97 Oxygen Delivery Room Air Room Air Room Air Oxygen Flow Rate 07/24/25 15:20 07/24/25 15:40 07/24/25 15:46 Temperature 96.5 F L Pulse Rate 55 L 57 L 60 Respiratory Rate 12 14 18 Blood Pressure 127/76 136/89 125/71 Pulse Oximetry 97 98 100 Oxygen Delivery Room Air Room Air Oxygen Flow Rate 07/24/25 16:01 07/24/25 16:31 07/24/25 17:31 Temperature 96.5 F L 96.5 F L Pulse Rate 64 65 66 Respiratory Rate 18 18 18 Blood Pressure 117/83 110/75 104/61 Pulse Oximetry 100 100 100 Oxygen Delivery Oxygen Flow Rate 07/24/25 21:31 07/25/25 01:31 07/25/25 05:31 Temperature 97.0 F L 97.4 F L 97.6 F Pulse Rate 61 60 60 Respiratory Rate 18 18 18 Blood Pressure 125/83 112/72 120/76 Pulse Oximetry 99 100 98 Oxygen Delivery Oxygen Flow Rate Intake/Output Intake/Output: Intake & Output 07/22/25 07/23/25 07/24/25 07/25/25 23:59 23:59 23:59 23:59 Intake Total 2740 1000 Balance 2740 1000 Meds/Results Medications: Active Medications Generic Name Dose Route Start Last Admin Trade Name Freq PRN Reason Stop Dose Admin Hydrocodone Bitart/Acetaminophen 1 tab 07/24/25 15:46 Hydrocodone/Acetaminophen (*Crx) 5-325 Mg Tablet PO Q4H PRN Pain Rated 4-6 Hydrocodone Bitart/Acetaminophen 1 tab 07/24/25 15:46 07/24/25 21:16 Hydrocodone/Acetaminophen (*Crx) 7.5-325 Mg Tablet PO 1 tab Q4H PRN Administration Pain Rated 7-10 Sodium Chloride 1,000 mls @ 125 mls/hr 07/24/25 02:00 07/25/25 01:58 Normal Saline Iv IV CONT 125 mls/hr .Q8H LUAN Administration Piperacillin Sod/Tazobactam 50 mls @ 100 mls/hr 07/24/25 09:00 07/25/25 02:01 Sod 3.375 gm/ Sodium Chloride IVPB 100 mls/hr Q6H LUAN Administration Morphine Sulfate 2 mg 07/24/25 15:46 Morphine Sulfate (*Crx) 2 Mg/Ml Inj IV PUSH Q2H PRN Breakthrough Pain Rated 4-6 or NPO Morphine Sulfate 4 mg 07/24/25 15:46 07/25/25 01:55 Morphine Sulfate (*Crx) 4 Mg/Ml Inj IV PUSH 4 mg Q2H PRN Administration Breakthrough Pain Rated 7-10 or NPO Naloxone HCl 0.1 mg 07/24/25 15:46 Naloxone Hcl 0.4 Mg/Ml Vial IV PUSH Q2M PRN Opiate Reversal Ondansetron HCl 4 mg 07/24/25 02:00 Ondansetron Inj 4 Mg/2 Ml Vial IV PUSH Q4H PRN Nausea Radiology Results: ITS Impressions Chest X-Ray 07/23/25 20:37 IMPRESSION: 1: NO ACUTE CARDIOPULMONARY DISEASE. Abdomen/Pelvis CT 07/24/25 08:37 IMPRESSION: 1. Findings concerning for acute cholecystitis. Ultrasound can be performed for further evaluation, as clinically indicated. 2. Multiple subcentimeter hypodensities are seen in the liver, incompletely evaluated on current examination. Nonemergent outpatient MRI is recommended for further evaluation, as clinically indicated. Upper Quadrant Ultrasound 07/24/25 12:37 IMPRESSION: 1. Cholelithiasis with prominent edematous wall thickening of the gallbladder which could be seen with acute cholecystitis. There is however no dilation of the gallbladder as typically seen with acute cholecystitis and the sonographic Delacruz sign was negative albeit with reduced sensitivity and differential would include chronic cholecystitis and hepatitis rather liver disease or heart, heart failure, renal failure or other generalized edema forming states. If clinically indicated could consider HIDA scan for further evaluation. Cholangiogram,Operative 07/24/25 14:17 IMPRESSION: 1. Filling defects distal common duct, suspicious for stones versus gas. There is partial obstruction to flow of contrast into the duodenum. The bile ducts are dilated. Labs Labs: Laboratory Results - last 24 hr 07/25/25 05:32 WBC 4.5 RBC 3.87 L Hgb 11.1 L Hct 34.1 L MCV 88.1 MCH 28.7 MCHC 32.6 RDW 12.5 Plt Count 192 MPV 10.9 H Sodium 137 Potassium 3.4 Chloride 107 Carbon Dioxide 26 Anion Gap 4 BUN 4 L Creatinine 0.73 Estim Creat Clear Calc 75 Estimated GFR > 60 Glucose 99 Calcium 9.8 Total Bilirubin 1.5 H AST 611 H ALT 600 H Alkaline Phosphatase 263 H Total Protein 5.8 L Albumin 3.2 L
--- NOTE | 2025-07-25 10:43 | P.PNIM_ITS ---
Progress Note: A&P Assessment and Plan (1) Essential (primary) hypertension: Code(s): I10 - Essential (primary) hypertension Status: Acute (2) Acute cholecystitis: Code(s): K81.0 - Acute cholecystitis Status: Acute Plan 1. Acute cholecystitis: Admit to General Medicine NPO IV fluids Pain control f/u blood culture IV Zosyn s/p lap cholecystectomy with IOC on 07/24/25 Cholangiogram demonstrated filling defects in the distal common duct, suspicious for stones versus gas. There is a partial obstruction to flow of contrast into the duodenum. The bile ducts are dilated. GI consulted plan for ERCP today or tomorrow 2. Elevated LFTs -GI consulted -plan for ERCP today or tomorrow -CMP in am 2. Hold all home medications due to NPO status 3. DVT prophylaxis: SCDs 4. Code status: Full 5. Disposition: Admit to General Medicine Subjective Date/time seen: 07/25/25 10:43 Interval history: 60-year-old female with history of hypertension, MDD, RAMO presents to the ED with right-sided abdominal pain which radiates into her back intermittently for the past 4 days. Patient was admitted for acute cholecystitis. Patient seen and examined today for a follow up visit. Patient seen lying in bed, in no acute distress. Patient reports her post operative pain is controlled with current pain regimen. Patient was taken to the operating room by general surgery and is status post laparoscopic cholecystectomy with intraoperative cholangiogram on 07/24/2025. Cholangiogram demonstrated filling defects in the distal common duct and partial obstruction of flow of contrast into the duodenum. The bile ducts are dilated. GI was was consulted and patient will need to have an ERCP. Patient's LFT's are elevated. Plan for ERCP today or tomorrow per GI. Review of Systems Review of Systems: All systems reviewed & are unremarkable except as noted in HPI and below Exam 2 Narrative: General: well appearing, appears stated age. HEENT: normocephalic, . Mucous membranes moist. EOMI Respiratory: clear to ascultation bilaterally. No rales/rhonic/wheezes. Cardiovascular: Regular rate and rhythm, normal S1-S2 upon ascultation. No murmurs, rubs, or clicks. Abdomen: Soft, round, no pulsatile masses, nondistended and nontender. Bowel sounds present to all four quadrants. Extremities: No cyanosis, clubbing, or edema present. Neuro: Alert and orientated x 4. Cranial nerves 2-12 intact without focal deficit. Skin: Warm, dry, and intact, without rash, erythema, or lesion.? Psych: pleasant, cooperative, normal speech, normal affect Objective Data Vital Signs Vital Signs: Vital Signs - 24 hr 07/24/25 13:03 07/24/25 14:19 07/24/25 14:35 Temperature 97.6 F 97.6 F Pulse Rate 55 L 71 55 L Respiratory Rate 16 16 12 Blood Pressure 115/82 141/84 H 140/80 Pulse Oximetry 100 100 100 Oxygen Delivery Room Air Simple Face Mask Simple Face Mask Oxygen Flow Rate 8 8 07/24/25 14:42 07/24/25 14:50 07/24/25 15:05 Temperature Pulse Rate 60 54 L Respiratory Rate 16 12 Blood Pressure 136/80 140/79 Pulse Oximetry 100 97 Oxygen Delivery Room Air Room Air Room Air Oxygen Flow Rate 07/24/25 15:20 07/24/25 15:40 07/24/25 15:46 Temperature 96.5 F L Pulse Rate 55 L 57 L 60 Respiratory Rate 12 14 18 Blood Pressure 127/76 136/89 125/71 Pulse Oximetry 97 98 100 Oxygen Delivery Room Air Room Air Oxygen Flow Rate 07/24/25 16:01 07/24/25 16:31 07/24/25 17:31 Temperature 96.5 F L 96.5 F L Pulse Rate 64 65 66 Respiratory Rate 18 18 18 Blood Pressure 117/83 110/75 104/61 Pulse Oximetry 100 100 100 Oxygen Delivery Oxygen Flow Rate 07/24/25 21:31 07/25/25 01:31 07/25/25 05:31 Temperature 97.0 F L 97.4 F L 97.6 F Pulse Rate 61 60 60 Respiratory Rate 18 18 18 Blood Pressure 125/83 112/72 120/76 Pulse Oximetry 99 100 98 Oxygen Delivery Oxygen Flow Rate Intake/Output Intake/Output: Intake & Output 07/22/25 07/23/25 07/24/25 07/25/25 23:59 23:59 23:59 23:59 Intake Total 2739 2049 Balance 2739 2049 Meds/Results Medications: Active Medications Generic Name Dose Route Start Last Admin Trade Name Freq PRN Reason Stop Dose Admin Hydrocodone Bitart/Acetaminophen 1 tab 07/24/25 15:46 Hydrocodone/Acetaminophen (*Crx) 5-325 Mg Tablet PO Q4H PRN Pain Rated 4-6 Hydrocodone Bitart/Acetaminophen 1 tab 07/24/25 15:46 07/24/25 21:16 Hydrocodone/Acetaminophen (*Crx) 7.5-325 Mg Tablet PO 1 tab Q4H PRN Administration Pain Rated 7-10 Sodium Chloride 1,000 mls @ 125 mls/hr 07/24/25 02:00 07/25/25 10:27 Normal Saline Iv IV CONT 125 mls/hr .Q8H LUAN Administration Piperacillin Sod/Tazobactam 50 mls @ 100 mls/hr 07/24/25 09:00 07/25/25 10:15 Sod 3.375 gm/ Sodium Chloride IVPB 100 mls/hr Q6H LUAN Administration Morphine Sulfate 2 mg 07/24/25 15:46 Morphine Sulfate (*Crx) 2 Mg/Ml Inj IV PUSH Q2H PRN Breakthrough Pain Rated 4-6 or NPO Morphine Sulfate 4 mg 07/24/25 15:46 07/25/25 10:27 Morphine Sulfate (*Crx) 4 Mg/Ml Inj IV PUSH 4 mg Q2H PRN Administration Breakthrough Pain Rated 7-10 or NPO Naloxone HCl 0.1 mg 07/24/25 15:46 Naloxone Hcl 0.4 Mg/Ml Vial IV PUSH Q2M PRN Opiate Reversal Ondansetron HCl 4 mg 07/24/25 02:00 Ondansetron Inj 4 Mg/2 Ml Vial IV PUSH Q4H PRN Nausea Radiology Results: ITS Impressions Chest X-Ray 07/23/25 20:37 IMPRESSION: 1: NO ACUTE CARDIOPULMONARY DISEASE. Abdomen/Pelvis CT 07/24/25 08:37 IMPRESSION: 1. Findings concerning for acute cholecystitis. Ultrasound can be performed for further evaluation, as clinically indicated. 2. Multiple subcentimeter hypodensities are seen in the liver, incompletely evaluated on current examination. Nonemergent outpatient MRI is recommended for further evaluation, as clinically indicated. Upper Quadrant Ultrasound 07/24/25 12:37 IMPRESSION: 1. Cholelithiasis with prominent edematous wall thickening of the gallbladder which could be seen with acute cholecystitis. There is however no dilation of the gallbladder as typically seen with acute cholecystitis and the sonographic Delacruz sign was negative albeit with reduced sensitivity and differential would include chronic cholecystitis and hepatitis rather liver disease or heart, heart failure, renal failure or other generalized edema forming states. If clinically indicated could consider HIDA scan for further evaluation. Cholangiogram,Operative 07/24/25 14:17 IMPRESSION: 1. Filling defects distal common duct, suspicious for stones versus gas. There is partial obstruction to flow of contrast into the duodenum. The bile ducts are dilated. Labs Labs: Laboratory Results - last 24 hr 07/25/25 05:32 WBC 4.5 RBC 3.87 L Hgb 11.1 L Hct 34.1 L MCV 88.1 MCH 28.7 MCHC 32.6 RDW 12.5 Plt Count 192 MPV 10.9 H Sodium 137 Potassium 3.4 Chloride 107 Carbon Dioxide 26 Anion Gap 4 BUN 4 L Creatinine 0.73 Estim Creat Clear Calc 75 Estimated GFR > 60 Glucose 99 Calcium 9.8 Total Bilirubin 1.5 H AST 611 H ALT 600 H Alkaline Phosphatase 263 H Total Protein 5.8 L Albumin 3.2 L Quality VTE Prophylaxis VTE prophylaxis: mechanical ordered
[2025-07-25 13:31] VITALS: BP 134/80; PULSE 63; RESP 18; TEMP 35.9; O2SAT 100
--- NOTE | 2025-07-25 14:45 | WPDANESPN ---
Anes - Prog Note Post-Op Date/Time: 07/25/25 14:45 Cardiovascular status: normal Respiratory status: normal Airway patency: baseline Mental status: baseline Vital Signs: Last Vital Signs Temp 36.4 C 07/25/25 05:31 Pulse 60 07/25/25 05:31 Resp 18 07/25/25 05:31 BP 120/76 07/25/25 05:31 Pulse Ox 98 07/25/25 05:31 O2 Del Method Room Air 07/24/25 15:40 O2 Flow Rate 8 07/24/25 14:35 Pain Score (VAS): 4 I/O: Intake & Output 07/24/25 07/25/25 07/25/25 23:59 07:59 15:59 Intake Total 340 1050 1050 Balance 340 1050 1050 Laboratory Tests 07/25/25 05:32 07/25/25 05:32 07/25/25 05:32 WBC 4.5 RBC 3.87 L Hgb 11.1 L Hct 34.1 L MCV 88.1 MCH 28.7 MCHC 32.6 RDW 12.5 Plt Count 192 MPV 10.9 H Sodium 137 Potassium 3.4 Chloride 107 Carbon Dioxide 26 Anion Gap 4 BUN 4 L Creatinine 0.73 Estim Creat Clear Calc 75 Estimated GFR > 60 Glucose 99 Calcium 9.8 Total Bilirubin 1.5 H AST 611 H ALT 600 H Alkaline Phosphatase 263 H Total Protein 5.8 L Albumin 3.2 L Patient Feedback: Patient satisfied with anesthetic care.
--- NOTE | 2025-07-25 16:09 | WPDGICN ---
Assessment and Plan Assessment and plan (1) Choledocholithiasis: Code(s): K80.50 - Calculus of bile duct without cholangitis or cholecystitis without obstruction Status: Acute Assessment and Plan: ERCP tomorrow, I talked to patient in detail including but not limited of risk of pancreatitis (2) Elevated liver enzymes: Code(s): R74.8 - Abnormal levels of other serum enzymes Status: Acute Assessment and Plan: continue to trend (3) Acute cholecystitis: Code(s): K81.0 - Acute cholecystitis Status: Acute Assessment and Plan: s/p surgery pain has improved (4) Abdominal pain: Code(s): R10.9 - Unspecified abdominal pain Status: Acute (5) Gastric banding status: Code(s): Z98.84 - Bariatric surgery status Status: Acute Assessment and Plan: this can make ercp more challenging GI Consult Note Consult date/time: 07/25/25 16:09 Reason for consult: abnormal IOC HPI: Maggie Belcher is a 60 year old female h/o gastric sleeve admitted with severe abdominal pain and elevated liver enzymes, work up showed acute cholecystitis, taken for lap deacon- IOC showed possible filling defect in bile duct. Original pain from admission has improved, today is different pain which is less and probably due to recent surgery, overall better. Bili down to 1.5 from 2.9. Denies history of pancreatitis, no recent scopes, alcohol only socially. Review of Systems Constitutional: Constitutional: Denies difficulty sleeping Eyes: Eyes: Denies blurry vision ENT: Reports Normal hearing present, Denies headache(s) and Denies neck pain Cardiovascular: Cardiovascular: Denies chest pain and Denies dyspnea Respiratory: Respiratory: Denies dyspnea Gastrointestinal: Gastrointestinal: Reports no additional gastrointestinal complaints Genitourinary: Genitourinary: Denies dysuria Musculoskeletal: Musculoskeletal: Denies neck pain Integumentary/Breasts: Skin/Breast: Denies dry skin Neurologic: Reports Normal hearing present, Denies headache(s) and Denies weakness Psychiatric: Psychiatric: Denies anxiety PMFSH Past Medical History Medical History (Updated 07/25/25 @ 16:12 by Daniel Woods MD) Abdominal pain Choledocholithiasis GERD (gastroesophageal reflux disease) RAMO (generalized anxiety disorder) Essential (primary) hypertension Arthritis of both knees Surgical History Surgical History (Updated 07/24/25 @ 12:50 by Adair Delarosa DO) History of sleeve gastrectomy Hx of laparoscopic gastric banding Family History Family History Mother Hypertension Family history of elevated blood lipids Family history of diabetes mellitus in first degree relative Carcinoma of colon Grandparent Cerebrovascular accident Heart disease Cataracts, bilateral Father Heart disease Sibling Diabetes mellitus Hypertension Social History Social History Social History: Smoking status: Never smoker Second hand tobacco smoke exposure: No Alcohol intake: current Alcohol use details: Ocassionally Substance use: never Substance use type: does not use Lack of Transportation: No Lack of Food: Never True Current Housing: I Have Housing Concerned About Future Housing: No Difficulty Paying Gas/Electric Bills: No Difficulty Paying for Meds: No Currently Unemployed: No Education: Decline to Answer Difficulty w/ Childcare or Family Care: No Living arrangements: with family Occupation/Education: occupation Gender identity (if verbalized by the patient): Female Sexual Orientation (if Verbalized by the Patient): Straight or Heterosexual Spiritual care concerns: No Meds Home Medications and Allergies Home Medications ?Medication ?Instructions ?Recorded ?Confirmed ?Type sumatriptan succinate 50 mg tablet 50 mg PO ONCE PRN Migraine 12/08/20 07/24/25 Rx Headache #12 tabs linaclotide 72 mcg capsule 72 mcg PO DAILY #30 caps 01/13/22 07/24/25 Rx (Linzess) omeprazole 20 mg capsule,delayed 20 mg PO DAILY 07/24/25 07/24/25 History release Allergies Allergy/AdvReac Type Severity Reaction Status Date / Time No Known Allergies Allergy Verified 07/24/25 12:22 Vital Signs Vital Signs - 24 hr 07/24/25 16:31 07/24/25 17:31 07/24/25 21:31 Temperature 96.5 F L 96.5 F L 97.0 F L Pulse Rate 65 66 61 Respiratory Rate 18 18 18 Blood Pressure 110/75 104/61 125/83 Pulse Oximetry 100 100 99 Oxygen Delivery 07/25/25 01:31 07/25/25 05:31 07/25/25 08:00 Temperature 97.4 F L 97.6 F Pulse Rate 60 60 Respiratory Rate 18 18 Blood Pressure 112/72 120/76 Pulse Oximetry 100 98 Oxygen Delivery Room Air 07/25/25 13:31 Temperature 96.6 F L Pulse Rate 63 Respiratory Rate 18 Blood Pressure 134/80 Pulse Oximetry 100 Oxygen Delivery Exam Narrative: GENERAL: Well-appearing, well-nourished, and in no acute distress. HEAD: Normocephalic, atraumatic. EYES: EOMI. ENT: Nares clear, no rhinorrhea or epistaxis. Mucous membranes moist. NECK: Supple. CHEST: Clear to auscultation. No respiratory distress. HEART: Regular rate and rhythm. No murmur heard. Normal peripheral pulses. ABDOMEN: Normoactive bowel sounds. Abdomen soft with tenderness in the right upper quadrant, recent surgery. No rebound or rigidity. No CVA tenderness EXTREMITIES: Normal range of motion. No edema. SKIN: Warm, dry, no rash. NEURO: No focal deficits. Alert and oriented x3 Results Labs 07/25/25 05:32 07/25/25 05:32 Labs: Short CBC 07/25/25 Range/Units 05:32 WBC 4.5 (4.5-10.0) K/mm3 Hgb 11.1 L (12.0-15.0) g/dL Hct 34.1 L (37.0-47.0) % Plt Count 192 (150-375) k/mm3 [facility] 07/25/25 05:32 Sodium 137 Potassium 3.4 Chloride 107 Carbon Dioxide 26 BUN 4 L Creatinine 0.73 Glucose 99 Calcium 9.8 Liver Function 07/25/25 Range/Units 05:32 Total Bilirubin 1.5 H (0.2-1.3) mg/dL AST 611 H (14-36) U/L ALT 600 H (6-35) U/L Alkaline Phosphatase 263 H (38-126) U/L Albumin 3.2 L (3.5-5.1) g/dL
[2025-07-25] MEDS: MORPHINE SULFATE (*CRX) 2 MG/ML INJ IV PUSH (16:49)
[2025-07-25] MEDS: PHENYLEPH/SHARK OIL/MO/PETROL CREAM 26 GM 1 APPLIC RECTAL (17:59)
[2025-07-25] MEDS: HYDROcodone/acetaminophen (*CRX) 7.5-325 MG TABLET 1 TAB PO (21:28)
[2025-07-25 21:47] VITALS: BP 129/82; PULSE 76; RESP 20; TEMP 36.9; O2SAT 100
[2025-07-26] VITALS (14 sets, daily range): BP systolic 112–155; BP diastolic 73–89; PULSE 50–69; RESP 16–20; TEMP 36–37.1; O2SAT 97–100
[2025-07-26] MEDS: PIPERACILLIN/TAZOBACTAM SOD 3.375 GM in SODIUM CHLORIDE 0.9% IV 50 ML 100 ML IVPB ×3 (03:10→20:18)
[2025-07-26] MEDS: MORPHINE SULFATE (*CRX) 4 MG/ML INJ IV PUSH ×2 (03:12→20:26)
[2025-07-26 06:42] LABS: Hematocrit 36.0 % (37.0-47.0); Hemoglobin 11.7 g/dL (12.0-15.0); Immature Granulocyte Percent A 0.5 % (0-0.5); Lymphocytes Absolute Auto 1.94 K/mm3 (0.9-3.2); Mean Corpuscular HGB Conc 32.5 g/dl (32-36); Mean Corpuscular Hemoglobin 28.7 pg (26-34); Mean Corpuscular Volume 88.5 fl (80-100); Nucleated Red Blood Cells Absolute Auto 0.000 K/mm3 (0.0-0.012); Nucleated Red Blood Cells Perc 0.0 % (0.0-0.2); Platelet Count Result 193 k/mm3 (150-375); Red Blood Count 4.07 M/mm3 (4.2-5.4); White Blood Count 4.2 K/mm3 (4.5-10.0)
[2025-07-26 07:07] LABS: Alanine Aminotransferase 496 U/L (6-35); Albumin Level 3.5 g/dL (3.5-5.1); Alkaline Phosphatase 288 U/L (38-126); Anion Gap 5 mmol/L (4-12); Aspartate Amino Transferase 280 U/L (14-36); Bilirubin,Total 1.0 mg/dL (0.2-1.3); Blood Urea Nitrogen 3 mg/dL (7-17); Calcium 9.7 mg/dL (8.4-10.2); Carbon Dioxide 29 mmol/L (22-30); Chloride 108 mmol/L (98-107); Estimated CRCL calculation 71 ml/min; Estimated Glomerular Filt Rate > 60; Glucose 79 mg/dL (65-110); Potassium 3.0 mmol/L (3.4-5.0); Sodium 142 mmol/L (137-145); Total Protein 6.3 g/dL (6.3-8.2)
--- NOTE | 2025-07-26 07:48 | P.PNIM_ITS ---
Progress Note: A&P Assessment and Plan (1) Acute cholecystitis: Code(s): K81.0 - Acute cholecystitis Status: Acute Assessment and Plan: * Cholangiogram demonstrated filling defects in the distal common duct, gerhard picious for stones versus gas. There is a partial obstruction to flow of contrast into the duodenum. The bile ducts are dilated. * s/p lap cholecystectomy with IOC on 07/24/25 * IV fluids, Pain control,IV Zosyn * f/u blood culture * GI consulted * plan for ERCP today at 12:15 (2) Elevated liver enzymes: Code(s): R74.8 - Abnormal levels of other serum enzymes Status: Acute Assessment and Plan: * See above * GI consulted * plan for ERCP today * Monitor daily labs (3) Essential (primary) hypertension: Code(s): I10 - Essential (primary) hypertension Status: Acute Assessment and Plan: * Patient's blood pressure was reviewed on 07/26 * Blood pressure remains well controlled Plan Hold all home medications due to NPO status DVT prophylaxis: SCDs Code status: Full Disposition: Admit to General Medicine Subjective Date/time seen: 07/26/25 07:48 Interval history: 60-year-old female with history of hypertension, MDD, RAMO presents to the ED with right-sided abdominal pain which radiates into her back intermittently for the past 4 days. Patient was admitted for acute cholecystitis. 07/26/2025 Patient sitting comfortably in bed at time of exam. Plan for ERCP today @ 12:15, patient is anxious but in good spirits. Still has some RUQ discomfort at this time but states it is manageable. No other acute overnight events. Will reevaluate pending ERCP results with GI. Review of Systems Review of Systems: All systems reviewed & are unremarkable except as noted in HPI and below Exam Narrative: General: well appearing, appears stated age. HEENT: normocephalic, . Mucous membranes moist. EOMI Respiratory: clear to ascultation bilaterally. No rales/rhonic/wheezes. Cardiovascular: Regular rate and rhythm, normal S1-S2 upon ascultation. No m urmurs, rubs, or clicks. Abdomen: Soft, round, no pulsatile masses, nondistended and nontender. Bowel sounds present to all four quadrants. Extremities: No cyanosis, clubbing, or edema present. Neuro: Alert and orientated x 4. Cranial nerves 2-12 intact without focal deficit. Skin: Warm, dry, and intact, without rash, erythema, or lesion.? Psych: pleasant, cooperative, normal speech, normal affect Objective Data Vital Signs Vital Signs: Vital Signs - 24 hr 07/25/25 08:00 07/25/25 13:31 07/25/25 20:00 Temperature 96.6 F L Pulse Rate 63 Respiratory Rate 18 Blood Pressure 134/80 Pulse Oximetry 100 Oxygen Delivery Room Air Room Air 07/25/25 21:47 07/26/25 06:35 Temperature 98.5 F 98.7 F Pulse Rate 76 55 L Respiratory Rate 20 20 Blood Pressure 129/82 130/84 Pulse Oximetry 100 97 Oxygen Delivery Intake/Output Intake/Output: Intake & Output 07/23/25 07/24/25 07/25/25 07/26/25 23:59 23:59 23:59 23:59 Intake Total 2740 3200 0 Balance 2740 3200 0 Meds/Results Medications: Active Medications Generic Name Dose Route Start Last Admin Trade Name Freq PRN Reason Stop Dose Admin Hydrocodone Bitart/Acetaminophen 1 tab 07/24/25 15:46 Hydrocodone/Acetaminophen (*Crx) 5-325 Mg Tablet PO Q4H PRN Pain Rated 4-6 Hydrocodone Bitart/Acetaminophen 1 tab 07/24/25 15:46 07/25/25 21:28 Hydrocodone/Acetaminophen (*Crx) 7.5-325 Mg Tablet PO 1 tab Q4H PRN Administration Pain Rated 7-10 Sodium Chloride 1,000 mls @ 125 mls/hr 07/24/25 02:00 07/25/25 22:49 Normal Saline Iv IV CONT 125 mls/hr .Q8H LUAN Administration Piperacillin Sod/Tazobactam 50 mls @ 100 mls/hr 07/24/25 09:00 07/26/25 03:10 Sod 3.375 gm/ Sodium Chloride IVPB 100 mls/hr Q6H LUAN Administration Morphine Sulfate 2 mg 07/24/25 15:46 07/25/25 16:49 Morphine Sulfate (*Crx) 2 Mg/Ml Inj IV PUSH 2 mg Q2H PRN Administration Breakthrough Pain Rated 4-6 or NPO Morphine Sulfate 4 mg 07/24/25 15:46 07/26/25 03:12 Morphine Sulfate (*Crx) 4 Mg/Ml Inj IV PUSH 4 mg Q2H PRN Administration Breakthrough Pain Rated 7-10 or NPO Naloxone HCl 0.1 mg 07/24/25 15:46 Naloxone Hcl 0.4 Mg/Ml Vial IV PUSH Q2M PRN Opiate Reversal Ondansetron HCl 4 mg 07/24/25 02:00 Ondansetron Inj 4 Mg/2 Ml Vial IV PUSH Q4H PRN Nausea Phenyleph/Shark Oil/Min Oil/Petrol 1 applic 07/25/25 16:00 07/25/25 17:59 Phenyleph/Shark Oil/Mo/Petrol Cream 26 Gm RECTAL 1 applic DAILY LUAN Administration Radiology Results: ITS Impressions Chest X-Ray 07/23/25 20:37 IMPRESSION: 1: NO ACUTE CARDIOPULMONARY DISEASE. Abdomen/Pelvis CT 07/24/25 08:37 IMPRESSION: 1. Findings concerning for acute cholecystitis. Ultrasound can be performed for further evaluation, as clinically indicated. 2. Multiple subcentimeter hypodensities are seen in the liver, incompletely evaluated on current examination. Nonemergent outpatient MRI is recommended for further evaluation, as clinically indicated. Upper Quadrant Ultrasound 07/24/25 12:37 IMPRESSION: 1. Cholelithiasis with prominent edematous wall thickening of the gallbladder which could be seen with acute cholecystitis. There is however no dilation of the gallbladder as typically seen with acute cholecystitis and the sonographic Delacruz sign was negative albeit with reduced sensitivity and differential would include chronic cholecystitis and hepatitis rather liver disease or heart, heart failure, renal failure or other generalized edema forming states. If clinically indicated could consider HIDA scan for further evaluation. Cholangiogram,Operative 07/24/25 14:17 IMPRESSION: 1. Filling defects distal common duct, suspicious for stones versus gas. There is partial obstruction to flow of contrast into the duodenum. The bile ducts are dilated. Labs Labs: Laboratory Results - last 24 hr 07/26/25 05:52 WBC 4.2 L RBC 4.07 L Hgb 11.7 L Hct 36.0 L MCV 88.5 MCH 28.7 MCHC 32.5 RDW 12.6 Plt Count 193 MPV 10.9 H Immature Gran % (Auto) 0.5 Neut % (Auto) 45.0 L Lymph % (Auto) 46.0 H [place] % (Auto) 6.4 Eos % (Auto) 1.4 Baso % (Auto) 0.7 Lymph # (Auto) 1.94 [place] # (Auto) 0.3 Eos # (Auto) 0.1 Baso # (Auto) 0.0 Abs Immat Gran (auto) 0.02 Absolute Neuts (auto) 1.9 Absolute Nucleated RBC 0.000 Nucleated RBC % 0.0 Sodium 142 Potassium 3.0 L Chloride 108 H Carbon Dioxide 29 Anion Gap 5 BUN 3 L Creatinine 0.77 Estim Creat Clear Calc 71 Estimated GFR > 60 Glucose 79 Calcium 9.7 Total Bilirubin 1.0 AST 280 H ALT 496 H Alkaline Phosphatase 288 H Total Protein 6.3 Albumin 3.5 Quality VTE Prophylaxis VTE prophylaxis: mechanical ordered
[2025-07-26] MEDS: SODIUM CHLORIDE 0.9% IV 1,000 ML 125 ML IV CONT ×2 (08:00→20:18)
[2025-07-26] MEDS: MORPHINE SULFATE (*CRX) 2 MG/ML INJ IV PUSH (08:04)
[2025-07-26] MEDS: PHENYLEPH/SHARK OIL/MO/PETROL CREAM 26 GM 1 APPLIC RECTAL (10:08)
[2025-07-26] MEDS: LACTATED RINGERS 1,000 ML 150 ML IV CONT (10:34)
--- NOTE | 2025-07-26 10:35 | WPDANESEPPF ---
Anes - Initial Pre Proc Eval Procedure: Operation Date: 07/26/25 12:15 Proposed Procedures p Endoscopic Retro Cholangiopancreatogram - Daniel Woods MD Date/Time: 07/26/25 10:35 Surgeon: Linda Cotto MD Pre Op Diagnosis: Acute cholecystitis Patient Data Age: 60 Gender: F Height: 1.63 m Weight: 81 kg Last Vital Signs Temp 36.0 C L 07/26/25 10:32 Pulse 53 L 07/26/25 10:32 Resp 18 07/26/25 10:32 BP 122/74 07/26/25 10:32 Pulse Ox 100 07/26/25 10:32 O2 Del Method Room Air 07/26/25 10:32 O2 Flow Rate 8 07/24/25 14:35 Allergies Allergy/AdvReac Type Severity Reaction Status Date / Time No Known Allergies Allergy Verified 07/26/25 10:26 Home Medications ?Medication ?Instructions ?Recorded ?Confirmed ?Type sumatriptan succinate 50 mg tablet 50 mg PO ONCE PRN Migraine 12/08/20 07/24/25 Rx Headache #12 tabs linaclotide 72 mcg capsule 72 mcg PO DAILY #30 caps 01/13/22 07/24/25 Rx (Linzess) omeprazole 20 mg capsule,delayed 20 mg PO DAILY 07/24/25 07/24/25 History release Laboratory Tests 07/26/25 05:52 WBC 4.2 L K/mm3 (4.5-10.0) RBC 4.07 L M/mm3 (4.2-5.4) Hgb 11.7 L g/dL (12.0-15.0) Hct 36.0 L % (37.0-47.0) MCV 88.5 fl (80-100) MCH 28.7 pg (26-34) MCHC 32.5 g/dl (32-36) RDW 12.6 % (11.5-14.5) Plt Count 193 k/mm3 (150-375) MPV 10.9 H fl (7.4-10.4) Immature Gran % (Auto) 0.5 % (0-0.5) Neut % (Auto) 45.0 L % (45.5-73.1) Lymph % (Auto) 46.0 H % (18.3-44.2) [place] % (Auto) 6.4 % (2.6-8.5) Eos % (Auto) 1.4 % (0-4.4) Baso % (Auto) 0.7 % (0.2-1.2) Lymph # (Auto) 1.94 K/mm3 (0.9-3.2) [place] # (Auto) 0.3 K/mm3 (0.1-0.6) Eos # (Auto) 0.1 K/mm3 (0-0.3) Baso # (Auto) 0.0 K/mm3 (0.0-0.1) Abs Immat Gran (auto) 0.02 K/mm3 (0.00-0.031) Absolute Neuts (auto) 1.9 K/mm3 (1.3-6.7) Absolute Nucleated RBC 0.000 K/mm3 (0.0-0.012) Nucleated RBC % 0.0 % (0.0-0.2) Sodium 142 mmol/L (137-145) Potassium 3.0 L mmol/L (3.4-5.0) Chloride 108 H mmol/L (98-107) Carbon Dioxide 29 mmol/L (22-30) Anion Gap 5 mmol/L (4-12) BUN 3 L mg/dL (7-17) Creatinine 0.77 mg/dL (0.7-1.0) Estim Creat Clear Calc 71 ml/min Estimated GFR > 60 (59 - ) Glucose 79 mg/dL (65-110) Calcium 9.7 mg/dL (8.4-10.2) Total Bilirubin 1.0 mg/dL (0.2-1.3) AST 280 H U/L (14-36) ALT 496 H U/L (6-35) Alkaline Phosphatase 288 H U/L (38-126) Total Protein 6.3 g/dL (6.3-8.2) Albumin 3.5 g/dL (3.5-5.1) Patient hx anesthesia problems: none Family hx anesthesia problems: none Results Review: All pre-operative results and documents have been reviewed as part of the pre-operative evaluation. [facility] Past Medical History Medical History (Updated 07/25/25 @ 16:12 by Daniel Woods MD) Abdominal pain Choledocholithiasis GERD (gastroesophageal reflux disease) RAMO (generalized anxiety disorder) Essential (primary) hypertension Arthritis of both knees Surgical History Surgical History (Updated 07/24/25 @ 12:50 by Adair Delarosa DO) History of sleeve gastrectomy Hx of laparoscopic gastric banding Family History Family History Mother Hypertension Family history of elevated blood lipids Family history of diabetes mellitus in first degree relative Carcinoma of colon Grandparent Cerebrovascular accident Heart disease Cataracts, bilateral Father Heart disease Sibling Diabetes mellitus Hypertension Social History Social History Social History: Smoking status: Never smoker Second hand tobacco smoke exposure: No Alcohol intake: current Alcohol use details: Ocassionally Substance use: never Substance use type: does not use Lack of Transportation: No Lack of Food: Never True Current Housing: I Have Housing Concerned About Future Housing: No Difficulty Paying Gas/Electric Bills: No Difficulty Paying for Meds: No Currently Unemployed: No Education: Decline to Answer Difficulty w/ Childcare or Family Care: No Living arrangements: with family Occupation/Education: occupation Gender identity (if verbalized by the patient): Female Sexual Orientation (if Verbalized by the Patient): Straight or Heterosexual Spiritual care concerns: No Anes - Eval Final PreProcedure Day of Procedure 07/26/25 10:35 Patient weight: obese Heart: regular rate and rhythm Lungs: clear to auscultation Airway: Mallampati scale class II Neurological: alert and oriented Last oral intake: >/= 8 hours ASA classification: III Emergent: no Anesthetic plan: proceed Anesthesia type and monitoring: general ETT and standard monitoring Results Review: All pre-operative results and documents have been reviewed as part of the pre-operative evaluation. Informed Consent: The patient's anesthetic plan and its attendant risks and benefits were discussed with the patient/family/POA. Questions were solicited and answers provided to the satisfaction of the patient/family/POA.
[2025-07-26] MEDS: INDOMETHACIN 50 MG SUPP.RECT RECTAL (11:26)
--- NOTE | 2025-07-26 11:45 | SUR.OPER ---
ERCP COMPLETED AT 1142,EGD STARTED AT 1145
--- NOTE | 2025-07-26 12:21 | P.PNGS_ITS ---
Progress Note: A&P Assessment and Plan (1) Acute cholecystitis: Code(s): K81.0 - Acute cholecystitis Status: Acute Assessment and Plan: * POD 2 s/p laparoscopic cholecystectomy with IOC. Patient tolerated the pr ocedure well. Complains of some right upper quadrant pain radiating to her back. * Bilirubin 1.0. LFTs normalizing. * GI attempted ERCP this morning, but they were unsuccessful in retrieving the stone.. Due to patient's previous gastric bypass surgery, the scope was not able to be passed to the level of the ambulate. They suggested referral to tertiary center or transfer. (2) Elevated liver enzymes: Code(s): R74.8 - Abnormal levels of other serum enzymes Status: Acute Assessment and Plan: Normalizing. Plan Discussed patient's case and plan of care with Dr. Gillis. Subjective Subjective Date/Time Seen: 07/26/25 12:21 Post Op day: 2 Patient reports: no new complaints and no bowel movement Interval history: Patient is doing well today. States that she is still having some right upper quadrant pain radiating to her back. She feels hungry. Exam Const: General: comfortable and no acute distress Cardio: Rate: regular rate GI: Inspection: non-distended GI Palp: Yes Soft to palpation, Yes Tenderness to palpation present (GI) (RUQ incisional pain) and No Guarding due to palpation present (GI) Other: Incisions clean dry and intact. No signs of infection, dehiscence, skin necrosis. Skin: General skin exam: normal color and no rashes or lesions noted Neuro: Speech: normal speech Sensory Exam: normal sensation Extrem: General: normal to inspection Psych: Mental Status: mental status grossly normal Objective Data Vital Signs Vital Signs: Vital Signs - 24 hr 07/25/25 13:31 07/25/25 20:00 07/25/25 21:47 Temperature 96.6 F L 98.5 F Pulse Rate 63 76 Respiratory Rate 18 20 Blood Pressure 134/80 129/82 Pulse Oximetry 100 100 Oxygen Delivery Room Air 07/26/25 06:35 07/26/25 10:32 07/26/25 11:53 Temperature 98.7 F 96.8 F L Pulse Rate 55 L 53 L 69 Respiratory Rate 20 18 18 Blood Pressure 130/84 122/74 132/88 Pulse Oximetry 97 100 100 Oxygen Delivery Room Air Room Air 07/26/25 12:03 07/26/25 12:13 Temperature Pulse Rate 62 60 Respiratory Rate 20 18 Blood Pressure 112/80 123/73 Pulse Oximetry 100 100 Oxygen Delivery Room Air Room Air Intake/Output Intake/Output: Intake & Output 07/23/25 07/24/25 07/25/25 07/26/25 23:59 23:59 23:59 23:59 Intake Total 2740 3200 1050 Balance 2740 3200 1050 Meds/Results Medications: Active Medications Generic Name Dose Route Start Last Admin Trade Name Freq PRN Reason Stop Dose Admin Hydrocodone Bitart/Acetaminophen 1 tab 07/24/25 15:46 Hydrocodone/Acetaminophen (*Crx) 5-325 Mg Tablet PO Q4H PRN Pain Rated 4-6 Hydrocodone Bitart/Acetaminophen 1 tab 07/24/25 15:46 07/25/25 21:28 Hydrocodone/Acetaminophen (*Crx) 7.5-325 Mg Tablet PO 1 tab Q4H PRN Administration Pain Rated 7-10 Sodium Chloride 1,000 mls @ 125 mls/hr 07/24/25 02:00 07/26/25 08:00 Normal Saline Iv IV CONT 125 mls/hr .Q8H LUAN Administration Piperacillin Sod/Tazobactam 50 mls @ 100 mls/hr 07/24/25 09:00 07/26/25 10:00 Sod 3.375 gm/ Sodium Chloride IVPB 100 mls/hr Q6H LUAN Administration Lactated Ringer's 1,000 mls @ 150 mls/hr 07/26/25 10:35 07/26/25 10:34 Lr - Lactated Ringers Iv IV CONT 150 mls/hr .Q6H40M LUAN Administration Morphine Sulfate 2 mg 07/24/25 15:46 07/26/25 08:04 Morphine Sulfate (*Crx) 2 Mg/Ml Inj IV PUSH 2 mg Q2H PRN Administration Breakthrough Pain Rated 4-6 or NPO Morphine Sulfate 4 mg 07/24/25 15:46 07/26/25 03:12 Morphine Sulfate (*Crx) 4 Mg/Ml Inj IV PUSH 4 mg Q2H PRN Administration Breakthrough Pain Rated 7-10 or NPO Naloxone HCl 0.1 mg 07/24/25 15:46 Naloxone Hcl 0.4 Mg/Ml Vial IV PUSH Q2M PRN Opiate Reversal Ondansetron HCl 4 mg 07/24/25 02:00 Ondansetron Inj 4 Mg/2 Ml Vial IV PUSH Q4H PRN Nausea Phenyleph/Shark Oil/Min Oil/Petrol 1 applic 07/25/25 16:00 07/26/25 10:08 Phenyleph/Shark Oil/Mo/Petrol Cream 26 Gm RECTAL 1 applic DAILY LUAN Administration Radiology Results: ITS Impressions Chest X-Ray 07/23/25 20:37 IMPRESSION: 1: NO ACUTE CARDIOPULMONARY DISEASE. Abdomen/Pelvis CT 07/24/25 08:37 IMPRESSION: 1. Findings concerning for acute cholecystitis. Ultrasound can be performed for further evaluation, as clinically indicated. 2. Multiple subcentimeter hypodensities are seen in the liver, incompletely evaluated on current examination. Nonemergent outpatient MRI is recommended for further evaluation, as clinically indicated. Upper Quadrant Ultrasound 07/24/25 12:37 IMPRESSION: 1. Cholelithiasis with prominent edematous wall thickening of the gallbladder which could be seen with acute cholecystitis. There is however no dilation of the gallbladder as typically seen with acute cholecystitis and the sonographic Delacruz sign was negative albeit with reduced sensitivity and differential would include chronic cholecystitis and hepatitis rather liver disease or heart, heart failure, renal failure or other generalized edema forming states. If clinically indicated could consider HIDA scan for further evaluation. Cholangiogram,Operative 07/24/25 14:17 IMPRESSION: 1. Filling defects distal common duct, suspicious for stones versus gas. There is partial obstruction to flow of contrast into the duodenum. The bile ducts are dilated. Labs Labs: Laboratory Results - last 24 hr 07/26/25 05:52 WBC 4.2 L RBC 4.07 L Hgb 11.7 L Hct 36.0 L MCV 88.5 MCH 28.7 MCHC 32.5 RDW 12.6 Plt Count 193 MPV 10.9 H Immature Gran % (Auto) 0.5 Neut % (Auto) 45.0 L Lymph % (Auto) 46.0 H [place] % (Auto) 6.4 Eos % (Auto) 1.4 Baso % (Auto) 0.7 Lymph # (Auto) 1.94 [place] # (Auto) 0.3 Eos # (Auto) 0.1 Baso # (Auto) 0.0 Abs Immat Gran (auto) 0.02 Absolute Neuts (auto) 1.9 Absolute Nucleated RBC 0.000 Nucleated RBC % 0.0 Sodium 142 Potassium 3.0 L Chloride 108 H Carbon Dioxide 29 Anion Gap 5 BUN 3 L Creatinine 0.77 Estim Creat Clear Calc 71 Estimated GFR > 60 Glucose 79 Calcium 9.7 Total Bilirubin 1.0 AST 280 H ALT 496 H Alkaline Phosphatase 288 H Total Protein 6.3 Albumin 3.5
[2025-07-26] MEDS: BENZOCAINE/MENTHOL (*BKC) 18 EA LOZENGE 1 LOZENGE PO (13:43)
[2025-07-26] MEDS: HYDROcodone/acetaminophen (*CRX) 5-325 MG TABLET 1 TAB PO ×2 (14:02→18:24)
[2025-07-27] MEDS: MORPHINE SULFATE (*CRX) 4 MG/ML INJ IV PUSH (00:31)
[2025-07-27] MEDS: PIPERACILLIN/TAZOBACTAM SOD 3.375 GM in SODIUM CHLORIDE 0.9% IV 50 ML 100 ML IVPB ×4 (01:43→19:47)
[2025-07-27] MEDS: SODIUM CHLORIDE 0.9% IV 1,000 ML 125 ML IV CONT ×2 (05:19→21:16)
[2025-07-27] MEDS: HYDROcodone/acetaminophen (*CRX) 5-325 MG TABLET 1 TAB PO ×3 (05:23→18:39)
[2025-07-27 05:49] VITALS: BP 123/71; PULSE 50; RESP 20; TEMP 36.2; O2SAT 98
[2025-07-27 08:35] LABS: Hematocrit 34.2 % (37.0-47.0); Hemoglobin 11.4 g/dL (12.0-15.0); Immature Granulocyte Percent A 0.6 % (0-0.5); Lymphocytes Absolute Auto 1.69 K/mm3 (0.9-3.2); Mean Corpuscular HGB Conc 33.3 g/dl (32-36); Mean Corpuscular Hemoglobin 28.8 pg (26-34); Mean Corpuscular Volume 86.4 fl (80-100); Nucleated Red Blood Cells Absolute Auto 0.000 K/mm3 (0.0-0.012); Nucleated Red Blood Cells Perc 0.0 % (0.0-0.2); Platelet Count Result 195 k/mm3 (150-375); Red Blood Count 3.96 M/mm3 (4.2-5.4); White Blood Count 3.4 K/mm3 (4.5-10.0)
[2025-07-27 08:58] LABS: Alanine Aminotransferase 370 U/L (6-35); Albumin Level 3.0 g/dL (3.5-5.1); Alkaline Phosphatase 272 U/L (38-126); Anion Gap 3 mmol/L (4-12); Aspartate Amino Transferase 210 U/L (14-36); Bilirubin,Total 1.4 mg/dL (0.2-1.3); Calcium 9.3 mg/dL (8.4-10.2); Carbon Dioxide 33 mmol/L (22-30); Chloride 103 mmol/L (98-107); Estimated CRCL calculation 88 ml/min; Estimated Glomerular Filt Rate > 60; Glucose 77 mg/dL (65-110); Potassium 2.7 mmol/L (3.4-5.0); Sodium 139 mmol/L (137-145); Total Protein 5.7 g/dL (6.3-8.2)
[2025-07-27 09:08] LABS: Blood Urea Nitrogen < 2 mg/dL (7-17)
--- NOTE | 2025-07-27 10:02 | P.PN_ITS ---
Progress Note: A&P Assessment and Plan (1) Acute cholecystitis: Code(s): K81.0 - Acute cholecystitis Status: Acute Assessment and Plan: Status post laparoscopic cholecystectomy. Possible retained common bile duct stone which is partially obstructive. Liver enzymes have decreased over the last couple days but then slightly increased today. MRCP to see if the retained common bile duct stone has passed has been done but the reading is pending. Potassium is low at 2.7 today. Need to be replaced either orally or IV. Discussed with the patient that she does have a retained common bile duct stone then she may need referral to interventional choke setter in [place] to the fact she has Aramis-en-Y reconstruction from her gastric bypass. Follow-up on reading of the MRCP. From surgery standpoint she can eat today low-fat diet. (2) Choledocholithiasis: Code(s): K80.50 - Calculus of bile duct without cholangitis or cholecystitis without o bstruction Status: Acute Subjective Date/time seen: 07/27/25 10:02 Interval history: Patient has no real complaints today. Minor stable right upper quadrant tenderness. No nausea or vomiting. Was NPO this morning for MRCP. MRCP has been done but there is no radiology reading. Total bilirubin increased from 1.0 to 1.4 this morning. Other liver enzymes are slightly elevated as well. No fever or tachycardia. Exam GI: Other: Abdomen is soft and nondistended. Lap choly port sites incisions are healing location. No abdominal tenderness to suggest acute abdomen. Objective Data Vital Signs Vital Signs: Vital Signs - 24 hr 07/26/25 10:32 07/26/25 11:53 07/26/25 12:03 Temperature 36.0 C L Pulse Rate 53 L 69 62 Respiratory Rate 18 18 20 Blood Pressure 122/74 132/88 112/80 Pulse Oximetry 100 100 100 Oxygen Delivery Room Air Room Air Room Air 07/26/25 12:13 07/26/25 12:23 07/26/25 12:33 Temperature Pulse Rate 60 56 L 53 L Respiratory Rate 18 18 16 Blood Pressure 123/73 127/82 134/81 Pulse Oximetry 100 100 100 Oxygen Delivery Room Air Room Air Room Air 07/26/25 12:43 07/26/25 12:55 07/26/25 13:20 Temperature 36.5 C 37.0 C Pulse Rate 54 L 53 L 54 L Respiratory Rate 18 18 20 Blood Pressure 130/73 155/89 H 141/83 H Pulse Oximetry 100 100 100 Oxygen Delivery Room Air 07/26/25 13:50 07/26/25 14:50 07/26/25 18:36 Temperature 37.0 C 36.9 C 37.0 C Pulse Rate 56 L 50 L 54 L Respiratory Rate 20 18 20 Blood Pressure 140/80 142/84 H 140/80 Pulse Oximetry 100 100 100 Oxygen Delivery 07/26/25 20:26 07/26/25 21:15 07/27/25 05:49 Temperature 36.7 C 36.2 C L Pulse Rate 56 L 50 L Respiratory Rate 20 20 Blood Pressure 118/73 123/71 Pulse Oximetry 100 98 Oxygen Delivery Room Air Intake/Output Intake/Output: Intake & Output 07/24/25 07/25/25 07/26/25 07/27/25 23:59 23:59 23:59 23:59 Intake Total 2740 3200 3680 1000 Output Total 850 Balance 2740 3200 2830 1000 Meds/Results Medications: Active Medications Generic Name Dose Route Start Last Admin Trade Name Freq PRN Reason Stop Dose Admin Hydrocodone Bitart/Acetaminophen 1 tab 07/24/25 15:46 07/27/25 05:23 Hydrocodone/Acetaminophen (*Crx) 5-325 Mg Tablet PO 1 tab Q4H PRN Administration Pain Rated 4-6 Hydrocodone Bitart/Acetaminophen 1 tab 07/24/25 15:46 07/25/25 21:28 Hydrocodone/Acetaminophen (*Crx) 7.5-325 Mg Tablet PO 1 tab Q4H PRN Administration Pain Rated 7-10 Benzocaine 1 lozenge 07/26/25 13:24 07/26/25 13:43 Benzocaine/Menthol (*Bkc) 18 Ea Lozenge PO 1 lozenge Q2H PRN Administration Sore Throat Sodium Chloride 1,000 mls @ 125 mls/hr 07/24/25 02:00 07/27/25 05:19 Normal Saline Iv IV CONT 125 mls/hr .Q8H LUAN Administration Piperacillin Sod/Tazobactam 50 mls @ 100 mls/hr 07/26/25 20:00 07/27/25 01:43 Sod 3.375 gm/ Sodium Chloride IVPB 100 mls/hr Q6H LUAN Administration Potassium Chloride 40 meq/ 520 mls @ 130 mls/hr 07/27/25 10:00 Sodium Chloride IVPB 07/27/25 13:59 ONCE ONE Morphine Sulfate 2 mg 07/24/25 15:46 07/26/25 08:04 Morphine Sulfate (*Crx) 2 Mg/Ml Inj IV PUSH 2 mg Q2H PRN Administration Breakthrough Pain Rated 4-6 or NPO Morphine Sulfate 4 mg 07/24/25 15:46 07/27/25 00:31 Morphine Sulfate (*Crx) 4 Mg/Ml Inj IV PUSH 4 mg Q2H PRN Administration Breakthrough Pain Rated 7-10 or NPO Naloxone HCl 0.1 mg 07/24/25 15:46 Naloxone Hcl 0.4 Mg/Ml Vial IV PUSH Q2M PRN Opiate Reversal Ondansetron HCl 4 mg 07/24/25 02:00 Ondansetron Inj 4 Mg/2 Ml Vial IV PUSH Q4H PRN Nausea Phenyleph/Shark Oil/Min Oil/Petrol 1 applic 07/25/25 16:00 07/26/25 10:08 Phenyleph/Shark Oil/Mo/Petrol Cream 26 Gm RECTAL 1 applic DAILY LUAN Administration Radiology Results: ITS Impressions Chest X-Ray 07/23/25 20:37 IMPRESSION: 1: NO ACUTE CARDIOPULMONARY DISEASE. Abdomen/Pelvis CT 07/24/25 08:37 IMPRESSION: 1. Findings concerning for acute cholecystitis. Ultrasound can be performed for further evaluation, as clinically indicated. 2. Multiple subcentimeter hypodensities are seen in the liver, incompletely evaluated on current examination. Nonemergent outpatient MRI is recommended for further evaluation, as clinically indicated. Upper Quadrant Ultrasound 07/24/25 12:37 IMPRESSION: 1. Cholelithiasis with prominent edematous wall thickening of the gallbladder which could be seen with acute cholecystitis. There is however no dilation of the gallbladder as typically seen with acute cholecystitis and the sonographic Delacruz sign was negative albeit with reduced sensitivity and differential would include chronic cholecystitis and hepatitis rather liver disease or heart, heart failure, renal failure or other generalized edema forming states. If clinically indicated could consider HIDA scan for further evaluation. Cholangiogram,Operative 07/24/25 14:17 IMPRESSION: 1. Filling defects distal common duct, suspicious for stones versus gas. There is partial obstruction to flow of contrast into the duodenum. The bile ducts are dilated. Labs Labs: Laboratory Results - last 24 hr 07/26/25 07/27/25 16:00 08:06 WBC 3.4 L RBC 3.96 L Hgb 11.4 L Hct 34.2 L MCV 86.4 MCH 28.8 MCHC 33.3 RDW 12.1 Plt Count 195 MPV 10.8 H Immature Gran % (Auto) 0.6 H Neut % (Auto) 41.0 L Lymph % (Auto) 49.6 H [place] % (Auto) 5.6 Eos % (Auto) 2.6 Baso % (Auto) 0.6 Lymph # (Auto) 1.69 [place] # (Auto) 0.2 Eos # (Auto) 0.1 Baso # (Auto) 0.0 Abs Immat Gran (auto) 0.02 Absolute Neuts (auto) 1.4 Absolute Nucleated RBC 0.000 Nucleated RBC % 0.0 Sodium 139 Potassium 2.7 L* Chloride 103 Carbon Dioxide 33 H Anion Gap 3 L BUN < 2 L Creatinine 0.61 L Estim Creat Clear Calc 88 Estimated GFR > 60 Glucose 77 POC Capillary Glucose 102 Calcium 9.3 Total Bilirubin 1.4 H AST 210 H ALT 370 H Alkaline Phosphatase 272 H Total Protein 5.7 L Albumin 3.0 L
[2025-07-27] MEDS: PHENYLEPH/SHARK OIL/MO/PETROL CREAM 26 GM 1 APPLIC RECTAL (10:09)
[2025-07-27] MEDS: POTASSIUM CHLORIDE 20 MEQ ER TABLET 40 MEQ PO (10:12)
--- NOTE | 2025-07-27 10:46 | P.PNIM_ITS ---
Progress Note: A&P Assessment and Plan (1) Acute cholecystitis: Code(s): K81.0 - Acute cholecystitis Status: Acute Assessment and Plan: * Cholangiogram demonstrated filling defects in the distal common duct, gerhard picious for stones versus gas. There is a partial obstruction to flow of contrast into the duodenum. The bile ducts are dilated. * POD 2 s/p laparoscopic cholecystectomy with IOC * IV fluids, Pain control,IV Zosyn * f/u blood culture * General surgery following * May need referral to Interventional GI given Aramis-en-Y from bypass if she does have retained CBD stone * Can eat today from surgical perspective - low fat diet (2) Choledocholithiasis: Code(s): K80.50 - Calculus of bile duct without cholangitis or cholecystitis without obstruction Status: Acute Assessment and Plan: * Monitor vital signs, I and O's, check stool output, neuro status and patient is a fall risk * Monitor serum electrolytes and CBC * IV pain management * MRCP today to rule out retained CBD stone * Has been completed - pending radiology interpretation * May need transfer to tertiary center (Interventional GI in [place]) or outpt referral due to hx of gastric bypass (3) Elevated liver enzymes: Code(s): R74.8 - Abnormal levels of other serum enzymes Status: Acute Assessment and Plan: * See above * GI consulted * MRCP today * 07/27: Slightly uptrending today (4) Essential (primary) hypertension: Code(s): I10 - Essential (primary) hypertension Status: Acute Assessment and Plan: * Patient's blood pressure was reviewed on 07/26 * Blood pressure remains well controlled Plan Hold all home medications due to NPO status DVT prophylaxis: SCDs Code status: Full Disposition: Admit to General Medicine Subjective Date/time seen: 07/27/25 10:46 Interval history: 60-year-old female with history of hypertension, MDD, RAMO presents to the ED with right-sided abdominal pain which radiates into her back intermittently for the past 4 days. Patient was admitted for acute cholecystitis. 07/27/2025 Patient sitting comfortably in bed at time of exam. Denies any chest pain, shortness of breath, n/v at this moment. Still has some throat pain post EGD yesterday but states it's manageable with lozenge. Hypokalemic with a K of 2.7 - > will give 40meq IV and oral and recheck K in the afternoon after infusion. Plan for MRCP today - will follow with GI/surgery. Likely will either need transfer or referral to tertiary center, depending on results. Still has some RUQ discomfort but states this is also manageable - LFTs slightly increased from yesterday. Review of Systems Review of Systems: All systems reviewed & are unremarkable except as noted in HPI and below Exam Narrative: General: well appearing, appears stated age. HEENT: normocephalic, . Mucous membranes moist. EOMI Respiratory: clear to ascultation bilaterally. No rales/rhonic/wheezes. Cardiovascular: Regular rate and rhythm, normal S1-S2 upon ascultation. No murmurs, rubs, or clicks. Abdomen: Soft, round, no pulsatile masses, nondistended and nontender. Bowel sounds present to all four quadrants. Extremities: No cyanosis, clubbing, or edema present. Neuro: Alert and orientated x 4. Cranial nerves 2-12 intact without focal deficit. Skin: Warm, dry, and intact, without rash, erythema, or lesion.? Psych: pleasant, cooperative, normal speech, normal affect Objective Data Vital Signs Vital Signs: Vital Signs - 24 hr 07/26/25 11:53 07/26/25 12:03 07/26/25 12:13 Temperature Pulse Rate 69 62 60 Respiratory Rate 18 20 18 Blood Pressure 132/88 112/80 123/73 Pulse Oximetry 100 100 100 Oxygen Delivery Room Air Room Air Room Air 07/26/25 12:23 07/26/25 12:33 07/26/25 12:43 Temperature Pulse Rate 56 L 53 L 54 L Respiratory Rate 18 16 18 Blood Pressure 127/82 134/81 130/73 Pulse Oximetry 100 100 100 Oxygen Delivery Room Air Room Air Room Air 07/26/25 12:55 07/26/25 13:20 07/26/25 13:50 Temperature 97.7 F 98.6 F 98.6 F Pulse Rate 53 L 54 L 56 L Respiratory Rate 18 20 20 Blood Pressure 155/89 H 141/83 H 140/80 Pulse Oximetry 100 100 100 Oxygen Delivery 07/26/25 14:50 07/26/25 18:36 07/26/25 20:26 Temperature 98.4 F 98.6 F Pulse Rate 50 L 54 L Respiratory Rate 18 20 Blood Pressure 142/84 H 140/80 Pulse Oximetry 100 100 Oxygen Delivery Room Air 07/26/25 21:15 07/27/25 05:49 Temperature 98.1 F 97.2 F L Pulse Rate 56 L 50 L Respiratory Rate 20 20 Blood Pressure 118/73 123/71 Pulse Oximetry 100 98 Oxygen Delivery Intake/Output Intake/Output: Intake & Output 07/24/25 07/25/25 07/26/25 07/27/25 23:59 23:59 23:59 23:59 Intake Total 2740 3200 3680 1050 Output Total 850 Balance 2740 3200 2830 1050 Meds/Results Medications: Active Medications Generic Name Dose Route Start Last Admin Trade Name Freq PRN Reason Stop Dose Admin Hydrocodone Bitart/Acetaminophen 1 tab 07/24/25 15:46 07/27/25 10:12 Hydrocodone/Acetaminophen (*Crx) 5-325 Mg Tablet PO 1 tab Q4H PRN Administration Pain Rated 4-6 Hydrocodone Bitart/Acetaminophen 1 tab 07/24/25 15:46 07/25/25 21:28 Hydrocodone/Acetaminophen (*Crx) 7.5-325 Mg Tablet PO 1 tab Q4H PRN Administration Pain Rated 7-10 Benzocaine 1 lozenge 07/26/25 13:24 07/26/25 13:43 Benzocaine/Menthol (*Bkc) 18 Ea Lozenge PO 1 lozenge Q2H PRN Administration Sore Throat Sodium Chloride 1,000 mls @ 125 mls/hr 07/24/25 02:00 07/27/25 05:19 Normal Saline Iv IV CONT 125 mls/hr .Q8H LUNA Administration Piperacillin Sod/Tazobactam 50 mls @ 100 mls/hr 07/26/25 20:00 07/27/25 10:14 Sod 3.375 gm/ Sodium Chloride IVPB 100 mls/hr Q6H LUAN Administration Potassium Chloride 40 meq/ 520 mls @ 130 mls/hr 07/27/25 10:00 Sodium Chloride IVPB 07/27/25 13:59 ONCE ONE Morphine Sulfate 2 mg 07/24/25 15:46 07/26/25 08:04 Morphine Sulfate (*Crx) 2 Mg/Ml Inj IV PUSH 2 mg Q2H PRN Administration Breakthrough Pain Rated 4-6 or NPO Morphine Sulfate 4 mg 07/24/25 15:46 07/27/25 00:31 Morphine Sulfate (*Crx) 4 Mg/Ml Inj IV PUSH 4 mg Q2H PRN Administration Breakthrough Pain Rated 7-10 or NPO Naloxone HCl 0.1 mg 07/24/25 15:46 Naloxone Hcl 0.4 Mg/Ml Vial IV PUSH Q2M PRN Opiate Reversal Ondansetron HCl 4 mg 07/24/25 02:00 Ondansetron Inj 4 Mg/2 Ml Vial IV PUSH Q4H PRN Nausea Phenyleph/Shark Oil/Min Oil/Petrol 1 applic 07/25/25 16:00 07/27/25 10:09 Phenyleph/Shark Oil/Mo/Petrol Cream 26 Gm RECTAL 1 applic DAILY LUAN Administration Radiology Results: ITS Impressions Chest X-Ray 07/23/25 20:37 IMPRESSION: 1: NO ACUTE CARDIOPULMONARY DISEASE. Abdomen/Pelvis CT 07/24/25 08:37 IMPRESSION: 1. Findings concerning for acute cholecystitis. Ultrasound can be performed for further evaluation, as clinically indicated. 2. Multiple subcentimeter hypodensities are seen in the liver, incompletely evaluated on current examination. Nonemergent outpatient MRI is recommended for further evaluation, as clinically indicated. Upper Quadrant Ultrasound 07/24/25 12:37 IMPRESSION: 1. Cholelithiasis with prominent edematous wall thickening of the gallbladder which could be seen with acute cholecystitis. There is however no dilation of the gallbladder as typically seen with acute cholecystitis and the sonographic Delacruz sign was negative albeit with reduced sensitivity and differential would include chronic cholecystitis and hepatitis rather liver disease or heart, heart failure, renal failure or other generalized edema forming states. If clinically indicated could consider HIDA scan for further evaluation. Cholangiogram,Operative 07/24/25 14:17 IMPRESSION: 1. Filling defects distal common duct, suspicious for stones versus gas. There is partial obstruction to flow of contrast into the duodenum. The bile ducts are dilated. Labs Labs: Laboratory Results - last 24 hr 07/26/25 07/27/25 16:00 08:06 WBC 3.4 L RBC 3.96 L Hgb 11.4 L Hct 34.2 L MCV 86.4 MCH 28.8 MCHC 33.3 RDW 12.1 Plt Count 195 MPV 10.8 H Immature Gran % (Auto) 0.6 H Neut % (Auto) 41.0 L Lymph % (Auto) 49.6 H [place] % (Auto) 5.6 Eos % (Auto) 2.6 Baso % (Auto) 0.6 Lymph # (Auto) 1.69 [place] # (Auto) 0.2 Eos # (Auto) 0.1 Baso # (Auto) 0.0 Abs Immat Gran (auto) 0.02 Absolute Neuts (auto) 1.4 Absolute Nucleated RBC 0.000 Nucleated RBC % 0.0 Sodium 139 Potassium 2.7 L* Chloride 103 Carbon Dioxide 33 H Anion Gap 3 L BUN < 2 L Creatinine 0.61 L Estim Creat Clear Calc 88 Estimated GFR > 60 Glucose 77 POC Capillary Glucose 102 Calcium 9.3 Total Bilirubin 1.4 H AST 210 H ALT 370 H Alkaline Phosphatase 272 H Total Protein 5.7 L Albumin 3.0 L Quality VTE Prophylaxis VTE prophylaxis: mechanical ordered
[2025-07-27] MEDS: POTASSIUM CHLORIDE INJ 40 MEQ in SODIUM CHLORIDE 0.9% IV 500 ML 130 MEQ IVPB (10:59)
[2025-07-27 13:00] VITALS: BP 130/60; PULSE 74; RESP 20; TEMP 36.4; O2SAT 98
[2025-07-27] MEDS: ONDANSETRON INJ 4 MG/2 ML VIAL IV PUSH (13:39)
[2025-07-27 15:00] VITALS: BP 125/82; PULSE 64; RESP 20; TEMP 36.4; O2SAT 100
[2025-07-27 22:39] VITALS: O2SAT 100
[2025-07-27 23:00] VITALS: BP 128/79; PULSE 63; RESP 18; TEMP 36.4; O2SAT 100
[2025-07-28] MEDS: PIPERACILLIN/TAZOBACTAM SOD 3.375 GM in SODIUM CHLORIDE 0.9% IV 50 ML 100 ML IVPB ×2 (02:34→08:37)
[2025-07-28 05:42] LABS: Hematocrit 34.7 % (37.0-47.0); Hemoglobin 11.4 g/dL (12.0-15.0); Immature Granulocyte Percent A 0.6 % (0-0.5); Lymphocytes Absolute Auto 1.48 K/mm3 (0.9-3.2); Mean Corpuscular HGB Conc 32.9 g/dl (32-36); Mean Corpuscular Hemoglobin 28.5 pg (26-34); Mean Corpuscular Volume 86.8 fl (80-100); Nucleated Red Blood Cells Absolute Auto 0.000 K/mm3 (0.0-0.012); Nucleated Red Blood Cells Perc 0.0 % (0.0-0.2); Platelet Count Result 204 k/mm3 (150-375); Red Blood Count 4.00 M/mm3 (4.2-5.4); White Blood Count 3.1 K/mm3 (4.5-10.0)
[2025-07-28] MEDS: SODIUM CHLORIDE 0.9% IV 1,000 ML 125 ML IV CONT (05:50)
[2025-07-28 05:55] LABS: Alanine Aminotransferase 455 U/L (6-35); Albumin Level 3.2 g/dL (3.5-5.1); Alkaline Phosphatase 305 U/L (38-126); Anion Gap 3 mmol/L (4-12); Aspartate Amino Transferase 403 U/L (14-36); Bilirubin,Total 1.0 mg/dL (0.2-1.3); Calcium 9.7 mg/dL (8.4-10.2); Carbon Dioxide 32 mmol/L (22-30); Chloride 105 mmol/L (98-107); Estimated CRCL calculation 86 ml/min; Estimated Glomerular Filt Rate > 60; Glucose 82 mg/dL (65-110); Potassium 3.1 mmol/L (3.4-5.0); Sodium 140 mmol/L (137-145); Total Protein 5.7 g/dL (6.3-8.2)
[2025-07-28 06:02] LABS: Blood Urea Nitrogen < 2 mg/dL (7-17)
[2025-07-28 06:19] VITALS: BP 127/78; PULSE 60; RESP 18; TEMP 36.5; O2SAT 98
--- NOTE | 2025-07-28 07:38 | P.PNIM_ITS ---
Progress Note: A&P Assessment and Plan (1) Acute cholecystitis: Code(s): K81.0 - Acute cholecystitis Status: Acute Assessment and Plan: -Cholangiogram demonstrated filling defects in the distal common duct, gerhard picious for stones versus gas. There is a partial obstruction to flow of contrast into the duodenum. The bile ducts are dilated. -POD 2 s/p laparoscopic cholecystectomy with IOC -IV fluids, Pain control,IV Zosyn -BCx - NGTD -General surgery following * May need referral to Interventional GI given Aramis-en-Y from bypass if she does have retained CBD stone * low fat diet (2) Choledocholithiasis: Code(s): K80.50 - Calculus of bile duct without cholangitis or cholecystitis without obstruction Status: Acute Assessment and Plan: - MRCP 07/27 -persistent mild intrahepatic biliary ductal dilation and dilation of the common hepatic duct measuring up to 1.7 cm, CBD 1.2 cm, choledocholithiasis with small stones (3-4mm) in the dependent mid common bile duct which did not appear to be obstructing - t bili 1.0 ( downtrending), AST 403, ALT 455, alk phos 305 (uptrending) -Monitor vital signs, I and O's, check stool output, neuro status and patient is a fall risk -Monitor serum electrolytes and CBC - pain management -May need transfer to tertiary center (Interventional GI in [place]) or outpt referral due to hx of gastric bypass (3) Elevated liver enzymes: Code(s): R74.8 - Abnormal levels of other serum enzymes Status: Acute Assessment and Plan: -See above -GI consulted -07/28: overall uptrending today (4) Essential (primary) hypertension: Code(s): I10 - Essential (primary) hypertension Status: Acute Assessment and Plan: -Patient's blood pressure was reviewed on 07/26 -Blood pressure remains well controlled Plan DVT prophylaxis: SCDs Code status: Full Subjective Date/time seen: 07/28/25 07:38 Interval history: 60-year-old female with history of hypertension, MDD, RAMO presents to the ED with right-sided abdominal pain which radiates into her back intermittently for the past 4 days. Patient was admitted for acute cholecystitis. Review of Systems Review of Systems: All systems reviewed & are unremarkable except as noted in HPI and below Exam Narrative: General: NAD Eyes: EOMI ENT: neck supple Cardiovascular: Regular rate and rhythm Respiratory: Clear to auscultation, respirations even and unlabored on RA Gastrointestinal: Soft, non tender Genitourinary: no suprapubic tenderness Musculoskeletal: No edema Skin: warm, dry Neuro: Alert. Psych: Mood appropriate Objective Data Vital Signs Vital Signs: Vital Signs - 24 hr 07/27/25 13:00 07/27/25 15:00 07/27/25 20:00 Temperature 97.6 F 97.5 F L Pulse Rate 74 64 Respiratory Rate 20 20 Blood Pressure 130/60 125/82 Pulse Oximetry 98 100 Oxygen Delivery Room Air 07/27/25 22:39 07/27/25 23:00 07/28/25 06:19 Temperature 97.5 F L 97.7 F Pulse Rate 63 60 Respiratory Rate 18 18 Blood Pressure 128/79 127/78 Pulse Oximetry 100 100 98 Oxygen Delivery Room Air Intake/Output Intake/Output: Intake & Output 07/25/25 07/26/25 07/27/25 07/28/25 23:59 23:59 23:59 23:59 Intake Total 3200 3680 3820 1000 Output Total 850 Balance 3200 2830 3820 1000 Meds/Results Medications: Active Medications Generic Name Dose Route Start Last Admin Trade Name Freq PRN Reason Stop Dose Admin Hydrocodone Bitart/Acetaminophen 1 tab 07/24/25 15:46 07/27/25 18:39 Hydrocodone/Acetaminophen (*Crx) 5-325 Mg Tablet PO 1 tab Q4H PRN Administration Pain Rated 4-6 Hydrocodone Bitart/Acetaminophen 1 tab 07/24/25 15:46 07/25/25 21:28 Hydrocodone/Acetaminophen (*Crx) 7.5-325 Mg Tablet PO 1 tab Q4H PRN Administration Pain Rated 7-10 Benzocaine 1 lozenge 07/26/25 13:24 07/26/25 13:43 Benzocaine/Menthol (*Bkc) 18 Ea Lozenge PO 1 lozenge Q2H PRN Administration Sore Throat Sodium Chloride 1,000 mls @ 125 mls/hr 07/24/25 02:00 07/28/25 05:50 Normal Saline Iv IV CONT 125 mls/hr .Q8H LUAN Administration Piperacillin Sod/Tazobactam 50 mls @ 100 mls/hr 07/26/25 20:00 07/28/25 02:34 Sod 3.375 gm/ Sodium Chloride IVPB 100 mls/hr Q6H LUAN Administration Morphine Sulfate 2 mg 07/24/25 15:46 07/26/25 08:04 Morphine Sulfate (*Crx) 2 Mg/Ml Inj IV PUSH 2 mg Q2H PRN Administration Breakthrough Pain Rated 4-6 or NPO Morphine Sulfate 4 mg 07/24/25 15:46 07/27/25 00:31 Morphine Sulfate (*Crx) 4 Mg/Ml Inj IV PUSH 4 mg Q2H PRN Administration Breakthrough Pain Rated 7-10 or NPO Naloxone HCl 0.1 mg 07/24/25 15:46 Naloxone Hcl 0.4 Mg/Ml Vial IV PUSH Q2M PRN Opiate Reversal Ondansetron HCl 4 mg 07/24/25 02:00 07/27/25 13:39 Ondansetron Inj 4 Mg/2 Ml Vial IV PUSH 4 mg Q4H PRN Administration Nausea Phenyleph/Shark Oil/Min Oil/Petrol 1 applic 07/25/25 16:00 07/27/25 10:09 Phenyleph/Shark Oil/Mo/Petrol Cream 26 Gm RECTAL 1 applic DAILY LUAN Administration Potassium Chloride 40 meq 07/28/25 07:38 Potassium Chloride 20 Meq Er Tablet PO 07/28/25 07:39 ONCE ONE Radiology Results: ITS Impressions Chest X-Ray 07/23/25 20:37 IMPRESSION: 1: NO ACUTE CARDIOPULMONARY DISEASE. Abdomen/Pelvis CT 07/24/25 08:37 IMPRESSION: 1. Findings concerning for acute cholecystitis. Ultrasound can be performed for further evaluation, as clinically indicated. 2. Multiple subcentimeter hypodensities are seen in the liver, incompletely evaluated on current examination. Nonemergent outpatient MRI is recommended for further evaluation, as clinically indicated. Upper Quadrant Ultrasound 07/24/25 12:37 IMPRESSION: 1. Cholelithiasis with prominent edematous wall thickening of the gallbladder which could be seen with acute cholecystitis. There is however no dilation of the gallbladder as typically seen with acute cholecystitis and the sonographic Delacruz sign was negative albeit with reduced sensitivity and differential would include chronic cholecystitis and hepatitis rather liver disease or heart, heart failure, renal failure or other generalized edema forming states. If clinically indicated could consider HIDA scan for further evaluation. Cholangiogram,Operative 07/24/25 14:17 IMPRESSION: 1. Filling defects distal common duct, suspicious for stones versus gas. There is partial obstruction to flow of contrast into the duodenum. The bile ducts are dilated. MRCP 07/27/25 17:32 IMPRESSION: 1. Changes consistent with recent interval cholecystectomy. 2. Persistent mild intrahepatic biliary ductal dilation the left hepatic lobe and dilation of the common hepatic duct measuring up to 1.7 cm and the common bile duct measuring up to 1.2 cm. Choledocholithiasis with a couple 3 mm and 4 mm stones in the dependent mid common bile duct which do not appear currently obstructing. 3. Stable appearance since MRI from 2021 and a couple hepatic hemangiomas which account for the low density lesions of concern on the recent prior CT. 4. Very small bilateral pleural effusions. Labs Labs: Laboratory Results - last 24 hr 07/27/25 07/28/25 08:06 05:20 WBC 3.4 L 3.1 L RBC 3.96 L 4.00 L Hgb 11.4 L 11.4 L Hct 34.2 L 34.7 L MCV 86.4 86.8 MCH 28.8 28.5 MCHC 33.3 32.9 RDW 12.1 12.3 Plt Count 195 204 MPV 10.8 H 11.0 H Immature Gran % (Auto) 0.6 H 0.6 H Neut % (Auto) 41.0 L 41.9 L Lymph % (Auto) 49.6 H 48.1 H [place] % (Auto) 5.6 5.2 Eos % (Auto) 2.6 3.6 Baso % (Auto) 0.6 0.6 Lymph # (Auto) 1.69 1.48 [place] # (Auto) 0.2 0.2 Eos # (Auto) 0.1 0.1 Baso # (Auto) 0.0 0.0 Abs Immat Gran (auto) 0.02 0.02 Absolute Neuts (auto) 1.4 1.3 Absolute Nucleated RBC 0.000 0.000 Nucleated RBC % 0.0 0.0 Sodium 139 140 Potassium 2.7 L* 3.1 L Chloride 103 105 Carbon Dioxide 33 H 32 H Anion Gap 3 L 3 L BUN < 2 L < 2 L Creatinine 0.61 L 0.63 L Estim Creat Clear Calc 88 86 Estimated GFR > 60 > 60 Glucose 77 82 Calcium 9.3 9.7 Total Bilirubin 1.4 H 1.0 AST 210 H 403 H ALT 370 H 455 H Alkaline Phosphatase 272 H 305 H Total Protein 5.7 L 5.7 L Albumin 3.0 L 3.2 L Quality VTE Prophylaxis VTE prophylaxis: mechanical ordered
[2025-07-28] MEDS: PHENYLEPH/SHARK OIL/MO/PETROL CREAM 26 GM 1 APPLIC RECTAL (08:35)
[2025-07-28] MEDS: POTASSIUM CHLORIDE 20 MEQ ER TABLET 40 MEQ PO (08:36)
[2025-07-28] MEDS: LINACLOTIDE 72 MCG CAPSULE PO (11:22)
--- NOTE | 2025-07-28 13:14 | PM.TDS ---
Transfer Discharge Sum: Prov Provider Date of admission: 07/24/25 02:00 Primary care physician: PHYSICIAN NOT ON STAFF Admitting clinician: Linda Cotto MD Consults: 07/24/25 02:00 Consult to Physician Routine Comment: Consulting Provider: Kwasi Gillis call center nurse/MD group to consult: Dr. Gillis Reason for consultation: Acute cholecystitis Has provider been notified: Yes Attending physician on discharge: Linda Cotto Discharging clinician: Stephanie Ye Anticipated date of transfer: 07/28/25 Receiving physician/facility: Dr. Gallardo (hospitalist), [facility] DS: Admitting Diagnosis Discharge Date 07/28/25 Admitting Diagnosis Acute cholecystitis DS: Discharge Diagnosis Discharge Diagnosis (1) Acute cholecystitis: Code(s): K81.0 - Acute cholecystitis Status: Acute (2) Choledocholithiasis: Code(s): K80.50 - Calculus of bile duct without cholangitis or cholecystitis without obstruction Status: Acute (3) Elevated liver enzymes: Code(s): R74.8 - Abnormal levels of other serum enzymes Status: Acute (4) Essential (primary) hypertension: Code(s): I10 - Essential (primary) hypertension Status: Acute Transfer Discharge Sum: Med Medications Active and Home Medications: Home Medications sumatriptan succinate 50 mg tablet 50 mg PO ONCE PRN Migraine Headache #12 tabs 12/08/20 [Rx Confirmed 07/24/25] linaclotide 72 mcg capsule (Linzess) 72 mcg PO DAILY #30 caps 01/13/22 [Rx Confirmed 07/24/25] omeprazole 20 mg capsule,delayed release 20 mg PO DAILY 07/24/25 [History Confirmed 07/24/25] Active Medications Hydrocodone Bitart/Acetaminophen (Hydrocodone/Acetaminophen (*Crx) 5-325 Mg Tablet) 1 tab PO Q4H PRN PRN Reason: Pain Rated 4-6 Last Admin: 07/27/25 18:39 Dose: 1 tab Hydrocodone Bitart/Acetaminophen (Hydrocodone/Acetaminophen (*Crx) 7.5-325 Mg Tablet) 1 tab PO Q4H PRN PRN Reason: Pain Rated 7-10 Last Admin: 07/25/25 21:28 Dose: 1 tab Benzocaine (Benzocaine/Menthol (*Bkc) 18 Ea Lozenge) 1 lozenge PO Q2H PRN PRN Reason: Sore Throat Last Admin: 07/26/25 13:43 Dose: 1 lozenge Sodium Chloride (Normal Saline Iv) 1,000 mls @ 125 mls/hr IV CONT .Q8H [facility] Last Admin: 07/28/25 05:50 Dose: 125 mls/hr Piperacillin Sod/Tazobactam (Sod 3.375 gm/ Sodium Chloride) 50 mls @ 100 mls/hr IVPB Q6H [facility] Last Infusion: 07/28/25 09:07 Dose: Infused Linaclotide (Linaclotide 72 Mcg Capsule) 72 mcg PO DAILY@0630 [facility] Last Admin: 07/28/25 11:22 Dose: 72 mcg Morphine Sulfate (Morphine Sulfate (*Crx) 2 Mg/Ml Inj) 2 mg IV PUSH Q2H PRN PRN Reason: Breakthrough Pain Rated 4-6 or NPO Last Admin: 07/26/25 08:04 Dose: 2 mg Morphine Sulfate (Morphine Sulfate (*Crx) 4 Mg/Ml Inj) 4 mg IV PUSH Q2H PRN PRN Reason: Breakthrough Pain Rated 7-10 or NPO Last Admin: 07/27/25 00:31 Dose: 4 mg Naloxone HCl (Naloxone Hcl 0.4 Mg/Ml Vial) 0.1 mg IV PUSH Q2M PRN PRN Reason: Opiate Reversal Ondansetron HCl (Ondansetron Inj 4 Mg/2 Ml Vial) 4 mg IV PUSH Q4H PRN PRN Reason: Nausea Last Admin: 07/27/25 13:39 Dose: 4 mg Phenyleph/Shark Oil/Min Oil/Petrol (Phenyleph/Shark Oil/Mo/Petrol Cream 26 Gm) 1 applic RECTAL DAILY [facility] Last Admin: 07/28/25 08:35 Dose: 1 applic Transfer Discharge Sum: Hosp Hospital Course Hospital course: Maggie Belcher is a 60 year old female with history of hypertension, MDD, RAMO, gastric bypass surgery who presented to the ED with right-sided abdominal pain for 4 days. In ED, CT A/P with findings concerning for acute cholecystitis. T bili 1.5, AST 611, ALT 600, alk phos 263. She was started on IV Zosyn, fluids and pain control. Patient was admitted for further management. Patient subsequently underwent cholecystectomy and intraoperative cholangiogram 07/24/25. IOC showed filling defects in the distal common bile duct. ERCP was attempted 07/26 however unable to complete due to patient's anatomy in setting of gastric bypass. After surgery, the patient's liver enzymes were initially improving however over the last 48 hours they have begun to rise again. She still has intermittent pain and nausea. MRCP 07/27 showed persistent mild intrahepatic biliary ductal dilation, choledocholithiasis (3 and 4mm stones), not necessarily obstructing. Stable appearance of hemangiomas. Case was discussed with ARMANDO Saunders on-call who recommended patient transfer to tertiary center for further evaluation given history of Aramis-en-Y bypass. Patient previously seen by bariatric surgeon Dr. Gonzales at [facility]. She was accepted in transfer to [facility] by ARMANDO, Dr. Bello (GI) and Dr. Gallardo (hospitalist). Patient transferred to [facility] in stable condition. Patient Condition: Stable Time Spent with Patient Time attestation: Total time spent providing and/or coordinating transfer services: Total time spent: Greater than 30 minutes Exam Narrative: General: NAD Eyes: EOMI ENT: neck supple Cardiovascular: Regular rate and rhythm Respiratory: Clear to auscultation, respirations even and unlabored on RA Gastrointestinal: Soft, non tender Genitourinary: no suprapubic tenderness Musculoskeletal: No edema Skin: warm, dry Neuro: Alert. Psych: Mood appropriate DS: Data Data Completed and Pending Completed studies during hospitalization: Pending at discharge ITS Impressions Chest X-Ray 07/23/25 20:37 IMPRESSION: 1: NO ACUTE CARDIOPULMONARY DISEASE. Abdomen/Pelvis CT 07/24/25 08:37 IMPRESSION: 1. Findings concerning for acute cholecystitis. Ultrasound can be performed for further evaluation, as clinically indicated. 2. Multiple subcentimeter hypodensities are seen in the liver, incompletely evaluated on current examination. Nonemergent outpatient MRI is recommended for further evaluation, as clinically indicated. Upper Quadrant Ultrasound 07/24/25 12:37 IMPRESSION: 1. Cholelithiasis with prominent edematous wall thickening of the gallbladder which could be seen with acute cholecystitis. There is however no dilation of the gallbladder as typically seen with acute cholecystitis and the sonographic Delacruz sign was negative albeit with reduced sensitivity and differential would include chronic cholecystitis and hepatitis rather liver disease or heart, heart failure, renal failure or other generalized edema forming states. If clinically indicated could consider HIDA scan for further evaluation. Cholangiogram,Operative 07/24/25 14:17 IMPRESSION: 1. Filling defects distal common duct, suspicious for stones versus gas. There is partial obstruction to flow of contrast into the duodenum. The bile ducts are dilated. MRCP 07/27/25 17:32 IMPRESSION: 1. Changes consistent with recent interval cholecystectomy. 2. Persistent mild intrahepatic biliary ductal dilation the left hepatic lobe and dilation of the common hepatic duct measuring up to 1.7 cm and the common bile duct measuring up to 1.2 cm. Choledocholithiasis with a couple 3 mm and 4 mm stones in the dependent mid common bile duct which do not appear currently obstructing. 3. Stable appearance since MRI from 2021 and a couple hepatic hemangiomas which account for the low density lesions of concern on the recent prior CT. 4. Very small bilateral pleural effusions. Pending studies at discharge: 07/24/25 14:00 Surgical [PTH] Routine Labs on day of discharge: Labs from last 24 hours 07/28/25 05:20 WBC 3.1 L RBC 4.00 L Hgb 11.4 L Hct 34.7 L MCV 86.8 MCH 28.5 MCHC 32.9 RDW 12.3 Plt Count 204 MPV 11.0 H Immature Gran % (Auto) 0.6 H Neut % (Auto) 41.9 L Lymph % (Auto) 48.1 H [place] % (Auto) 5.2 Eos % (Auto) 3.6 Baso % (Auto) 0.6 Lymph # (Auto) 1.48 [place] # (Auto) 0.2 Eos # (Auto) 0.1 Baso # (Auto) 0.0 Abs Immat Gran (auto) 0.02 Absolute Neuts (auto) 1.3 Absolute Nucleated RBC 0.000 Nucleated RBC % 0.0 Sodium 140 Potassium 3.1 L Chloride 105 Carbon Dioxide 32 H Anion Gap 3 L BUN < 2 L Creatinine 0.63 L Estim Creat Clear Calc 86 Estimated GFR > 60 Glucose 82 Calcium 9.7 Total Bilirubin 1.0 AST 403 H ALT 455 H Alkaline Phosphatase 305 H Total Protein 5.7 L Albumin 3.2 L Preliminary micro results at discharge 07/24/25 02:43 Blood Culture - Preliminary Blood 07/24/25 01:35 Blood Culture - Preliminary Blood
[2025-07-28 14:00] VITALS: BP 130/82; PULSE 69; RESP 20; TEMP 36.4; O2SAT 100
== END 2025-07-28 14:30 | disposition short-term general hospital (02) ==
LOC: ANHED 07-24 02:32 → ANH3MEDSUR 07-24 02:35
PROVIDERS: Internal Medicine Gastroenterology; Nurse Practitioner Adult Health; Physician Assistant; Student in an Organized Health Care Education/Training Program; Surgery; Admitting Provider Internal Medicine; Emergency Provider Physician Assistant; Visit Provider Internal Medicine
PROC: 0FT44ZZ Resection of Gallbladder, Percutaneous Endoscopic Approach (ICD-10-PCS; CPT 47562; principal; 2025-07-24 14:00)
PROC: (CPT 43260; principal; 2025-07-26 12:15)
DX: K80.42 Calculus of bile duct with acute cholecystitis without obstruction (principal); R93.2 Abnormal findings on diagnostic imaging of liver and biliary tract; R74.8 Abnormal levels of other serum enzymes; I10 Essential (primary) hypertension; Z98.84 Bariatric surgery status; K21.9 Gastro-esophageal reflux disease without esophagitis; F41.1 Generalized anxiety disorder; Z82.49 Family history of ischemic heart disease and other diseases of the circulatory system; Z83.3 Family history of diabetes mellitus; Z80.0 Family history of malignant neoplasm of digestive organs
CPT/HCPCS: 47563; 43260; 43235; 36415; 71046; 74177; 74183; 74300; 76376; 76705; 80048; 80053; 80074; 80076; 82948; 83690; 84484; 85025; 85027; 85610; 85730; 87040; 88304; 93005; 96361; 96365; 96375; 96376; 99285; A9270; A9577; G0378; J0330; J1100; J1171; J1200; J1885; J2003; J2250; J2270; J2371; J2405; J2543; J2704; J3480; J7030; J7040; J7120; Q9966; Q9967